=== PATIENT | female | born 1940 | race Caucasian/White ===

== ENCOUNTER → 2016-08-05 | Outpatient (CLI) | payer OTHER ==
[~2016-08-05] MED LIST: ANT25 PO; ASPEC81 PO; ASPI81TA28 PO; BUSP5TAB59 PO; BUSPAR 5 MG PO; CHOL1000 PO; CHOL100010 PO; CRAN1TAB9 PO; FAMO1TAB71 PO; GLC500 PO; GLIP5TAB3 PO; HYDR12.55; INSDGI SC; INSDGIPEN SC; LIRA18IN SC; LORA-741 PO; METF-384 PO; METO25TA56 PO; OMEGCAP2 PO; PROB1TAB16 PO; SIMV10TA2 PO
[2016-08-05 13:47] LABS: ESTIMATED AVERAGE GLUCOSE 157 mg/dl; HA1C FLAG Normal (Normal)
[2016-08-05 15:43] LABS: ALT/SGPT 41 U/L (12-78); AST/SGOT 23 U/L (15-37); BLOOD UREA NITROGEN 20 mg/dl (7-18); BUN/CREATININE RATIO 18.6 (10-20); CALCIUM 9.8 mg/dl (8.5-10.1); CARBON DIOXIDE 24 mmol/L (21-32); CHLORIDE 103 mmol/L (98-107); CHOLESTEROL 155 mg/dl (0-200); CHOLESTEROL/HDL RATIO 2.3; GLUCOSE 189 mg/dl (70-99); HDL CHOLESTEROL 66 mg/dl; POTASSIUM 4.2 mmol/L (3.5-5.1); SODIUM 139 mmol/L (136-145)
[2016-08-05 15:49] LABS: ALKALINE PHOSPHATASE 63 U/L (45-117); LDL CHOLESTEROL CALCULATED 43 mg/dl; TRIGLYCERIDES 232 mg/dl (0-150); VERY LOW DENSITY LIPOPROT CALC 46 mg/dl
== END | disposition home or self-care (01) ==
LOC: C.LABBFT 08:05
PROVIDERS: ATTEND Nurse Practitioner
DX: E11.29 Type 2 diabetes mellitus with other diabetic kidney complication (principal)

== ENCOUNTER → 2016-12-07 | Outpatient (CLI) | payer OTHER ==
[2016-12-07 12:32] LABS: ALT/SGPT 48 U/L (12-78); AST/SGOT 30 U/L (15-37); BLOOD UREA NITROGEN 28 mg/dl (7-18); BUN/CREATININE RATIO 23.2 (10-20); CARBON DIOXIDE 25 mmol/L (21-32); CHLORIDE 102 mmol/L (98-107); CHOLESTEROL 139 mg/dl (0-200); GLUCOSE 176 mg/dl (70-99); POTASSIUM 4.3 mmol/L (3.5-5.1); SODIUM 138 mmol/L (136-145); TRIGLYCERIDES 180 mg/dl (0-150); VERY LOW DENSITY LIPOPROT CALC 36 mg/dl
[2016-12-07 12:35] LABS: ALB/GLOB RATIO 1.1 (0.9-2); ALKALINE PHOSPHATASE 66 U/L (45-117); CHOLESTEROL/HDL RATIO 2.5; HDL CHOLESTEROL 55 mg/dl; LDL CHOLESTEROL CALCULATED 48 mg/dl
[2016-12-07 12:41] LABS: ESTIMATED AVERAGE GLUCOSE 166 mg/dl; HA1C FLAG Normal (Normal)
[2016-12-07 12:49] LABS: CALCIUM 10.1 mg/dl (8.5-10.1)
== END ==
LOC: C.LABBFT 07:43
PROVIDERS: ATTEND Nurse Practitioner
DX: E11.29 Type 2 diabetes mellitus with other diabetic kidney complication (principal)

== ENCOUNTER → 2017-01-27 | Outpatient (CLI) | payer OTHER ==
[2017-01-27 13:25] LABS: MANUAL MICROSCOPIC REQUIRED? YES; URINE APPEARANCE CLOUDY (CLEAR); URINE BILIRUBIN NEG (NEG); URINE COLOR RED; URINE NITRITE NEG (NEG); URINE PH 5.5 (4.5-7.5); URINE SPECIFIC GRAVITY 1.015 (1.000-1.030); UROBILINOGEN NEG (NEG)
[2017-01-27 13:42] LABS: REVIEW REQ? NO
[2017-01-27 13:44] LABS: URINE RBC >30 /hpf (0-4)
[2017-01-27 13:47] LABS: URINE BACTERIA NEG (NEG); URINE WBC >30 /hpf (0-5)
== END | disposition home or self-care (01) ==
LOC: C.LABBFT 10:49
PROVIDERS: ATTEND Physician Assistant Medical
DX: R39.9 Unspecified symptoms and signs involving the genitourinary system (principal)

== ENCOUNTER 2017-01-30 08:31 | Emergency (ER) | payer OTHER ==
[~2017-01-30] VITALS: Ht 157.5 cm; Wt 88.5 kg
[~2017-01-30 08:31] MED LIST changes: -ASPI81TA28 PO; -BUSP5TAB59 PO; -CHOL1000 PO; -INSDGIPEN SC; -LIRA18IN SC; -METF-384 PO; -METO25TA56 PO; -PROB1TAB16 PO
[2017-01-30 08:36] VITALS: TEMP 36.4; Ht 157.5 cm; Wt 88.5 kg
[2017-01-30] MEDS ORDERED: SODIUM CHLORIDE 0.9% 1000ML 1,000 ML IV STA (09:02)
[2017-01-30 09:24] LABS: BASO % 0.5 %; BASO ABS # 0.03 K/uL (0-0.2); COMPLETE YES; EOS % 2.2 %; HEMATOCRIT 40.2 % (37-47); IG% 0.2 %; LYMPH ABS # 1.35 K/uL (1.2-3.4); MEAN CELL VOLUME 91.4 fL (80-100); MEAN CORPUSCULAR HEMOGLOBIN 31.4 pg (25-34); MEAN CORPUSCULAR HGB CONC 34.3 g/dl (32-36); MEAN PLATELET VOLUME 10.7 fL (7.4-10.4); MONO % 10.1 %; PLATELET COUNT 184 K/uL (130-400); WHITE BLOOD COUNT 6.43 K/uL (4.8-10.8)
[2017-01-30 09:33] LABS: MANUAL MICROSCOPIC REQUIRED? YES; URINE APPEARANCE TURBID (CLEAR); URINE BILIRUBIN NEG (NEG); URINE COLOR BROWN; URINE NITRITE NEG (NEG); URINE PH 5.5 (4.5-7.5); URINE SPECIFIC GRAVITY 1.025 (1.000-1.030); UROBILINOGEN NEG (NEG)
[2017-01-30 09:34] LABS: REVIEW REQ? NO
[2017-01-30 09:41] LABS: BUN/CREATININE RATIO 20.2 (10-20); CALCIUM 9.2 mg/dl (8.5-10.1); CREATININE 1.3 mg/dl (0.60-1.20); POTASSIUM 4.1 mmol/L (3.5-5.1)
[2017-01-30 09:43] LABS: URINE RBC >30 /hpf (0-4); URINE WBC >30 /hpf (0-5)
--- NOTE | 2017-01-30 09:44 | DIAGNOSTIC IMAGING REPORT ---
CT SCAN OF THE ABDOMEN AND PELVIS WITHOUT IV CONTRAST CLINICAL HISTORY: Flank pain and hematuria. COMPARISON STUDY: No priors. TECHNIQUE: CT scan of the abdomen and pelvis is performed from the lung bases to the proximal femora. Images are reviewed in the axial, sagittal, and coronal planes. IV contrast was not administered for this examination. Automated dose control exposure was utilized. CT DOSE: 1485.78 mGy.cm FINDINGS: Lung bases: The heart is normal in size and without pericardial effusion. There are coronary artery calcifications. The lung bases are clear. Liver: The unenhanced liver is enlarged, measuring 22 cm in length. The liver demonstrates diffusely diminished attenuation consistent with hepatic steatosis. There is no intrahepatic biliary ductal dilatation. Gallbladder: Unremarkable. Spleen: Normal in size and attenuation. Pancreas: The unenhanced pancreas is moderately atrophic and grossly unremarkable. Adrenal glands: A 10 mm left adrenal nodule meets CT criteria for a fat-containing adenoma. The right adrenal gland is normal in appearance. Kidneys: The unenhanced kidneys are atrophic and without hydronephrosis. There are no renal calculi identified. There is no evidence of contour deforming renal mass lesion. There is a retroaortic left renal vein. Abdominal vasculature: The abdominal aorta is normal in course and caliber noting moderate atherosclerotic calcification. Bowel: The small bowel and colon are normal in course and caliber. There is advanced sigmoid diverticulosis without CT evidence of acute diverticulitis. The appendix is well-visualized and normal. Peritoneum: There is no intraperitoneal free air or abdominal ascites. There is a fat-containing umbilical hernia. Lymphadenopathy: None. Pelvic viscera: The bladder, uterus, and adnexa are normal as visualized. Skeletal structures: The skeletal structures are osteopenic. Mild to moderate lumbosacral spondylosis is observed. No lytic or blastic lesions are seen. IMPRESSION: 1. There are no acute infectious or inflammatory findings in the abdomen or pelvis. 2. Hepatomegaly and hepatic steatosis. 3. Advanced sigmoid diverticulosis without CT evidence of acute diverticulitis. 4. Additional findings as above. Electronically signed by: Te Watson M.D. 01/30/2017 9:43 AM Dictated Date/Time: 01/30/2017 9:32 AM
[2017-01-30 09:45] LABS: URINE BACTERIA 2+ (NEG)
[2017-01-30 09:46] LABS: ZZUR CULT IF INDIC CLEAN CATCH YES
[2017-01-30] MEDS ORDERED: METF-384 PO (09:56)
[2017-01-30] MEDS ORDERED: INSDGIPEN SC (09:56)
[2017-01-30] MEDS ORDERED: LIRA18IN SC (09:56)
[2017-01-30] MEDS ORDERED: METO25TA56 PO (09:56)
[2017-01-30] MEDS ORDERED: BUSP5TAB59 PO (09:56)
[2017-01-30] MEDS ORDERED: CHOL1000 PO (09:56)
[2017-01-30] MEDS ORDERED: ASPI81TA28 PO (09:56)
[2017-01-30] MEDS ORDERED: PROB1TAB16 PO (09:56)
--- NOTE | 2017-01-30 12:26 | EMERGENCY ROOM VISIT NOTE ---
History Report prepared by Cliff: Melinda Benitez Under the Supervision of: Dr. Estevan Berry D.O. First contact with patient: 08:44 Chief Complaint: URINARY SYMPTOMS Stated Complaint: BLOOD IN URINE,BURNING SENSATION,FREQUENCY Nursing Triage Summary: pt reports recent tx for UTI with 5 days of abx , urinary sx cont. History of Present Illness The patient is a 76 year old female who presents to the Emergency Room with complaints of persistent urinary symptoms that started 5 days ago. The patient states that she is experiencing increased urinary urgency, burning with urination, and hematuria. The hematuria started 3 days ago and is intermittent. The patient saw her PCP for the urinary symptoms, beside the hematuria, 5 days ago. She was started on a 5 day course of ciprofloxacin which she finished yesterday. She states that her symptoms returned this morning. The patient denies any pain including abdominal pain and back pain. A urine culture on January 27 was negative. Source of History: patient Onset: 5 days ago Position: other (bladder, urinary tract) Quality: other (urinary symptoms - increased urgency, burning, hematuria) Timing: other (persistent) Modifying Factors (Relieving): other (None) Associated Symptoms: No abdominal pain, No back pain Review of Systems See HPI for pertinent positives & negatives. A total of 10 systems reviewed and were otherwise negative. Past Medical & Surgical Medical Problems: (1) Diabetes (2) HTN (hypertension) (3) Vertigo Family History Patient reports no known family medical history. Social History Smoking Status: Never Smoker Marital Status: Current/Historical Medications Scheduled Aspirin (Aspirin Ec), 81 MG PO DAILY Buspirone Hcl (Buspirone Hcl), 1 TAB PO TID Cholecalciferol (Vitamin D3), 1 TAB PO DAILY Cranberry (Vaccinium Macrocarp (Cranberry), 300 MG PO DAILY Famotidine (Pepcid), 20 MG PO DAILY Glipizide (Glucotrol), 2.5 MG PO BIDM Insulin Glargine (Lantus Solostar), 42-44 UNITS SC UD Liraglutide (Victoza), 1.2 UNITS SC DAILY Metformin Hcl (Glucophage), 1,000 MG PO BID Metoprolol Tartrate (Lopressor) (Lopressor), 25 MG PO DAILY Palco-3 Fatty Acids (Fish Oil), 1 CAP PO DAILY Probiotic Product (Probiotic), 1 TAB PO DAILY Simvastatin (Zocor), 10 MG PO QPM Allergies Coded Allergies: No Known Allergies (Unverified , 01/30/17) Physical Exam Vital Signs Date Time Temp Pulse Resp B/P (MAP) Pulse Ox O2 Delivery O2 Flow Rate FiO2 01/30/17 13:11 82 16 166/90 94 01/30/17 12:05 96 17 157/83 95 Room Air 01/30/17 10:10 96 18 181/112 97 Room Air 01/30/17 08:36 36.4 91 20 180/84 98 Room Air Physical Exam CONSTITUTIONAL/VITAL SIGNS: Reviewed / noted above. GENERAL: Non-toxic in appearance. INTEGUMENTARY: Warm, dry, and Speed. HEAD: Normocephalic. EYES: without scleral icterus or trauma. ENT/OROPHARYNX: clear and moist. LYMPHADENOPATHY/NECK: Is supple without lymphadenopathy or meningismus. RESPIRATORY: Lungs clear and equal. CARDIOVASCULAR: Regular rate and rhythm. GI/ABDOMEN: Soft and nontender. No organomegaly or pulsatile mass. No rebound or guarding. Normal bowel sounds. EXTREMITIES: Warm and well perfused. BACK: No CVA tenderness. NEUROLOGICAL: Intact without focal deficits. PSYCHIATRIC: normal affect. MUSCULOSKELETAL: Normally developed with good muscle tone. Medical Decision & Procedures ER Provider Diagnostic Interpretation: CT results as stated below per my review and radiologist interpretation: CT SCAN OF THE ABDOMEN AND PELVIS WITHOUT IV CONTRAST FINDINGS: Lung bases: The heart is normal in size and without pericardial effusion. There are coronary artery calcifications. The lung bases are clear. Liver: The unenhanced liver is enlarged, measuring 22 cm in length. The liver demonstrates diffusely diminished attenuation consistent with hepatic steatosis. There is no intrahepatic biliary ductal dilatation. Gallbladder: Unremarkable. Spleen: Normal in size and attenuation. Pancreas: The unenhanced pancreas is moderately atrophic and grossly unremarkable. Adrenal glands: A 10 mm left adrenal nodule meets CT criteria for a fat-containing adenoma. The right adrenal gland is normal in appearance. Kidneys: The unenhanced kidneys are atrophic and without hydronephrosis. There are no renal calculi identified. There is no evidence of contour deforming renal mass lesion. There is a retroaortic left renal vein. Abdominal vasculature: The abdominal aorta is normal in course and caliber noting moderate atherosclerotic calcification. Bowel: The small bowel and colon are normal in course and caliber. There is advanced sigmoid diverticulosis without CT evidence of acute diverticulitis. The appendix is well-visualized and normal. Peritoneum: There is no intraperitoneal free air or abdominal ascites. There is a fat-containing umbilical hernia. Lymphadenopathy: None. Pelvic viscera: The bladder, uterus, and adnexa are normal as visualized. Skeletal structures: The skeletal structures are osteopenic. Mild to moderate lumbosacral spondylosis is observed. No lytic or blastic lesions are seen. IMPRESSION: 1. There are no acute infectious or inflammatory findings in the abdomen or pelvis. 2. Hepatomegaly and hepatic steatosis. 3. Advanced sigmoid diverticulosis without CT evidence of acute diverticulitis. 4. Additional findings as above. Electronically signed by: Te Watson M.D. 01/30/2017 9:43 AM Dictated Date/Time: 01/30/2017 9:32 AM Laboratory Results 01/30/17 09:10 Red Blood Count 4.40, Mean Corpuscular Volume 91.4, Mean Corpuscular Hemoglobin 31.4, Mean Corpuscular Hemoglobin Concent 34.3, Mean Platelet Volume 10.7, Neutrophils (%) (Auto) 66.0, Lymphocytes (%) (Auto) 21.0, Monocytes (%) (Auto) 10.1, Eosinophils (%) (Auto) 2.2, Basophils (%) (Auto) 0.5, Neutrophils # (Auto ) 4.25, Lymphocytes # (Auto) 1.35, Monocytes # (Auto) 0.65, Eosinophils # (Auto ) 0.14, Basophils # (Auto) 0.03 01/30/17 09:10 Test 01/30/17 09:10 White Blood Count 6.43 K/uL (4.8-10.8) Red Blood Count 4.40 M/uL (4.2-5.4) Hemoglobin 13.8 g/dL (12.0-16.0) Hematocrit 40.2 % (37-47) Mean Corpuscular Volume 91.4 fL (80-100) Mean Corpuscular Hemoglobin 31.4 pg (25-34) Mean Corpuscular Hemoglobin Concent 34.3 g/dl (32-36) Platelet Count 184 K/uL (130-400) Mean Platelet Volume 10.7 fL (7.4-10.4) Neutrophils (%) (Auto) 66.0 % Lymphocytes (%) (Auto) 21.0 % Monocytes (%) (Auto) 10.1 % Eosinophils (%) (Auto) 2.2 % Basophils (%) (Auto) 0.5 % Neutrophils # (Auto) 4.25 K/uL (1.4-6.5) Lymphocytes # (Auto) 1.35 K/uL (1.2-3.4) Monocytes # (Auto) 0.65 K/uL (0.11-0.59) Eosinophils # (Auto) 0.14 K/uL (0-0.5) Basophils # (Auto) 0.03 K/uL (0-0.2) RDW Standard Deviation 45.1 fL (36.4-46.3) RDW Coefficient of Variation 13.5 % (11.5-14.5) Immature Granulocyte % (Auto) 0.2 % Immature Granulocyte # (Auto) 0.01 K/uL (0.00-0.02) Urine Color BROWN Urine Appearance TURBID (CLEAR) Urine pH 5.5 (4.5-7.5) Urine Specific [place] 1.025 (1.000-1.030) Urine Protein 3+ (NEG) Urine Glucose (UA) NEG (NEG) Urine Ketones NEG (NEG) Urine Occult Blood 3+ (NEG) Urine Nitrite NEG (NEG) Urine Bilirubin NEG (NEG) Urine Urobilinogen NEG (NEG) Urine Leukocyte Esterase TRACE (NEG) Urine RBC >30 /hpf (0-4) Urine WBC >30 /hpf (0-5) Urine Epithelial Cells 20-30 /lpf (0-5) Urine Bacteria 2+ (NEG) Anion Gap 10.0 mmol/L (3-11) Est Creatinine Clear Calc Drug Dose 38.1 ml/min Estimated GFR () 46.2 Estimated GFR (Non- 39.8 BUN/Creatinine Ratio 20.2 (10-20) Calcium Level 9.2 mg/dl (8.5-10.1) Laboratory results as stated above per my review. Medications Administered Medications (Trade) Dose Ordered Sig/Bony Route Start Time Stop Time Status Last Admin Dose Admin Sodium Chloride 1,000 ml @ 999 mls/hr Q1H1M STAT IV 01/30/17 09:02 01/30/17 10:02 DC 01/30/17 09:13 999 MLS/HR ED Course 0859: Previous medical records were reviewed. The patient was evaluated in room B10. A complete history and physical examination was performed. 0902: Ordered Sodium Chloride 1000 ml @ 999 mls/hr IV 1228: On reevaluation, the patient is doing well. I discussed the results and findings with the patient. She verbalized agreement of the treatment plan. She was discharged home. Medical Decision Differential considered: pancreatitis, hepatitis, or acute cholecystitis, AAA, UTI, pyelonephritis, kidney stones, appendicitis, diverticulitis, shingles, bowel obstruction mesenteric ischemia, intussusception, hernia, ovarian torsion , ruptured ovarian cyst. Medication Reconciliation: I attest that I have personally reviewed the patient' s current medication list. Blood pressure Screening: Patient was found to have an elevated blood pressure and was referred to their primary doctor for recheck and further treatment. This is a 76-year-old female who presents to the ED with a chief complaint of hematuria. The patient states that she developed urinary symptoms on Tuesday and was started on Cipro. She states that she finished this yesterday. The patient developed hematuria this morning. She states she had a urine culture on the sixth. I did look this up and her culture was negative. She denies any other symptoms other than some burning with urination. Initial blood pressure revealed a hypertension. CBC is normal. BUN is 26 and creatinine is 1.3. Urine is concerning for infection. CT scan of the abdomen and pelvis did not show acute process. Because the patient had a recent culture 3 days ago that was negative. I feel her urine today is unlikely to be infected. She just finished Cipro yesterday. Culture is being performed. She will be contacted if the culture shows something. Otherwise she was given referral to follow-up with urology. She may benefit from cystoscopy. Impression Primary Impression: Hematuria Scribe Attestation The scribe's documentation has been prepared under my direction and personally reviewed by me in its entirety. I confirm that the note above accurately reflects all work, treatment, procedures, and medical decision making performed by me. Departure Information Dispostion Home / Self-Care Referrals Jeana Choudhury, C.R.N.P. (PCP) Gerson Briggs MD, Urology Patient Instructions ED Hematuria, My [facility] Additional Instructions A urine culture is being done. You will be called if your culture shows an infection. Follow-up with Dr. Gerson Briggs for recheck of your symptoms. Follow-up with your doctor for further care and evaluation in 1-2 days. Return to the emergency department for worsening or new symptoms or any concerns. You have been examined and treated today on an emergency basis only. This is not a substitute for, or an effort to provide, complete comprehensive medical care. It is impossible to recognize and treat all injuries or illnesses in a single emergency department visit. It is therefore important that you follow up closely with your doctor. Call as soon as possible for an appointment. Problem Qualifiers Primary Impression: Hematuria Hematuria type: unspecified type Qualified Codes: R31.9 - Hematuria, unspecified
[2017-01-30 13:11] VITALS: BP 166/90; PULSE 82; O2SAT 94
== END 2017-01-30 13:11 | disposition home or self-care (01) ==
LOC: C.EDB 08:33
DX: R31.9 Hematuria, unspecified (principal); E11.9 Type 2 diabetes mellitus without complications; I10 Essential (primary) hypertension; Z79.82 Long term (current) use of aspirin; Z79.4 Long term (current) use of insulin; Z79.899 Other long term (current) drug therapy

== ENCOUNTER → 2017-02-01 | Outpatient (CLI) | payer OTHER ==
[~2017-02-01] MED LIST changes: -ANT25 PO; -ASPEC81 PO; +ASPI81TA28 PO; +BUSP5TAB59 PO; -BUSPAR 5 MG PO; +CHOL1000 PO; -CHOL100010 PO; -GLC500 PO; -HYDR12.55; -INSDGI SC; +INSDGIPEN SC; +LIRA18IN SC; -LORA-741 PO; +METF-384 PO; +METO25TA56 PO; +PROB1TAB16 PO
== END | disposition home or self-care (01) ==
LOC: C.PATHSPEC 10:44
PROVIDERS: ATTEND Urology
DX: N39.0 Urinary tract infection, site not specified (principal)

== ENCOUNTER → 2017-02-14 | Outpatient (CLI) | payer OTHER ==
[2017-02-14 12:19] LABS: BLOOD UREA NITROGEN 19 mg/dl (7-18); BUN/CREATININE RATIO 16.8 (10-20)
== END | disposition home or self-care (01) ==
LOC: C.LABBFT 10:56
PROVIDERS: ATTEND Urology
DX: R31.0 Gross hematuria (principal)

== ENCOUNTER → 2017-02-16 | Outpatient (CLI) | payer OTHER ==
[~2017-02-16] MED LIST changes: +OPTIRAY 300 IV PRN
--- NOTE | 2017-02-16 14:41 | DIAGNOSTIC IMAGING REPORT ---
IV PYELOGRAM CLINICAL HISTORY: Hematuria. Urinary tract infections. COMPARISON STUDY: Abdominal CT dated 01/30/2017. TECHNIQUE: An abdominal [place] radiograph is performed. IVP pyelogram was then performed following the IV administration of iodinated contrast, tomographic images are acquired in the corticomedullary and excretory phases of enhancement. Overhead views of the renal collecting system and bladder were obtained in multiple obliquities both pre and post void. FINDINGS: Abdominal [place] radiograph shows a nonobstructed abdominal bowel gas pattern. No abnormal abdominal calcifications are identified. The skeletal structures are osteopenic. Lumbosacral spondylosis is observed. Following contrast administration there is symmetric renal cortical enhancement and contrast excretion. No hydronephrosis is seen. There are no filling defects identified within the renal pelvis bilaterally or along the course of the ureters. The bladder is normal as visualized. There is a small post void residual. IMPRESSION: 1. There is no radiographic evidence of nephrolithiasis. 2. Unremarkable IV pyelogram. 3. The bladder is normal as visualized. A small post void residual is identified. Electronically signed by: Te Watson M.D. 02/16/2017 2:40 PM Dictated Date/Time: 02/16/2017 2:37 PM
== END | disposition home or self-care (01) ==
LOC: C.RAD 12:27
PROVIDERS: ATTEND Urology
DX: N39.0 Urinary tract infection, site not specified (principal)

== ENCOUNTER → 2017-02-18 | Outpatient (CLI) | payer OTHER ==
[~2017-02-18] MED LIST changes: -OPTIRAY 300 IV PRN
[2017-02-18 10:07] LABS: BLOOD UREA NITROGEN 15 mg/dl (7-18)
== END | disposition home or self-care (01) ==
LOC: C.LAB 08:51
PROVIDERS: ATTEND Urology
DX: R31.0 Gross hematuria (principal)

== ENCOUNTER → 2017-04-07 | Outpatient (CLI) | payer OTHER ==
[2017-04-07 12:57] LABS: ESTIMATED AVERAGE GLUCOSE 169 mg/dl; HA1C FLAG Normal (Normal)
[2017-04-07 13:12] LABS: ALT/SGPT 42 U/L (12-78); BLOOD UREA NITROGEN 18 mg/dl (7-18); CALCIUM 9.5 mg/dl (8.5-10.1); CARBON DIOXIDE 26 mmol/L (21-32); CHLORIDE 104 mmol/L (98-107); GLUCOSE 186 mg/dl (70-99); POTASSIUM 4.2 mmol/L (3.5-5.1); SODIUM 138 mmol/L (136-145)
[2017-04-07 13:13] LABS: RATIO 23.3 mcg/mg (0-30.0)
[2017-04-07 13:15] LABS: ALKALINE PHOSPHATASE 54 U/L (45-117); AST/SGOT 29 U/L (15-37)
== END | disposition home or self-care (01) ==
LOC: C.LABBFT 07:57
PROVIDERS: ATTEND Nurse Practitioner
DX: E11.29 Type 2 diabetes mellitus with other diabetic kidney complication (principal); N28.9 Disorder of kidney and ureter, unspecified

== ENCOUNTER → 2017-10-13 | Outpatient (CLI) | payer OTHER ==
[~2017-10-13] MED LIST changes: +FAMO-103 PO; -FAMO1TAB71 PO
[2017-10-13 12:16] LABS: HEMATOCRIT 41.3 % (37-47); HEMOGLOBIN 13.7 g/dL (12.0-16.0); MEAN CELL VOLUME 91.2 fL (80-100); MEAN CORPUSCULAR HEMOGLOBIN 30.2 pg (25-34); MEAN CORPUSCULAR HGB CONC 33.2 g/dl (32-36); PLATELET COUNT 207 K/uL (130-400); RED CELL DISTRIBUTION WIDTH CV 14.1 % (11.5-14.5); RED CELL DISTRIBUTION WIDTH SD 47.2 fL (36.4-46.3); WHITE BLOOD COUNT 5.39 K/uL (4.8-10.8)
[2017-10-13 12:44] LABS: ALBUMIN 3.6 gm/dl (3.4-5.0); ALT/SGPT 39 U/L (12-78); AST/SGOT 21 U/L (15-37); BLOOD UREA NITROGEN 24 mg/dl (7-18); CALCIUM 9.9 mg/dl (8.5-10.1); CARBON DIOXIDE 24 mmol/L (21-32); CHOLESTEROL 145 mg/dl (0-200); CREATININE 1.14 mg/dl (0.60-1.20); GLUCOSE 174 mg/dl (70-99); POTASSIUM 4.5 mmol/L (3.5-5.1); SODIUM 136 mmol/L (136-145)
[2017-10-13 12:46] LABS: ALKALINE PHOSPHATASE 64 U/L (45-117); LDL CHOLESTEROL CALCULATED 40 mg/dl; TOTAL PROTEIN 7.7 gm/dl (6.4-8.2)
[2017-10-13 13:08] LABS: HEMOGLOBIN A1C 7.7 % (4.5-5.6)
== END | disposition home or self-care (01) ==
LOC: C.LABBFT 07:38
PROVIDERS: ATTEND Nurse Practitioner
DX: E11.29 Type 2 diabetes mellitus with other diabetic kidney complication (principal)

== ENCOUNTER 2024-01-28 21:14 | Inpatient (IN) ==
[2024-01-28] MEDS: ONDANSETRON INJ 2 MG/ML 2 ML VIAL ONE (21:36)
[2024-01-28] MEDS: PROCHLORPERAZINE 1 ML IV ONE (21:43)
[2024-01-28] MEDS: SODIUM CHLORIDE 0.9% 1,000 ML IV ONE ×2 (21:43→23:20)
--- NOTE | 2024-01-28 21:52 | Emergency Department Note ---
Impression & Plan Dizziness, Acute kidney injury superimposed on chronic kidney disease, Acute UTI (urinary tract infection), Ambulatory dysfunction ED Provider Note HISTORY OF PRESENT ILLNESS: Patient is an 83-year-old female presenting with "unsteadiness." Patient reports that around 8:00 this evening she became very unsteady. Reports that she feels unsteady both seated and standing. States that she has a history of vertigo and this "feels the same but also different." Denies any chest pain or shortness of breath with the episode. She does report breaking out into a sweat when this occurred. Denies any DVT or PE history. She had a fingerstick glucose at home of 150. Denies any abdominal pain or back pain during the episode. Denies any numbness or tingling or weakness in her extremities. She does report some nausea and a few episode of vomiting prior to arrival. Reports feeling nauseous on arrival to the ER. Denies any recent medication changes. Denies any recent falls or head injury or chiropractic manipulation of her neck ROS: as above PHYSICAL EXAM: Constitutional: Patient appears in no acute distress. HENT: Head: Normocephalic and atraumatic. Eyes: EOMI, PERRL Mouth/Throat: Mucous membranes moist. Neck: Trachea midline. Neck supple. Cardiovascular: RRR, No murmurs, rubs or gallops. Intact distal pulses. Pulmonary/Chest: No respiratory distress. Breath sounds clear and equal bilaterally. No wheezes or rales. Abdominal: Abdomen soft, no tenderness, rebound or guarding. Musculoskeletal: No edema, tenderness or deformity noted. Skin: Warm and dry. No rash, erythema, pallor or cyanosis Psychiatric: Appropriate mood and affect for situation. Neurological: Alert and keenly responsive. CN II-XII grossly intact, moving all extremities equally and fully. MDM: - Vitals signs showed tachycardia and tachypnea - History obtained via patient. History as above. - Chronic conditions affecting care: HTN; HLD; CKD; DM-2 - Differential diagnoses include, but are not limited to: CVA; intracranial hemorrhage; dysrhythmia; electrolyte abnormality; ACS - Order placed for continuous cardiac monitoring. At this time, monitor showed rate of 91 bpm with normal sinus rhythm, per my interpretation. - External medical records reviewed. Primary care visit note dated 08/31/2023 was reviewed. Patient follows in their clinic for her type 2 diabetes. She was also seen for new foot pain - EKG interpreted by myself showed normal sinus rhythm. Rate 93 bpm. QT 398. No acute ischemic changes. Noted to have an incomplete right bundle branch block. - Laboratory workup interpreted by myself showed normal WBC; normal PT/INR; stable electrolytes; elevated anion gap (14); AME on CKD (Cr 1.58 - baseline around 1.3); normal troponin; normal lipase - UA showed evidence of infection. Given 2g IV rocephin - Viral respiratory panel negative - CT head wo contrast negative for acute intracranial pathology - CXR negative for pneumonia, per my interpretation - Patient given 1L NS and 5 mg IV compazine. She started having further nausea and was given 1L NS and 4 mg IV zofran. - On reassessment, patient reports she was feeling "slightly better" but was still having some "unsteadiness" when she went to the restroom. She did apparently desaturate to 87% on room air and was placed on 2 L nasal cannula by nursing staff. However, on my reassessment at 0100 a.m. on 01/29/2024, the patient saturations are 96% on room air - Discussed results with the patient. She does not feel comfortable going home at this time given her "continued unsteadiness." - Discussion was had with counseling case manager about patient's case and need for admission - Hospitalist, Dr. Rivera, consulted for admission - Patient admitted to [facility] for further evaluation and management. ASSESSMENT AND PLAN: Diagnosis: dizziness; acute UTI; ambulatory dysfunction; AME on CKD Plan: admit Past Med/Surg History Problem List (Updated 01/29/24 @ 01:04 by Karina Snyder MD) Ambulatory dysfunction (Acute) Acute UTI (urinary tract infection) (Acute) Acute kidney injury superimposed on chronic kidney disease (Acute) Dizziness (Acute) Hypertriglyceridemia Gout Obesity (Acute) Controlled type 2 diabetes with renal manifestation (Acute) Atrial premature complex (Acute) Anxiety disorder due to medical condition (Acute) Chronic low back pain Stage III chronic kidney disease Arthritis (Acute) Hearing loss (Acute) Hypercholesterolemia (Acute) HTN (hypertension) (Chronic) Medical History Anxiety hx of situational anxiety - taking buspirone from 10 years ago Arthritis Diabetes mellitus, type 2 IDDM Hearing loss HTN (hypertension) Hypercholesterolemia Stage III chronic kidney disease Vertigo triggered by laying supine. Surgical History History of colonoscopy History of left cataract surgery History of tubal ligation Family History Father Cardiac disorder Myocardial infarction Mother Diabetes Cardiac disorder Hypertension Grandmother (Paternal) Breast cancer Other No family history of adverse response to anesthesia Denies family history of Ovarian cancer Prostate cancer Colorectal cancer Social History Smoking Status: Never smoker Tobacco Type: Cigarettes Age Started Using Tobacco: 16; Age Quit Using Tobacco: 62; packs per day: 1; Second Hand Exposure: No; Do You Dip or Chew Tobacco: No; Hx Alcohol Use: No Hx Substance Use: No Preferred Language: Croatian Communication Ability: Effective Visual Impairment: No Limitations Hearing Ability: Use of Hearing Aid Vendor Management Specialist Required: No Beliefs That Will Affect Care: None marital status: Current Living Situation: Spouse current occupational status: retired current occupation: used to teach middle school, all subjects Feels Safe at Home: Yes Childhood Exposure to Second-Hand Smoke: Yes Diet: regular Dental Care, Regularly: Yes Physical Activity Frequency: 1-2 Times per Week Seatbelt Use: always Sunscreen Use: No Assistive Devices: Denture - Upper, Denture - Lower and Glasses Allergies Allergies Allergy/AdvReac Type Severity Reaction Status Date / Time No Known Allergies Allergy Verified 09/02/23 14:35 Home Meds Home Medications Medication Instructions Recorded Confirmed cholecalciferol (vitamin D3) 25 25 mcg PO QAM 01/02/20 01/29/24 mcg (1,000 unit) capsule cranberry extract 250 mg capsule 250 mg PO QAM 10/20/22 01/29/24 famotidine 20 mg tablet 20 mg PO QPM 10/20/22 01/29/24 acarbose 25 mg tablet 25 mg PO UD 01/29/24 01/29/24 amlodipine 5 mg tablet 5 mg PO DAILY 01/29/24 01/29/24 dulaglutide 1.5 mg/0.5 mL 1.5 mg subcut WK 01/29/24 01/29/24 subcutaneous pen injector (Trulicity) Previous Rx's Medication Instructions Recorded metformin 1,000 mg tablet 1,000 mg PO BID #180 tabs 12/31/22 tetanus-diphtheria toxoids-Td 2 Lf 0.5 ml IM ONCE #0.5 mL 02/28/23 unit-2 Lf unit/0.5 mL IM suspension (TDVAX) blood sugar diagnostic (OneTouch #100 ea 03/01/23 Ultra Test strips) tizanidine 4 mg tablet 2 mg (1/2 x 4 mg) PO BID PRN 03/11/23 muscle spasticity #30 tabs metoprolol succinate 50 mg 50 mg PO BID #180 tabs 04/25/23 tablet,extended release 24 hr lisinopril 40 mg tablet 40 mg PO QAM #90 tabs 06/30/23 empagliflozin 25 mg tablet 25 mg PO QAM 90 days #90 tabs 08/04/23 (Jardiance) allopurinol 100 mg tablet 50 mg (1/2 x 100 mg) PO DAILY 90 10/04/23 days #45 tabs insulin glargine 100 unit/mL (3 54 unit (0.54 mL) subcut QAM #15 mL 11/23/23 mL) subcutaneous pen (Lantus Solostar U-100 Insulin) pen needle, diabetic 31 gauge x #100 ea 11/23/23 3/" buspirone 5 mg tablet 5 mg PO TID #270 tabs 01/10/24 simvastatin 10 mg tablet 10 mg PO QPM #90 tabs 01/10/24 Results & Data (ED) Vital Signs Vital Signs - 24 hr 01/28/24 21:25 01/28/24 21:33 01/28/24 21:39 Temperature 36.5 C Temperature Source Oral Pulse Rate 91 H 89 Pulse Rate [Apical] 88 Respiratory Rate 20 24 Respiratory Effort / Characteristics Non-Labored Spontaneous Respiratory Depth Normal Respiratory Pattern Regular Blood Pressure 149/79 H Blood Pressure [Right Arm] 119/76 Blood Pressure Mean 102 Blood Pressure Mean [Right Arm] 90 Pulse Oximetry 97 95 Oxygen Delivery Method Room Air Room Air Oxygen Flow Rate Sepsis Recent Fever Within 48 Hours No Sepsis New/Unexplained Change in Mental Status No Sepsis Action Taken by Nursing No Action Required Oxygen Flow Rate - Titration Pulse Oximetry Post Tiitration 01/28/24 21:42 01/28/24 22:31 01/28/24 23:27 Temperature Temperature Source Pulse Rate 92 H Pulse Rate [Apical] 96 H Respiratory Rate 27 H 29 H Respiratory Effort / Characteristics Respiratory Depth Respiratory Pattern Blood Pressure Blood Pressure [Right Arm] 103/70 Blood Pressure Mean Blood Pressure Mean [Right Arm] 81 Pulse Oximetry 95 94 87 L Oxygen Delivery Method Room Air Room Air Oxygen Flow Rate 0 Sepsis Recent Fever Within 48 Hours Sepsis New/Unexplained Change in Mental Status Sepsis Action Taken by Nursing Oxygen Flow Rate - Titration 2 Pulse Oximetry Post Tiitration 93 01/29/24 00:00 Temperature Temperature Source Pulse Rate Pulse Rate [Apical] 91 H Respiratory Rate 24 Respiratory Effort / Characteristics Respiratory Depth Respiratory Pattern Blood Pressure Blood Pressure [Right Arm] 132/84 Blood Pressure Mean Blood Pressure Mean [Right Arm] 100 Pulse Oximetry 96 Oxygen Delivery Method Nasal Cannula Oxygen Flow Rate 2 Sepsis Recent Fever Within 48 Hours Sepsis New/Unexplained Change in Mental Status Sepsis Action Taken by Nursing Oxygen Flow Rate - Titration Pulse Oximetry Post Tiitration Laboratory Data 01/28/24 21:36 01/28/24 21:36 Lab Results 01/28/24 01/28/24 01/28/24 Range/Units 21:36 21:38 21:40 WBC 8.11 (4.8-10.8) K/ul RBC 4.61 (4.20-5.40) M/uL Hgb 12.0 (12.0-16.0) g/dl Hct 39.1 (37.0-47.0) % MCV 84.8 (80.0-100.0) fL MCH 26.0 (25.0-34.0) pg MCHC 30.7 L (32.0-36.0) g/dL RDW Std Deviation 45.4 (36.4-46.3) fL RDW Coeff of Rachid 15.0 H (11.5-14.5) % Plt Count 305 (130-400) K/uL MPV 9.9 (9.4-12.4) fL Immature Gran % (Auto) 0.2 % Neut % (Auto) 48.0 % Lymph % (Auto) 37.1 % [place] % (Auto) 10.7 % Eos % (Auto) 3.3 % Baso % (Auto) 0.7 % Neut # (Auto) 3.88 (1.40-6.50) K/uL Lymph # (Auto) 3.01 (1.20-3.40) K/uL [place] # (Auto) 0.87 H (0.11-0.59) K/uL Eos # (Auto) 0.27 (0.00-0.50) K/uL Baso # (Auto) 0.06 (0.00-0.20) K/uL Immature Gran # (Auto) 0.02 (0.01-0.20) K/uL PT 10.9 (9.0-12.0) Seconds INR 1.0 (0.9-1.1) Sodium 136 (136-145) mmol/L Potassium 4.2 (3.5-5.1) mmol/L Chloride 101 (98-107) mmol/L Carbon Dioxide 21 (21-32) mmol/L Anion Gap 14 H (3-11) BUN 27 H (6-23) mg/dl Creatinine 1.58 H (0.6-1.2) mg/dl Est Cr Clr Drug Dosing 29.2 ml/min Est GFR ( Amer) 34.7 ml/min Est GFR (Non-Af Amer) 29.9 ml/min BUN/Creatinine Ratio 17.1 (10-20) Glucose 132 H (70-99(Fasting)) mg/dl Calcium 9.6 (8.6-10.3) mg/dl Magnesium 1.9 (1.7-2.4) mg/dl Total Bilirubin 0.4 (0.2-1.0) mg/dl AST 13 (13-39) U/L ALT 9 (7-52) U/L Alkaline Phosphatase 68 (34-104) U/L Troponin I High Sens 4.4 (0-14) pg/ml Total Protein 8.4 H (6.0-8.3) gm/dl Albumin 4.6 (3.4-5.0) gm/dl Globulin 3.8 (2.5-4.0) gm/dl Albumin/Globulin Ratio 1.2 (0.9-2) Lipase 79 (11-82) U/L Urine Color Urine Appearance (Clear) Urine pH (4.5-7.5) Ur Specific [place] (1.000-1.030) Urine Protein (Negative) Urine Glucose (UA) (Negative) Urine Ketones (Negative) Urine Blood (Negative) Urine Nitrite (Negative) Urine Bilirubin (Negative) Urine Urobilinogen (Negative) Ur Leukocyte Esterase (Negative) Urine WBC (Auto) (0-5) /hpf Urine RBC (Auto) (0-2) /hpf U Hyaline Cast (Auto) (0-2) /lpf U Epithel Cells (Auto) (0-2) /hpf Urine Bacteria (Auto) (None Seen) Adenovirus (PCR) Not Detected (NotDetected) B. pertussis DNA (PCR) Not Detected (NotDetected) B.parapertussis DNA PCR Not Detected (NotDetected) C. pneumoniae DNA (PCR) Not Detected (NotDetected) Coronavirus OC43 (PCR) Not Detected (NotDetected) Coronavirus HKU1 (PCR) Not Detected (NotDetected) Coronavirus 229E (PCR) Not Detected (NotDetected) SARS-CoV-2 (PCR) Not Detected (NotDetected) Coronavirus NL63 (PCR) Not Detected (NotDetected) Human Metapneumovir PCR Not Detected (NotDetected) Influenza Type A (PCR) Not Detected (NotDetected) Influenza Type B (PCR) Not Detected (NotDetected) M. pneumoniae (PCR) Not Detected (NotDetected) Parainfluenza 1 (PCR) Not Detected (NotDetected) Parainfluenza 2 (PCR) Not Detected (NotDetected) Parainfluenza 3 (PCR) Not Detected (NotDetected) Parainfluenza 4 (PCR) Not Detected (NotDetected) RSV (PCR) Not Detected (NotDetected) Entero/Rhino (PCR) Not Detected (NotDetected) Blood Type O Positive Antibody Screen NEGATIVE 01/28/24 Range/Units 22:30 WBC (4.8-10.8) K/ul RBC (4.20-5.40) M/uL Hgb (12.0-16.0) g/dl Hct (37.0-47.0) % MCV (80.0-100.0) fL MCH (25.0-34.0) pg MCHC (32.0-36.0) g/dL RDW Std Deviation (36.4-46.3) fL RDW Coeff of Rachid (11.5-14.5) % Plt Count (130-400) K/uL MPV (9.4-12.4) fL Immature Gran % (Auto) % Neut % (Auto) % Lymph % (Auto) % [place] % (Auto) % Eos % (Auto) % Baso % (Auto) % Neut # (Auto) (1.40-6.50) K/uL Lymph # (Auto) (1.20-3.40) K/uL [place] # (Auto) (0.11-0.59) K/uL Eos # (Auto) (0.00-0.50) K/uL Baso # (Auto) (0.00-0.20) K/uL Immature Gran # (Auto) (0.01-0.20) K/uL PT (9.0-12.0) Seconds INR (0.9-1.1) Sodium (136-145) mmol/L Potassium (3.5-5.1) mmol/L Chloride (98-107) mmol/L Carbon Dioxide (21-32) mmol/L Anion Gap (3-11) BUN (6-23) mg/dl Creatinine (0.6-1.2) mg/dl Est Cr Clr Drug Dosing ml/min Est GFR ( Amer) ml/min Est GFR (Non-Af Amer) ml/min BUN/Creatinine Ratio (10-20) Glucose (70-99(Fasting)) mg/dl Calcium (8.6-10.3) mg/dl Magnesium (1.7-2.4) mg/dl Total Bilirubin (0.2-1.0) mg/dl AST (13-39) U/L ALT (7-52) U/L Alkaline Phosphatase (34-104) U/L Troponin I High Sens (0-14) pg/ml Total Protein (6.0-8.3) gm/dl Albumin (3.4-5.0) gm/dl Globulin (2.5-4.0) gm/dl Albumin/Globulin Ratio (0.9-2) Lipase (11-82) U/L Urine Color Yellow Urine Appearance Cloudy A (Clear) Urine pH 5.5 (4.5-7.5) Ur Specific [place] 1.020 (1.000-1.030) Urine Protein Trace H (Negative) Urine Glucose (UA) 3+ H (Negative) Urine Ketones Trace H (Negative) Urine Blood Negative (Negative) Urine Nitrite Negative (Negative) Urine Bilirubin Negative (Negative) Urine Urobilinogen Negative (Negative) Ur Leukocyte Esterase 2+ H (Negative) Urine WBC (Auto) 21-50 H (0-5) /hpf Urine RBC (Auto) 0-2 (0-2) /hpf U Hyaline Cast (Auto) 0-2 (0-2) /lpf U Epithel Cells (Auto) 6-10 H (0-2) /hpf Urine Bacteria (Auto) 1+ H (None Seen) Adenovirus (PCR) (NotDetected) B. pertussis DNA (PCR) (NotDetected) B.parapertussis DNA PCR (NotDetected) C. pneumoniae DNA (PCR) (NotDetected) Coronavirus OC43 (PCR) (NotDetected) Coronavirus HKU1 (PCR) (NotDetected) Coronavirus 229E (PCR) (NotDetected) SARS-CoV-2 (PCR) (NotDetected) Coronavirus NL63 (PCR) (NotDetected) Human Metapneumovir PCR (NotDetected) Influenza Type A (PCR) (NotDetected) Influenza Type B (PCR) (NotDetected) M. pneumoniae (PCR) (NotDetected) Parainfluenza 1 (PCR) (NotDetected) Parainfluenza 2 (PCR) (NotDetected) Parainfluenza 3 (PCR) (NotDetected) Parainfluenza 4 (PCR) (NotDetected) RSV (PCR) (NotDetected) Entero/Rhino (PCR) (NotDetected) Blood Type Antibody Screen Administered Medications Discontinued Medications Sodium Chloride (Nss) 1,000 mls @ 999 mls/hr IV .Q1H1M ONE Stop: 01/28/24 22:35 Last Infusion: 01/28/24 22:49 Dose: Infused Documented By: Admin: 01/28/24 21:43 Dose: 999 mls/hr Documented By: GONZALO Prochlorperazine (Compazine) 1 mls @ 1 mls/min IV ONE ONE Stop: 01/28/24 21:36 Last Admin: 01/28/24 21:43 Dose: 1 mls/min Documented By: GONZALO Sodium Chloride (Nss) 1,000 mls @ 999 mls/hr IV .Q1H1M ONE Stop: 01/29/24 00:05 Last Admin: 01/28/24 23:20 Dose: 999 mls/hr Documented By: GONZALO Ceftriaxone Sodium (Rocephin) 2,000 mg in 50 mls @ 100 mls/hr IV NOW STA Stop: 01/28/24 23:35 Last Infusion: 01/28/24 23:54 Dose: Infused Documented By: Admin: 01/28/24 23:20 Dose: 100 mls/hr Documented By: GONZALO Ondansetron HCl (Ondansetron Inj 2 Mg/Ml 2 Ml Vial) Confirm Administered Dose 4 mg .ROUTE .STK-MED ONE Stop: 01/28/24 21:29 Last Admin: 01/28/24 21:36 Dose: Not Given Documented By: LINWOOD Ondansetron HCl (Ondansetron Inj 2 Mg/Ml 2 Ml Vial) 4 mg IV NOW STA Stop: 01/28/24 23:07 Last Admin: 01/28/24 23:20 Dose: 4 mg Documented By: GONZALO Imaging Data Radiologist's Impression: Head CT 01/28/24 21:48 Exam(s): CT HEAD Without Contrast EXAM: CT Head Without Intravenous Contrast CLINICAL HISTORY: Reason for exam: dizziness; vomiting. TECHNIQUE: Axial computed tomography images of the head/brain without intravenous contrast. CTDI is 39.1 mGy and DLP is 547.75 mGy-cm. Automated exposure control was utilized for the study. A dose lowering technique was utilized adhering to the principles of ALARA. COMPARISON: No relevant prior studies available. FINDINGS: Brain: Unremarkable. No hemorrhage. Mild nonspecific white matter changes.. No edema. Ventricles: Unremarkable. No ventriculomegaly. Bones/joints: Unremarkable. No acute fracture. Soft tissues: Unremarkable. Sinuses: Unremarkable as visualized. No acute sinusitis. Mastoid air cells: Unremarkable as visualized. No mastoid effusion. IMPRESSION: No evidence of acute intracranial pathology. Electronically signed by: Margi Marcial MD 01/29/24 00:33 AM Discharge Plan Visit Data Chief Complaint: Syncope (Near Syncope) Stated Complaint: FEELS FAINT, VOMITING BLOOD ED Provider: Karina Snyder Discharge Problem: Dizziness, Acute kidney injury superimposed on chronic kidney disease, Acute UTI (urinary tract infection), Ambulatory dysfunction Forms Stand Alone Forms: My [facility] [employer] Prescriptions Prescriptions: No Action metformin 1,000 mg tablet 1,000 mg PO BID Qty: 180 3RF (DME) OneTouch Ultra Test Strip See Rx Instructions .Route Qty: 100 5RF Rx Instructions: Test daily metoprolol succinate 50 mg tablet extended release 24 hr 50 mg PO BID Qty: 180 3RF lisinopril 40 mg tablet 40 mg PO QAM Qty: 90 3RF Jardiance 25 mg tablet 25 mg PO QAM 90 Days Qty: 90 4RF allopurinol 100 mg tablet 50 mg PO DAILY 90 Days Qty: 45 2RF Rx Instructions: take with a meal insulin glargine [Lantus Solostar U-100 Insulin] 100 unit/mL (3 mL) insulin pen 54 unit SQ QAM Qty: 15 3RF Rx Instructions: 54 units subcut daily; (DME) pen needle, diabetic 31 gauge x 3/16" needle See Dose Instructions .ROUTE .MEDSUPPLY Qty: 100 5RF Rx Instructions: As directed- TWICE DAILY buspirone 5 mg tablet 5 mg PO TID Qty: 270 1RF simvastatin 10 mg tablet 10 mg PO QPM Qty: 90 3RF cholecalciferol (vitamin D3) 25 mcg (1,000 unit) capsule 25 mcg PO QAM TDVAX 2-2 Lf unit/0.5 mL suspension 0.5 ml IM ONCE Qty: 0.5 0RF Rx Instructions: please administer; okay to sub for tdap tizanidine 4 mg tablet 2 mg PO BID PRN (Reason: muscle spasticity) Qty: 30 1RF Rx Instructions: 1 or 2 pills twice a day for spasm and muscle tightness cranberry extract 250 mg capsule 250 mg PO QAM Rx Instructions: administer with a meal famotidine 20 mg tablet 20 mg PO QPM amlodipine 5 mg tablet 5 mg PO DAILY acarbose 25 mg tablet 25 mg PO UD Rx Instructions: take after each meal 3 times a day (when trulicity is unavailable) Trulicity 1.5 mg/0.5 mL pen injector 1.5 mg SUBCUT WK Referrals Referrals: Krystal Jung MD [Primary Care Provider] -
[2024-01-28 21:54] LABS: Basophils # (auto) 0.06 K/uL (0.00-0.20); Basophils % (auto) 0.7 %; Eosinophils # (auto) 0.27 K/uL (0.00-0.50); Eosinophils % (auto) 3.3 %; Hematocrit (blood only) 39.1 % (37.0-47.0); Immature Granulocytes # (auto) 0.02 K/uL (0.01-0.20); Immature Granulocytes % (auto) 0.2 %; Lymphocytes # (auto) 3.01 K/uL (1.20-3.40); Lymphocytes % (auto) 37.1 %; Mean Corpuscular Hgb Conc 30.7 g/dL (32.0-36.0); Mean Corpuscular Volume 84.8 fL (80.0-100.0); Mean Platelet Volume 9.9 fL (9.4-12.4); Monocytes # (auto) 0.87 K/uL (0.11-0.59); Monocytes % (auto) 10.7 %; Neutrophils # (auto) 3.88 K/uL (1.40-6.50); Platelet Count 305 K/uL (130-400); RDW Standard Deviation 45.4 fL (36.4-46.3); Red Blood Count 4.61 M/uL (4.20-5.40); White Blood Count 8.11 K/ul (4.8-10.8)
[2024-01-28 22:12] LABS: Albumin Globulin Ratio 1.2 (0.9-2); Albumin Level 4.6 gm/dl (3.4-5.0); BUN Creatinine Ratio 17.1 (10-20); Bilirubin,Total 0.4 mg/dl (0.2-1.0); Calcium 9.6 mg/dl (8.6-10.3); Creatinine Clr Calc Pharmacy 29.2 ml/min; Est GFR (African American) 34.7 ml/min; Est GFR (Non-African American) 29.9 ml/min; Globulin 3.8 gm/dl (2.5-4.0); Magnesium 1.9 mg/dl (1.7-2.4); Potassium 4.2 mmol/L (3.5-5.1); Total Protein 8.4 gm/dl (6.0-8.3)
[2024-01-28 22:17] LABS: Troponin I High Sensitivity 4.4 pg/ml (0-14)
[2024-01-28 22:25] LABS: Prothrombin Time 10.9 Seconds (9.0-12.0)
[2024-01-28 22:52] LABS: Adenovirus PCR Not Detected (NotDetected); Bordetella parapertussis PCR Not Detected (NotDetected); Bordetella pertussis PCR Not Detected (NotDetected); Chlamydia pneumoniae PCR Not Detected (NotDetected); Coronavirus 229E PCR Not Detected (NotDetected); Coronavirus CoV-2 (COVID19)PCR Not Detected (NotDetected); Coronavirus HKU1 PCR Not Detected (NotDetected); Coronavirus NL63 PCR Not Detected (NotDetected); Coronavirus OC43PCR Not Detected (NotDetected); Human Metapneumovirus PCR Not Detected (NotDetected); Influenza A PCR Not Detected (NotDetected); Influenza B PCR Not Detected (NotDetected); Mycoplasma pneumoniae PCR Not Detected (NotDetected); Parainfluenza Virus 1 PCR Not Detected (NotDetected); Parainfluenza Virus 2 PCR Not Detected (NotDetected); Parainfluenza Virus 3 PCR Not Detected (NotDetected); Parainfluenza Virus 4 PCR Not Detected (NotDetected); Respiratory Syncytial VirusPCR Not Detected (NotDetected); Rhinovirus/Enterovirus PCR Not Detected (NotDetected)
[2024-01-28 23:04] LABS: Appearance Urine Cloudy (Clear); Bacteria Urine Automated 1+ (None Seen); Bilirubin Urine Negative (Negative); Blood Urine Negative (Negative); Cast Urine Automated 0-2 /lpf (0-2); Color Urine Yellow; Glucose Urine UA 3+ (Negative); Ketones Urine Trace (Negative); Leukocyte Esterase Urine 2+ (Negative); Nitrite Urine Negative (Negative); Protein Urine Trace (Negative); RBC Urine Automated 0-2 /hpf (0-2); Urobilinogen Urine Negative (Negative); WBC Urine Automated 21-50 /hpf (0-5); pH Urine 5.5 (4.5-7.5)
[2024-01-28] MEDS: ONDANSETRON INJ 2 MG/ML 2 ML VIAL IV STA (23:20)
[2024-01-28] MEDS: cefTRIAXone SODIUM 2,000 MG/50 ML BAG IV STA (23:20)
--- NOTE | 2024-01-29 00:34 | CT Scan Report ---
Exam(s): CT HEAD Without Contrast EXAM: CT Head Without Intravenous Contrast CLINICAL HISTORY: Reason for exam: dizziness; vomiting. TECHNIQUE: Axial computed tomography images of the head/brain without intravenous contrast. CTDI is 39.1 mGy and DLP is 547.75 mGy-cm. Automated exposure control was utilized for the study. A dose lowering technique was utilized adhering to the principles of ALARA. COMPARISON: No relevant prior studies available. FINDINGS: Brain: Unremarkable. No hemorrhage. Mild nonspecific white matter changes.. No edema. Ventricles: Unremarkable. No ventriculomegaly. Bones/joints: Unremarkable. No acute fracture. Soft tissues: Unremarkable. Sinuses: Unremarkable as visualized. No acute sinusitis. Mastoid air cells: Unremarkable as visualized. No mastoid effusion. IMPRESSION: No evidence of acute intracranial pathology. Electronically signed by: Margi Marcial MD 01/29/24 00:33 AM
--- NOTE | 2024-01-29 01:59 | History & Physical Report ---
Date of Service January 29, 2024 Assessment & Plan (1) Acute UTI (urinary tract infection): (2) Acute kidney injury superimposed on chronic kidney disease: (3) Ambulatory dysfunction: (4) Controlled type 2 diabetes with renal manifestation: (5) Hypertriglyceridemia: (6) Dizziness: (7) Chronic low back pain: (8) HTN (hypertension): (9) Gout: Plan Jade is an 83F w/ PMH of T2DM, PACs, anxiety, chronic LBP, CKD3, HLD, and HTN who presents with concern for a near syncopal event at home. Dizziness/Unsteadiness - Negative CT Head, Negative CXR - Ddx includes dehydration, UTI, vertigo - CBC & electrolytes unremarkable - Hemodynamically stable - Suspect 2/2 dehydration Urinary Tract Infection - Abnormal Urinalysis w/ increased urinary frequency and diaphoresis/subjective fevers - Urine culture pending - Continue Ceftriaxone AME on CKD3 | Dehydration - Baseline 1.3, now 1.59 - Continue IVFs @ 1.5x maintenance - Hold nephrotoxic medications - Trend BMP Gait Instability - Acute - PT/OT ordered Chronic Conditions: - T2DM - Home medications held, SSI inpatient w/ ACHS checks - Anxiety - Continue home medication - Chronic LBP - Tylenol PRN - HLD - Statin held for AME - HTN - Continue Amlodipine and Metoprolol, ACEI/ARB held for AME - Gout - continue home medication Code: DNR/DNI Diet: DM2 IVFs: 1.5 x mIVF Dispo: Med/Tele History of Present Illness Chief Complaint: Near Syncope Primary Care Provider: Krystal Jung MD Jade is an 83F w/ PMH of T2DM, PACs, anxiety, chronic LBP, CKD3, HLD, and HTN who presents with concern for a near syncopal event at home. ED Course: 2L NSS, Compazine, Zofran, Ceftriaxone HPI: Starting today, patient has been feeling dizzy and unsteady w/ episodes of sweating profusely. Had an episode around lunch, took a nap and it resolved w/o additional intervention. Around 830 PM symptoms returned and were unrelenting so she presented to ED. Hx of vertigo, this felt similar, but past episodes were always triggered by laying flat and looking straight up. No preceding symptoms (headaches, nausea, chest pain, dyspnea) Urinating regularly, no dysuria or suprapubic pressure. Does endorse increased night time urinary frequency. All prior UTIs have had hematuria and dysuria. Notes that she has been having more hot flashes when she goes back to bed at night. No medication changes, on room air at home, independent with all ADLs. Now endorsing unsteadiness when walking to bathroom. Notes she has continued to eat meals TID w/ occasional snacks and hydrating well (6-8 8 ounce glasses water daily) Allergies Allergy/AdvReac Type Severity Reaction Status Date / Time No Known Allergies Allergy Verified 09/02/23 14:35 Home Medications Medication Instructions Recorded Confirmed Type cholecalciferol (vitamin D3) 25 25 mcg PO QAM 01/02/20 01/29/24 History mcg (1,000 unit) capsule cranberry extract 250 mg capsule 250 mg PO QAM 10/20/22 01/29/24 History famotidine 20 mg tablet 20 mg PO QPM 10/20/22 01/29/24 History metformin 1,000 mg tablet 1,000 mg PO BID #180 tabs 12/31/22 01/29/24 Rx tetanus-diphtheria toxoids-Td 2 Lf 0.5 ml IM ONCE #0.5 mL 02/28/23 01/29/24 Rx unit-2 Lf unit/0.5 mL IM suspension (TDVAX) blood sugar diagnostic (OneTouch #100 ea 03/01/23 01/29/24 Rx Ultra Test strips) tizanidine 4 mg tablet 2 mg (1/2 x 4 mg) PO BID PRN 03/11/23 01/29/24 Rx muscle spasticity #30 tabs metoprolol succinate 50 mg 50 mg PO BID #180 tabs 04/25/23 01/29/24 Rx tablet,extended release 24 hr lisinopril 40 mg tablet 40 mg PO QAM #90 tabs 06/30/23 01/29/24 Rx empagliflozin 25 mg tablet 25 mg PO QAM 90 days #90 tabs 08/04/23 01/29/24 Rx (Jardiance) allopurinol 100 mg tablet 50 mg (1/2 x 100 mg) PO DAILY 90 10/04/23 01/29/24 Rx days #45 tabs insulin glargine 100 unit/mL (3 54 unit (0.54 mL) subcut QAM #15 mL 11/23/23 01/29/24 Rx mL) subcutaneous pen (Lantus Solostar U-100 Insulin) pen needle, diabetic 31 gauge x #100 ea 11/23/23 Rx 3/16" buspirone 5 mg tablet 5 mg PO TID #270 tabs 01/10/24 01/29/24 Rx simvastatin 10 mg tablet 10 mg PO QPM #90 tabs 01/10/24 01/29/24 Rx acarbose 25 mg tablet 25 mg PO UD 01/29/24 01/29/24 History amlodipine 5 mg tablet 5 mg PO DAILY 01/29/24 01/29/24 History dulaglutide 1.5 mg/0.5 mL 1.5 mg subcut WK 01/29/24 01/29/24 History subcutaneous pen injector (Trulicity) Past Med/Surg History Problem List (Updated 01/29/24 @ 04:45 by Donna Chavez) Ambulatory dysfunction (Acute) Acute UTI (urinary tract infection) (Acute) Acute kidney injury superimposed on chronic kidney disease (Acute) Dizziness (Acute) Hypertriglyceridemia Gout Obesity (Acute) Controlled type 2 diabetes with renal manifestation (Acute) Atrial premature complex (Acute) Anxiety disorder due to medical condition (Acute) Chronic low back pain Stage III chronic kidney disease Arthritis (Acute) Hearing loss (Acute) Hypercholesterolemia (Acute) HTN (hypertension) (Chronic) Medical History Anxiety hx of situational anxiety - taking buspirone from 10 years ago Arthritis Diabetes mellitus, type 2 IDDM Hearing loss HTN (hypertension) Hypercholesterolemia Stage III chronic kidney disease Vertigo triggered by laying supine. Surgical History History of colonoscopy History of left cataract surgery History of tubal ligation Family History Father Cardiac disorder Myocardial infarction Mother Diabetes Cardiac disorder Hypertension Grandmother (Paternal) Breast cancer Other No family history of adverse response to anesthesia Denies family history of Ovarian cancer Prostate cancer Colorectal cancer Social History Smoking Status: Never smoker Tobacco Type: Cigarettes Age Started Using Tobacco: 16; Age Quit Using Tobacco: 62; packs per day: 1; Second Hand Exposure: No; Do You Dip or Chew Tobacco: No; Hx Alcohol Use: No Hx Substance Use: No Preferred Language: Malagasy Communication Ability: Effective Visual Impairment: No Limitations Hearing Ability: Use of Hearing Aid Casting And Locker Room Servicer Required: No Beliefs That Will Affect Care: None marital status: Current Living Situation: Spouse current occupational status: retired current occupation: used to teach middle school, all subjects Feels Safe at Home: Yes Safety Concerns: Feels Safe At This Time Childhood Exposure to Second-Hand Smoke: Yes Diet: regular Dental Care, Regularly: Yes Physical Activity Frequency: 1-2 Times per Week Seatbelt Use: always Sunscreen Use: No Assistive Devices: Glasses, Hearing Aid - Left and Hearing Aid - Right Physical Exam Physical Exam: Gen: NAD, alert, interactive HEENT: Supple, no LAD, no thyromegaly, no JVD, dry mucous membranes, horizontal nystagmus Resp:Non-labored, no wheezing/rhonchi/rales, CTAB, no nasal canula use CV:RRR, normal S1/S2, no M/R/G Abd: Soft, non-distended, no TTP, normoactive bowels, no masses, no CVA tenderness Extr: 2+ dp bilaterally, no edema, moving arms and legs symmetrically Neuro: No focal neurologic deficits Skin: No rashes lesions or erythema Results & Data Results & Data Vital Signs (Past 12 Hours) Vital Signs Temp Pulse Pulse Resp BP BP Pulse Ox 01/29/24 01:00 89 20 147/92 H 92 01/29/24 00:00 91 H 24 132/84 96 01/28/24 23:27 87 L 01/28/24 22:31 96 H 29 H 103/70 94 01/28/24 21:42 92 H 27 H 95 01/28/24 21:39 88 24 119/76 95 01/28/24 21:33 89 01/28/24 21:25 36.5 C 91 H 20 149/79 H 97 O2 Del Method O2 Flow Rate 01/29/24 01:00 Nasal Cannula 2 01/29/24 00:00 Nasal Cannula 2 01/28/24 23:27 0 01/28/24 22:31 Room Air 01/28/24 21:42 Room Air 01/28/24 21:39 Room Air 01/28/24 21:33 01/28/24 21:25 Room Air Supervising Physician Co-Signing Physician Notes Attending addendum: I have physically seen this patient, have supervised the medical residents activities, and agree with the H&P unless as otherwise noted. Assessment and Plan: Acute urinary tract infection- Follow urine culture and sensitivity Continue empiric ceftriaxone 2 g IV daily begun in the ED Likely cause of metabolic encephalopathy and associated dizziness and gait instability Dizziness/unsteadiness- CT head negative, chest x-ray negative Urinalysis positive for urinary tract infection Patient is mildly dehydrated as well Out of bed to chair with assistance PT/OT assessment prior to discharge Acute kidney injury superimposed on CKD stage III- Creatinine 1.58, with baseline 1.31 Status post 2 L normal saline in the ED Continue IV fluids as noted Recheck laboratories in a.m. Remaining orders and notations as noted Resident Activity Tracking Resident Involvement: Resident Care Provided Care Provided: Adult Hospital Medicine
[2024-01-29] MEDS ORDERED: GLUCOSE 40% GEL 15 GM TUBE PO PRN (04:49)
[2024-01-29] MEDS ORDERED: DEXTROSE 50% 50 ML SYRINGE IV PRN (04:49)
[2024-01-29] MEDS ORDERED: ACETAMINOPHEN 325 MG TAB PO PRN (04:49)
[2024-01-29] MEDS ORDERED: ONDANSETRON INJ 2 MG/ML 2 ML VIAL IV PRN (04:49)
[2024-01-29] MEDS ORDERED: GLUCAGON FOR INJ 1 MG VIAL SQ PRN (04:49)
[2024-01-29] MEDS ORDERED: CARBOHYDRATES FOR HYPOGLYCEMIA PO PRN (04:49)
[2024-01-29] MEDS ORDERED: GLUCOSE 10 TAB/TUBE PO PRN (04:49)
[2024-01-29] MEDS ORDERED: MELATONIN 3 MG TAB PO PRN (04:49)
[2024-01-29] MEDS: LACTATED RINGER'S 1,000 ML IV SCH (05:15)
--- NOTE | 2024-01-29 07:22 | Hospitalist Progress Note ---
Date of Service January 29, 2024 Assessment & Plan (1) Ambulatory dysfunction: (2) Dizziness: (3) Acute UTI (urinary tract infection): (4) Acute kidney injury superimposed on chronic kidney disease: (5) Controlled type 2 diabetes with renal manifestation: (6) HTN (hypertension): (7) Hypercholesterolemia: (8) Gout: Plan 83F w/ PMH of T2DM, PACs, anxiety, chronic LBP, CKD3, HLD, and HTN who presents with concern for a near syncopal event at home. #Dizziness #Gait instability - improved - neg CT head / CXR - check orthostatic vitals, though pt did get IVF - PT / OT eval pending #UTI - UA: + LE, neg nitrite, 1+ bacteria, 21-50 WBCs - UCx pending - currently on CTX #AME on CKD III - baseline Cr: 1.3, on admission 1.58 - cont IVF - hold nephrotoxic agents - trend Cr #DM II - HA1c 7.7 (12/08/23) - hold home meds - correctional scale - monitor BG #Anxiety - cont buspirone #HTN - cont amlodipine, metoprolol - lisinopril held due to AME #HLD - statin held for AME #Chronic low back pain - prn tylenol #Gout - cont allopurinol #GERD - cont famotidine #Code: DNR/DNI #Dispo: pending improvement of renal function, UCx results Admission and Anticipated Discharge Date Admission Date: January 29, 2024 Subjective No acute events overnight Currently states sh is feeling better Review of Systems Review of Systems: Comprehensive ROS completed Physical Exam Physical Exam: Gen: no acute events overnight HEENT: normocephalic / atraumatic, anicteric, moist mucous membranes CVS: s1s2 nl, RRR, no murmurs / rubs / gallops Lungs: CTAP Abd: +bowel sounds, soft, nontender, no rebound / rigidity / guarding : no chambers Ext: no edema Neuro: awake, alert Results & Data Results & Data Vital Signs (Past 12 Hours) Vital Signs Temp Pulse Pulse Resp BP BP Pulse Ox 01/29/24 06:45 79 01/29/24 05:02 26 H 94 01/29/24 04:49 36.4 C 86 20 142/89 H 90 01/29/24 03:16 84 18 136/90 93 01/29/24 01:35 88 01/29/24 01:00 89 20 147/92 H 92 01/29/24 00:00 91 H 24 132/84 96 01/28/24 23:27 87 L 01/28/24 22:31 96 H 29 H 103/70 94 01/28/24 21:42 92 H 27 H 95 01/28/24 21:39 88 24 119/76 95 01/28/24 21:33 89 01/28/24 21:25 36.5 C 91 H 20 149/79 H 97 O2 Del Method O2 Flow Rate 01/29/24 06:45 01/29/24 05:02 Nasal Cannula 2 01/29/24 04:49 Room Air 01/29/24 03:16 Nasal Cannula 2 01/29/24 01:35 01/29/24 01:00 Nasal Cannula 2 01/29/24 00:00 Nasal Cannula 2 01/28/24 23:27 0 01/28/24 22:31 Room Air 01/28/24 21:42 Room Air 01/28/24 21:39 Room Air 01/28/24 21:33 01/28/24 21:25 Room Air Laboratory Results Abnormal lab results 01/28/24 01/28/24 Range/Units 21:36 22:30 MCHC 30.7 L (32.0-36.0) g/dL RDW Coeff of Rachid 15.0 H (11.5-14.5) % Bertie # (Auto) 0.87 H (0.11-0.59) K/uL Anion Gap 14 H (3-11) BUN 27 H (6-23) mg/dl Creatinine 1.58 H (0.6-1.2) mg/dl Glucose 132 H (70-99(Fasting)) mg/dl Total Protein 8.4 H (6.0-8.3) gm/dl Urine Appearance Cloudy A (Clear) Urine Protein Trace H (Negative) Urine Glucose (UA) 3+ H (Negative) Urine Ketones Trace H (Negative) Ur Leukocyte Esterase 2+ H (Negative) Urine WBC (Auto) 21-50 H (0-5) /hpf U Epithel Cells (Auto) 6-10 H (0-2) /hpf Urine Bacteria (Auto) 1+ H (None Seen) Diagnostic Findings Head CT 01/28/24 21:48 Exam(s): CT HEAD Without Contrast EXAM: CT Head Without Intravenous Contrast CLINICAL HISTORY: Reason for exam: dizziness; vomiting. TECHNIQUE: Axial computed tomography images of the head/brain without intravenous contrast. CTDI is 39.1 mGy and DLP is 547.75 mGy-cm. Automated exposure control was utilized for the study. A dose lowering technique was utilized adhering to the principles of ALARA. COMPARISON: No relevant prior studies available. FINDINGS: Brain: Unremarkable. No hemorrhage. Mild nonspecific white matter changes.. No edema. Ventricles: Unremarkable. No ventriculomegaly. Bones/joints: Unremarkable. No acute fracture. Soft tissues: Unremarkable. Sinuses: Unremarkable as visualized. No acute sinusitis. Mastoid air cells: Unremarkable as visualized. No mastoid effusion. IMPRESSION: No evidence of acute intracranial pathology. Electronically signed by: Margi Marcial MD 01/29/24 00:33 AM PG Care Time/CCT Total # of Minutes Spent Total Time Spent with Patient: Total time spent is greater than 50% in coordination of care (as documented) at patient's floor/unit and/or counseling patient: Coding Level of Care Code 80612 SUB INP/OBS CARE 3/50MIN Diagnoses Ambulatory dysfunction R26.2 Dizziness R42 Acute UTI (urinary tract infection) N39.0 Acute kidney injury superimposed on chronic kidney disease N17.9; N18.9 Controlled type 2 diabetes with renal manifestation E11.29 HTN (hypertension) I10 Hypercholesterolemia E78.00 Gout M10.9
--- NOTE | 2024-01-29 08:29 | XRay Report ---
XR chest 1V portable CLINICAL HISTORY: dizziness TECHNIQUE: Single frontal radiograph of the chest was obtained. Comparison: Comparison is made to chest radiograph 08/06/2013 FINDINGS: No lines and tubes are seen. Calcified aortic knob is seen. The lungs are clear. No evidence of pleur al effusion or pneumothorax. IMPRESSION: No acute chest disease. ACT 112: Negative or not required by law. Electronically signed by: Leobardo Coleman M.D. 01/29/2024 8:28 AM
[2024-01-29] MEDS: amLODIPine BESYLATE 5 MG TAB PO SCH (08:39)
[2024-01-29] MEDS: METOPROLOL SUCC 50MG EXT REL TAB PO SCH (08:40)
[2024-01-29] MEDS: busPIRone 5 MG TAB PO SCH (08:40)
[2024-01-29] MEDS: allopurinoL 100 MG TAB PO SCH (08:40)
[2024-01-29] MEDS: LANTUS PER UNIT CHARGE SQ SCH (08:43)
[2024-01-29] MEDS: INSULIN ASPART PER UNIT CHARGE SC SCH (08:44)
--- NOTE | 2024-01-29 18:20 | Billing Data ---
Date of Service January 29, 2024 Coding Level of Care Code 95046 INT INP/OBS CARE
[2024-01-29] MEDS: cefTRIAXone SODIUM 2,000 MG/50 ML BAG IV SCH (21:12)
[2024-01-29] MEDS: FAMOTIDINE 20 MG TAB PO SCH (21:13)
--- NOTE | 2024-01-30 06:05 | Electrocardiogram Report ---
Test Reason : Blood Pressure : / mmHG Vent. Rate : 093 BPM Atrial Rate : 093 BPM P-R Int : 158 ms QRS Dur : 118 ms QT Int : 398 ms P-R-T Axes : 071 058 -06 degrees QTc Int : 494 ms Sinus rhythm with Premature atrial complexes Low voltage QRS Incomplete right bundle branch block T wave abnormality, consider inferior ischemia T wave abnormality, consider anterior ischemia Abnormal ECG When compared with ECG of 06-AUG-2013 10:14, Incomplete right bundle branch block is now Present Confirmed by Billy Renee ([id number]) on 01/30/2024 6:04:51 AM Referred By: REFERRED SELF Confirmed By:Billy Renee
[2024-01-30 08:17] LABS: Hematocrit (blood only) 36.5 % (37.0-47.0); Hemoglobin 11.3 g/dl (12.0-16.0); Mean Corpuscular Hemoglobin 26.2 pg (25.0-34.0); Mean Corpuscular Volume 84.7 fL (80.0-100.0); Mean Platelet Volume 9.9 fL (9.4-12.4); Platelet Count 260 K/uL (130-400); RDW Coefficient of Variation 15.1 % (11.5-14.5); RDW Standard Deviation 46.2 fL (36.4-46.3); Red Blood Count 4.31 M/uL (4.20-5.40); White Blood Count 5.13 K/ul (4.8-10.8)
[2024-01-30 08:35] LABS: BUN Creatinine Ratio 16.1 (10-20); Calcium 9.1 mg/dl (8.6-10.3); Creatinine Clr Calc Pharmacy 31.7 ml/min; Est GFR (African American) 41.2 ml/min; Est GFR (Non-African American) 35.6 ml/min; Magnesium 2.1 mg/dl (1.7-2.4); Phosphorus 4.2 mg/dl (2.5-4.9); Potassium 4.5 mmol/L (3.5-5.1)
--- NOTE | 2024-01-30 14:00 | Hospitalist Progress Note ---
"Date of Service January 30, 2024 Assessment & Plan (1) Acute UTI (urinary tract infection): (2) Acute kidney injury superimposed on chronic kidney disease: (3) Ambulatory dysfunction: (4) Controlled type 2 diabetes with renal manifestation: (5) Hypertriglyceridemia: (6) Dizziness: (7) Chronic low back pain: (8) HTN (hypertension): (9) Gout: Kyaw Hansen is an 83F w/ PMH of T2DM, PACs, anxiety, chronic LBP, CKD3, HLD, and HTN who presents with concern for a near syncopal event at home. Dizziness/Unsteadiness - Negative CT Head, Negative CXR - Ddx includes dehydration, UTI, vertigo - CBC & electrolytes unremarkable - Hemodynamically stable - Suspect 2/2 dehydration -Now resolved Urinary Tract Infection - Abnormal Urinalysis w/ increased urinary frequency and diaphoresis/subjective fevers - Urine culture pending - Continue Ceftriaxone AME on CKD3 | Dehydration -Some improvement following IV rehydration - Hold nephrotoxic medications - Trend BMP Gait Instability - Acute - PT/OT ordered,Therapy recommends return to home Chronic Conditions: - T2DM - Home medications held, SSI inpatient w/ ACHS checks - Anxiety - Continue home medication - Chronic LBP - Tylenol PRN - HLD - Statin held for AME - HTN - Continue Amlodipine and Metoprolol, ACEI/ARB held for AME - Gout - continue home medication Code: DNR/DNI Diet: DM2 IVFs: 1.5 x mIVF Dispo: Hopefully discharge in next 24 hours Admission and Anticipated Discharge Date Admission Date: January 29, 2024 Subjective Patient seen and examined, said her dizziness is resolved. this morning participated in physical therapy Review of Systems Review of Systems: All systems reviewed are negative, apart from the ones contained in the history. Physical Exam Physical Exam: The patient is awake, alert and oriented 3, well developed and well nourished, normocephalic and atraumatic, lying in bed and in no acute distress. HEENT--PERRL, EOMI, mucous membranes and oropharynx mildly dry Neck--supple. No JVD. No bruits. Thyroid normal, trachea midline, no adenopathy. Heart--normal S1 and S2. No murmurs, rubs or gallops. Lungs--clear bilaterally, no respiratory distress, no accessory muscle use. Abdomen--normal bowel sounds and soft. Extremities--no cyanosis or clubbing. No edema. Dermatologic--normal skin turgor, normal color, no abnormal lymph nodes, no rash. Neurologic--cranial nerves II through XII grossly intact. Rheumatologic--normal range of motion. Psychiatric--normal affect. Results & Data Results & Data Vital Signs (Past 12 Hours) Vital Signs Temp Pulse Resp BP BP Pulse Ox O2 Del Method 01/30/24 11:54 97.5 F L 71 18 117/73 92 Room Air 01/30/24 07:48 97.7 F 84 18 137/82 93 Room Air 01/30/24 04:29 98.1 F 81 18 122/77 97 Nasal Cannula O2 Flow Rate 01/30/24 11:54 01/30/24 07:48 01/30/24 04:29 2 PG Care Time/CCT Total # of Minutes Spent Total Time Spent with Patient: Total time spent is greater than 50% in coordination of care (as documented) at patient's floor/unit and/or counseling patient: Coding Level of Care Code 08152 SUB INP/OBS CARE 2/35MIN Diagnoses Acute UTI (urinary tract infection) N39.0 Acute kidney injury superimposed on chronic kidney disease N17.9; N18.9 Ambulatory dysfunction R26.2 Controlled type 2 diabetes with renal manifestation E11.29 Hypertriglyceridemia E78.1 Dizziness R42 Chronic low back pain M54.50; G89.29 HTN (hypertension) I10 Gout M10.9 Time Spent (min) 35"
[2024-01-31 06:49] LABS: Hemoglobin 10.7 g/dl (12.0-16.0); Mean Corpuscular Hemoglobin 25.9 pg (25.0-34.0); Mean Corpuscular Hgb Conc 30.6 g/dL (32.0-36.0); Mean Corpuscular Volume 84.7 fL (80.0-100.0); Mean Platelet Volume 10.1 fL (9.4-12.4); Platelet Count 254 K/uL (130-400); RDW Coefficient of Variation 15.2 % (11.5-14.5); RDW Standard Deviation 46.2 fL (36.4-46.3); Red Blood Count 4.13 M/uL (4.20-5.40); White Blood Count 5.72 K/ul (4.8-10.8)
[2024-01-31 07:20] LABS: BUN Creatinine Ratio 19.6 (10-20); Calcium 8.9 mg/dl (8.6-10.3); Creatinine Clr Calc Pharmacy 30.8 ml/min; Est GFR (African American) 39.2 ml/min; Est GFR (Non-African American) 33.8 ml/min; Magnesium 2.1 mg/dl (1.7-2.4); Potassium 4.3 mmol/L (3.5-5.1)
--- NOTE | 2024-01-31 12:41 | Discharge Summary ---
Date of Service January 31, 2024 Admission HPI Per Admitting Provider Jade is an 83F w/ PMH of T2DM, PACs, anxiety, chronic LBP, CKD3, HLD, and HTN who presents with concern for a near syncopal event at home. ED Course: 2L NSS, Compazine, Zofran, Ceftriaxone HPI: Starting today, patient has been feeling dizzy and unsteady w/ episodes of sweating profusely. Had an episode around lunch, took a nap and it resolved w/o additional intervention. Around 830 PM symptoms returned and were unrelenting so she presented to ED. Hx of vertigo, this felt similar, but past episodes were always triggered by laying flat and looking straight up. No preceding symptoms (headaches, nausea, chest pain, dyspnea) Urinating regularly, no dysuria or suprapubic pressure. Does endorse increased night time urinary frequency. All prior UTIs have had hematuria and dysuria. Notes that she has been having more hot flashes when she goes back to bed at night. No medication changes, on room air at home, independent with all ADLs. Now endorsing unsteadiness when walking to bathroom. Notes she has continued to eat meals TID w/ occasional snacks and hydrating well (6-8 8 ounce glasses water daily) Principal Diagnosis UTI Discharge Exam The patient is awake, alert and oriented 3, well developed and well nourished, normocephalic and atraumatic, lying in bed and in no acute distress. HEENT--PERRL, EOMI, mucous membranes and oropharynx mildly dry Neck--supple. No JVD. No bruits. Thyroid normal, trachea midline, no adenopathy. Heart--normal S1 and S2. No murmurs, rubs or gallops. Lungs--clear bilaterally, no respiratory distress, no accessory muscle use. Abdomen--normal bowel sounds and soft. Extremities--no cyanosis or clubbing. No edema. Dermatologic--normal skin turgor, normal color, no abnormal lymph nodes, no rash. Neurologic--cranial nerves II through XII grossly intact. Rheumatologic--normal range of motion. Psychiatric--normal affect. Discharge Data Allergies Allergy/AdvReac Type Severity Reaction Status Date / Time No Known Allergies Allergy Verified 09/02/23 14:35 Consultations 01/29/24 00:59 ED Decision to Admit Stat Ordered Studies 01/28/24 21:48 CT head/brain wo con Stat Hospital Course (1) Acute UTI (urinary tract infection): (2) Acute kidney injury superimposed on chronic kidney disease: (3) Ambulatory dysfunction: (4) Controlled type 2 diabetes with renal manifestation: (5) Hypertriglyceridemia: (6) Dizziness: (7) Chronic low back pain: (8) HTN (hypertension): (9) Gout: Kyaw Hansen is an 83F w/ PMH of T2DM, PACs, anxiety, chronic LBP, CKD3, HLD, and HTN who presents with concern for a near syncopal event at home. Dizziness/Unsteadiness - Negative CT Head, Negative CXR - Ddx includes dehydration, UTI, vertigo - CBC & electrolytes unremarkable - Hemodynamically stable - Suspect 2/2 dehydration -Now resolved Urinary Tract Infection - Abnormal Urinalysis w/ increased urinary frequency and diaphoresis/subjective fevers - Urine culture negative - Continue Ceftriaxone -D/C home on PO Cephalexin 250mg BID for 5 days AME on CKD3 | Dehydration -Some improvement following IV rehydration - Hold nephrotoxic medications - Trend BMP Gait Instability - Acute - PT/OT ordered,Therapy recommends return to home Chronic Conditions: - T2DM - Home medications held, SSI inpatient w/ ACHS checks - Anxiety - Continue home medication - Chronic LBP - Tylenol PRN - HLD - Statin held for AME - HTN - Continue Amlodipine and Metoprolol, ACEI/ARB held for AME - Gout - continue home medication Code: DNR/DNI Diet: DM2 IVFs: 1.5 x mIVF Dispo: Hopefully discharge in next 24 hours Total Time Total Time Spent Total Time Spent (In Minutes): 35 Discharge Plan Discharge Items Patient Disposition: Home - Self-Care Reason For Visit: NEAR SYNCOPE, UTI Discharge Diagnosis: UTI Activity: Resume your previous activity Non-emergency contact: Primary Care Provider Call non-emergency contact if: you have any medication questions Follow-up/Referrals: Krystal Jung MD [Primary Care Provider] - Diet: Regular Addtl Attending Provider Instructions: Please make appointment to follow-up with her regular PCP Pending Studies at Discharge: No Stand-Alone Forms: My [employer], Smoking Cessation Medications and DC Order Prescriptions: New cephalexin 250 mg capsule 250 mg PO BID 5 Days Qty: 10 0RF Continued metformin 1,000 mg tablet 1,000 mg PO BID Qty: 180 3RF (DME) OneTouch Ultra Test Strip See Rx Instructions .Route Qty: 100 5RF Rx Instructions: Test daily metoprolol succinate 50 mg tablet extended release 24 hr 50 mg PO BID Qty: 180 3RF lisinopril 40 mg tablet 40 mg PO QAM Qty: 90 3RF Jardiance 25 mg tablet 25 mg PO QAM 90 Days Qty: 90 4RF allopurinol 100 mg tablet 50 mg PO DAILY 90 Days Qty: 45 2RF Rx Instructions: take with a meal insulin glargine [Lantus Solostar U-100 Insulin] 100 unit/mL (3 mL) insulin pen 54 unit SQ QAM Qty: 15 3RF Rx Instructions: 54 units subcut daily; (DME) pen needle, diabetic 31 gauge x 3/16" needle See Dose Instructions .ROUTE .MEDSUPPLY Qty: 100 5RF Rx Instructions: As directed- TWICE DAILY buspirone 5 mg tablet 5 mg PO TID Qty: 270 1RF simvastatin 10 mg tablet 10 mg PO QPM Qty: 90 3RF cholecalciferol (vitamin D3) 25 mcg (1,000 unit) capsule 25 mcg PO QAM TDVAX 2-2 Lf unit/0.5 mL suspension 0.5 ml IM ONCE Qty: 0.5 0RF Rx Instructions: please administer; okay to sub for tdap tizanidine 4 mg tablet 2 mg PO BID PRN (Reason: muscle spasticity) Qty: 30 1RF Rx Instructions: 1 or 2 pills twice a day for spasm and muscle tightness cranberry extract 250 mg capsule 250 mg PO QAM Rx Instructions: administer with a meal famotidine 20 mg tablet 20 mg PO QPM amlodipine 5 mg tablet 5 mg PO DAILY acarbose 25 mg tablet 25 mg PO UD Rx Instructions: take after each meal 3 times a day (when trulicity is unavailable) Trulicity 1.5 mg/0.5 mL pen injector 1.5 mg SUBCUT WK Discharge Orders: Discharge Order (Routine); Ordered 01/31/24 Ordered By: Parth Moya Admission Data Admit Date/Time: 01/29/24 02:35 Attending Provider: Parth Moya Admit Provider: Aziza Boone Primary Care Provider: Krystal Jung Other Providers: Daryl Rivera Coding Level of Care Code 30661 INP/OBS DISCH >30 MIN Diagnoses Acute UTI (urinary tract infection) N39.0 Acute kidney injury superimposed on chronic kidney disease N17.9; N18.9 Ambulatory dysfunction R26.2 Controlled type 2 diabetes with renal manifestation E11.29 Hypertriglyceridemia E78.1 Dizziness R42 Chronic low back pain M54.50; G89.29 HTN (hypertension) I10 Gout M10.9 Time Spent (min) 35
== END 2024-01-31 13:24 | disposition home or self-care (01) | DRG 690 ==
LOC: ED 21:14 → SUATTDRO 01-29 02:35 → 2E 01-29 02:35 → 2W 01-29 19:58

== ENCOUNTER 2024-07-11 05:59 | Inpatient (IN) ==
--- NOTE | 2024-07-03 15:14 | Anesthesiology Consultation ---
Date of Service July 03, 2024 Assessment & Plan (1) Encounter for pre-operative examination: - check BSG am DOS. - PCP office visit 06/13/24 [place]: "...Preadmission labs, EKG and CXR were reviewed and acceptable. Patient is as medically optimized as possible for this moderate risk surgery. Proceed at discretion of surgeon and anesthesia..." - dulaglutide instructions: Patient informed by PAT RN to stop 7 days prior to surgery. - Per filling room operator on 07/03/24: No known infectious disease contacts, current infectious disease symptoms in past 10 days or COVID positive test result in the past 30 days. Chart Review Chart Review: Acceptable Risk for Surgery and Patient NOT seen in Pre Admission Testing History Surgery Operation Date: 07/11/24 07:00 Proposed Procedures p Robotic Assisted Partial Colectomy, Possible Open - Yan Wilson DO, FACS Height/Weight Height: 5 ft 2 in Weight: 83.915 kg Allergies Allergy/AdvReac Type Severity Reaction Status Date / Time No Known Allergies Allergy Verified 07/03/24 14:27 Medications Home Medications Medication Instructions Recorded Confirmed Last Taken cholecalciferol (vitamin D3) 25 25 mcg PO QPM 01/02/20 07/03/24 05/06/24 mcg (1,000 unit) capsule cranberry extract 250 mg capsule 250 mg PO QAM 10/20/22 07/03/24 05/06/24 famotidine 20 mg tablet 20 mg PO QPM 10/20/22 07/03/24 05/06/24 lisinopril 40 mg tablet 40 mg PO QAM #90 tabs 06/30/23 07/03/24 05/07/24 07:00 empagliflozin 25 mg tablet 25 mg PO QAM 90 days #90 tabs 08/04/23 07/03/24 05/06/24 (Jardiance) buspirone 5 mg tablet 5 mg PO TID #270 tabs 01/10/24 07/03/24 05/07/24 07:00 simvastatin 10 mg tablet 10 mg PO QPM #90 tabs 01/10/24 07/03/24 05/06/24 amlodipine 5 mg tablet 5 mg PO QAM 01/29/24 07/03/24 05/07/24 07:00 pen needle, diabetic 31 gauge x 03/16/24 06/13/24 Unknown 3" metformin 1,000 mg tablet 1,000 mg PO BID #180 tabs 03/22/24 07/03/24 05/06/24 metoprolol succinate 50 mg 50 mg PO BID #180 tabs 03/22/24 07/03/24 05/07/24 07:00 tablet,extended release 24 hr blood sugar diagnostic (OneTouch #100 ea 04/09/24 06/13/24 Unknown Ultra Test strips) allopurinol 100 mg tablet 100 mg PO QPM 04/25/24 07/03/24 05/06/24 ferrous sulfate 325 mg (65 mg 325 mg PO DAILY 05/21/24 07/03/24 Unknown iron) tablet (FeroSul) insulin glargine 100 unit/mL (3 54 unit (0.54 mL) subcut QAM #15 mL 06/26/24 07/03/24 Unknown mL) subcutaneous pen (Lantus Solostar U-100 Insulin) dulaglutide 1.5 mg/0.5 mL 1.5 mg subcut WK 07/03/24 07/03/24 06/27/24 subcutaneous pen injector (Trulicity) lorazepam 1 mg tablet 0.5 mg PO UD PRN vertigo 07/03/24 07/03/24 Unknown meclizine 25 mg tablet 25 mg PO UD PRN motion sickness 07/03/24 07/03/24 Unknown metronidazole 500 mg tablet 500 mg PO UD 07/03/24 07/03/24 Unknown neomycin 500 mg tablet 500 mg PO UD pre-op 07/03/24 07/03/24 Unknown Past Medical History Medical History (Updated 07/03/24 @ 15:09 by Imelda Betancourt PA-C) Ambulatory dysfunction no WC or walker - slow to ambulate. Anemia Anxiety hx of situational anxiety - taking buspirone from 10 years ago Arthritis Atrial premature complex no cards Colon cancer dx apr 2024 Diabetes mellitus, type 2 IDDM GERD (gastroesophageal reflux disease) History of gout HTN (hypertension) Hyperlipidemia Stage III chronic kidney disease no specialist Thyroid nodule monitoring. Vertigo triggered by laying supine. Past Family History Family History Father Cardiac disorder Myocardial infarction Mother Diabetes Cardiac disorder Hypertension Grandmother (Paternal) Breast cancer Other No family history of adverse response to anesthesia Denies family history of Ovarian cancer Prostate cancer Colorectal cancer Past Surgical History Surgical History History of cataract surgery bilat History of colonoscopy History of tubal ligation Social History Smoking Status: Former smoker tobacco type: cigarettes Smoking cigarettes per day: smoked 40 years Do You Dip or Chew Tobacco: No Smoking End Date: 2001 Hx Alcohol Use: Yes alcohol intake frequency: holidays/special occasions only Hx Substance Use: No substance use type: does not use Lab Results Anesthesia Preop Results Results Anesthesia Widget: WBC 7.39 K/ul (4.8-10.8) 06/13/24 Hgb 12.0 g/dl (12.0-16.0) 06/13/24 Hct 38.3 % (37.0-47.0) 06/13/24 Plt 276 K/uL (130-400) 06/13/24 Na 139 mmol/L (136-145) 06/13/24 K 4.4 mmol/L (3.5-5.1) 06/13/24 Cl 106 mmol/L (98-107) 06/13/24 CO2 22 mmol/L (21-32) 06/13/24 BUN 20 mg/dl (6-23) 06/13/24 Creat 1.12 mg/dl (0.6-1.2) 06/13/24 Glucose Level 122 mg/dl (70-99(Fasting)) H 06/13/24 PT 11.2 Seconds (9.0-12.0) 05/07/24 INR 1.0 (0.9-1.1) 05/07/24 HA1c 6.3 % (4.5-5.6) H 05/07/24 Testing Electrocardiogram Date: 06/25/24 Sinus rhythm with PACs, rate 82 bpm RBBB Chest X-Ray Date: 06/25/24 No acute cardiopulmonary disease. Echocardiogram Date: 04/10/24 EF 60-65% No LV regional wall motion abnormalities mild cLVH Mild tricuspid regurgitation Grade II diastolic dysfunction Other Testing Chest CT 05/10/24 1. Mild atelectasis with air trapping. 2. No pleural effusion or airspace consolidation typical for pneumonia. 3. Mild aneurysmal dilation of the ascending thoracic aorta, 4 cm. 4. Extensive coronary artery calcifications. Abdomen pelvis CT 05/10/24 There is wall thickening, fat stranding, and adjacent lymph nodes about the transverse colon. Findings are concerning for local metastatic disease in this patient with prominent polyps found on colonoscopy in the transverse colon. Findings can be further evaluated with PET/CT. 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 A 2.2 cm right lower pole nodule is indeterminate but low suspicion. A follow-up thyroid ultrasound in one year to ensure stability is recommended. Head and neck CTA 01/24/24 1. No acute intracranial hemorrhage, evidence of acute territorial infarction, or other acute intracranial disease process. 2. No occlusion, hemodynamically significant stenosis, or dissection in the major cervical arteries. 3. No occlusion, hemodynamically significant stenosis, dissection, or arteriovenous malformation in the major intracranial arteries. 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 4. Thyroid nodules are seen. If not previously evaluated, nonemergent ultrasound can be performed.
--- NOTE | 2024-07-10 08:00 | History & Physical Report ---
Date of Service July 10, 2024 Assessment & Plan (1) Primary adenocarcinoma of transverse colon: Plan: 84-year-old female with distal transverse colon adenocarcinoma with suspected lymph node involvement, no distant metastasis. She does have microsatellite instability on her initial pathology with further test pending. However, at her age I find it unlikely that she would have Zamorano syndrome, and I do not think it would alter our plan of care as I do not think she is a candidate for total abdominal colectomy. We will discuss her at tumor board. 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 Initially referred for evaluation of newly diagnosed colon cancer. No family history. She had been having regular colonoscopies until age 70. She was admitted to the hospital for some lightheadedness and was noted to be mildly anemic. Her PCP ordered an fecal occult blood test which was positive. She then underwent colonoscopy which showed a malignant appearing mass in the distal transverse colon which was biopsied and tattooed. She had multiple other polyps throughout her colon. Pathology showed invasive adenocarcinoma and microsatellite instability. No prior abdominal surgeries, denies any melena or hematochezia. She has had some abdominal cramping over the past few weeks, but other fernandez no GI symptoms. She is on multiple medications for her diabetes including insulin, however her last A1c was 6.3. She does not follow with a outboard motor tester and has no history of coronary artery disease. She is a former smoker. She lives at home with her . No changes since last visit. Allergies Allergy/AdvReac Type Severity Reaction Status Date / Time No Known Allergies Allergy Verified 07/03/24 14:27 Home Medications Medication Instructions Recorded Confirmed Type cholecalciferol (vitamin D3) 25 25 mcg PO QPM 01/02/20 07/03/24 History mcg (1,000 unit) capsule cranberry extract 250 mg capsule 250 mg PO QAM 10/20/22 07/03/24 History famotidine 20 mg tablet 20 mg PO QPM 10/20/22 07/03/24 History lisinopril 40 mg tablet 40 mg PO QAM #90 tabs 06/30/23 07/03/24 Rx empagliflozin 25 mg tablet 25 mg PO QAM 90 days #90 tabs 08/04/23 07/03/24 Rx (Jardiance) buspirone 5 mg tablet 5 mg PO TID #270 tabs 01/10/24 07/03/24 Rx simvastatin 10 mg tablet 10 mg PO QPM #90 tabs 01/10/24 07/03/24 Rx amlodipine 5 mg tablet 5 mg PO QAM 01/29/24 07/03/24 History pen needle, diabetic 31 gauge x 03/16/24 06/13/24 History 3/16" metformin 1,000 mg tablet 1,000 mg PO BID #180 tabs 03/22/24 07/03/24 Rx metoprolol succinate 50 mg 50 mg PO BID #180 tabs 03/22/24 07/03/24 Rx tablet,extended release 24 hr blood sugar diagnostic (OneTouch #100 ea 04/09/24 06/13/24 Rx Ultra Test strips) allopurinol 100 mg tablet 100 mg PO QPM 04/25/24 07/03/24 History ferrous sulfate 325 mg (65 mg 325 mg PO DAILY 05/21/24 07/03/24 History iron) tablet (FeroSul) insulin glargine 100 unit/mL (3 54 unit (0.54 mL) subcut QAM #15 mL 06/26/24 07/03/24 Rx mL) subcutaneous pen (Lantus Solostar U-100 Insulin) dulaglutide 1.5 mg/0.5 mL 1.5 mg subcut WK 07/03/24 07/03/24 History subcutaneous pen injector (Trulicity) lorazepam 1 mg tablet 0.5 mg PO UD PRN vertigo 07/03/24 07/03/24 History meclizine 25 mg tablet 25 mg PO UD PRN motion sickness 07/03/24 07/03/24 History metronidazole 500 mg tablet 500 mg PO UD 07/03/24 07/03/24 History neomycin 500 mg tablet 500 mg PO UD pre-op 07/03/24 07/03/24 History Past Med/Surg History Problem List (Updated 07/03/24 @ 15:09 by Imelda Betancourt PA-C) Encounter for pre-operative examination Primary adenocarcinoma of transverse colon Anemia Mild tricuspid regurgitation Thyroid nodule Ambulatory dysfunction (Acute) Hypertriglyceridemia Gout Chronic low back pain Stage III chronic kidney disease Anxiety disorder due to medical condition (Acute) Arthritis (Acute) Atrial premature complex (Acute) Controlled type 2 diabetes with renal manifestation (Acute) Hearing loss (Acute) Obesity (Acute) HTN (hypertension) (Chronic) Medical History Ambulatory dysfunction no WC or walker - slow to ambulate. Anemia Anxiety hx of situational anxiety - taking buspirone from 10 years ago Arthritis Atrial premature complex no cards Colon cancer dx apr 2024 Diabetes mellitus, type 2 IDDM GERD (gastroesophageal reflux disease) History of gout HTN (hypertension) Hyperlipidemia Stage III chronic kidney disease no specialist Thyroid nodule monitoring. Vertigo triggered by laying supine. Surgical History History of cataract surgery bilat History of colonoscopy History of tubal ligation Family History Father Cardiac disorder Myocardial infarction Mother Diabetes Cardiac disorder Hypertension Grandmother (Paternal) Breast cancer Other No family history of adverse response to anesthesia Denies family history of Ovarian cancer Prostate cancer Colorectal cancer Social History Smoking Status: Former smoker Tobacco Type: Cigarettes Age Started Using Tobacco: 16; Age Quit Using Tobacco: 62; packs per day: 1; Cigarettes Per Day: smoked 40 years; Second Hand Exposure: No; Do You Dip or Chew Tobacco: No; Hx Alcohol Use: Yes Hx Substance Use: No Preferred Language: Burkinan Communication Ability: Effective Visual Impairment: No Limitations Hearing Ability: Use of Hearing Aid Shift Lab Technician Required: No Beliefs That Will Affect Care: None marital status: Current Living Situation: Spouse current occupational status: retired current occupation: used to teach middle school, all subjects How many Children do You have: 1 Feels Safe at Home: Yes Childhood Exposure to Second-Hand Smoke: Yes Diet: regular caffeine: No during the past year weight has: decreased > 10 lbs Dental Care, Regularly: Yes Physical Activity Frequency: 1-2 Times per Week Seatbelt Use: always Sunscreen Use: No Assistive Devices: Glasses and Hearing Aid - Bilateral Review of Systems Review of Systems: All systems reviewed & are unremarkable except as noted in HPI & below Physical Exam Constitutional: WD/WN, vitals as above + obese Respiratory: normal respiratory effort, lungs clear to auscultation Cardiovascular: RRR, no murmur, no edema Gastrointestinal (Abdomen): normal bowel sounds, soft, nontender, no hepatosplenomegaly Percussion/Palpation: + hernia (Small umbilical hernia) Results & Data Results & Data Diagnostic Findings Lab Interpretation: CEA 6.6 A1c 6.3 Clinical History Anemia. Procedure performed: Colonoscopy. FINAL DIAGNOSIS A. Colon, ascending polyps, polypectomy: - Tubular adenomas, multiple fragments B. Colon, transverse polyps, polypectomy: - Sessile serrated adenomas, multiple fragments - Tubular adenomas, multiple fragments C. Colon, sigmoid polyp, polypectomy: - Tubular adenoma D. Colon, mass, biopsy: - Invasive adenocarcinoma - MSI- high Comment: MLH1 promotor methylation and BRAF V600E mutation analysis are being performed on the mass and will be reported separately. at 1024. Gross Description A. ASCENDING POLYPS The specimen is received in a container labeled ascending colon polyps with the patient name. The specimen consists of multiple pink, nickerson and red irregular to polypoid fragments of soft to rubbery tissue. The fragments range from 0.1 x 0.1 x 0.1 to 1.2 x 0.3 x 0.2 cm. The specimen is submitted entirely in a single cassette as A for levels. B. TRANSVERSE POLYPS The specimen is received in a container labeled transverse colon polyps with the patient name. The specimen consists of 6 pink and red irregular fragments of soft tissue. The fragments range from 0.2 to 0.5 cm in greatest dimension. The specimen is submitted entirely in a single cassette as B for levels. C. SIGMOID POLYP The specimen is received in a container labeled rectal colon polyps (confirmed to be rectal via the operative report) with the patient name. The specimen consists of 2 pink and nickerson polyps. The polyps measure 0.4 and 0.5 cm in greatest dimension. The specimen is submitted entirely in a single cassette as C for levels. Surgical Pathology Report Page 1 of 2 [facility] Surgical Pathology Report Name: KASSANDRA WARNER : 1940 Case #: [id number] Continued D. COLON MASS BIOPSY The specimen is received in a container labeled colon mass BX with the patient name. The specimen consists of multiple pink and red irregular fragments of soft tissue. The fragments range from 0.1 to 0.3 cm in greatest dimension. The specimen is submitted entirely in a single cassette as D for levels. AH Microscopic Description D. P53: patchy positive staining (wild-type) D. Immunohistochemistry (IHC) Testing for Mismatch Repair (MMR) Proteins: MLH1: Loss of nuclear expression MSH2: Intact nuclear expression MSH6: Intact nuclear expression PMS2: Loss of nuclear expression IHC Interpretation: Loss of nuclear expression of MLH1 and PMS2: testing for methylation of the MLH1 promoter and/or mutation of BRAF is indicated (the presence of a BRAF V600E mutation and/or MLH1 methylation suggests that the tumor is sporadic and germline evaluation is probably not indicated; absence of both MLH1 methylation and of BRAF V600E mutation suggests the possibility of Zamorano syndrome, and sequencing and/or large deletion/duplication testing of germline MLH1 may be indicated). Microsatellite Instability (MSI): MSI High (MSI-H) Current Procedural Terminology A. 37189m9 B. 50869h1 C. 43772m2 D. 76014z4, 20289v1, 99169m4 Surgical Pathology Report CT Interpretation: CT scans of the chest, abdomen, and pelvis were personally viewed and interpreted and agree with the assessment of thickening of the distal transverse colon with some mesenteric lymphadenopathy concerning for malignancy with lymphatic involvement. No obvious distant metastatic disease on imaging. CT abd pelvis oral and IV con CLINICAL HISTORY: K63.89 - Other specified diseases of intestine TECHNIQUE: Helical axial images of the abdomen and pelvis were obtained and displayed. Automated dose lowering techniques and/or adjustment according to patient size were utilized for this exam. This exam was performed with intravenous contrast. COMPARISON: Comparison is made to CT abdomen pelvis 01/30/2017 FINDINGS: Lower chest: No acute abnormality. Liver: Unremarkable. No focal lesions are seen. Gallbladder and biliary tree: No calcified gallstones. Normal caliber wall. No intra- or extrahepatic biliary ductal dilation. Pancreas: Unremarkable, no focal lesions. Spleen: Unremarkable. Adrenals: Unremarkable. Kidneys and ureters: 17 x 15 mm hypodense nodule in the right kidney upper pole measuring greater than simple fluid density. Bladder: Unremarkable. Reproductive organs: Incidental note is made of calcified fibroid. Bowel: Diverticulosis is seen without diverticulitis. The appendix is normal. There is thickening of the transverse colon with adjacent fat stranding and approximately 7 mm adjacent lymph node. Lymph nodes Retroperitoneal: Unremarkable. Pelvic: Unremarkable. Mesenteric: Subcentimeter lymph nodes are noted. Peritoneum: Normal. Vessels: Atherosclerotic calcifications are seen. Abdominal wall: A fat-containing umbilical hernia is seen. Bones: Degenerative changes in the visualized spine. IMPRESSION: There is wall thickening, fat stranding, and adjacent lymph nodes about the transverse colon. Findings are concerning for local metastatic disease in this patient with prominent polyps found on colonoscopy in the transverse colon. Findings can be further evaluated with PET/CT. HEST CT WITH CONTRAST CT DOSE: 2967.67 mGy.cm HISTORY: Acute shortness of breath K63.89 - Other specified diseases of intestine TECHNIQUE: Multiaxial CT images of the chest were performed following the IV administration of 90 cc of Optiray. A dose lowering technique was utilized adhering to the principles of ALARA. COMPARISON: CT abdomen and pelvis of same day FINDINGS: 1.5 cm peripherally calcified right-sided thyroid nodule. No pathologically enlarged lymph nodes. Mild cardiomegaly with extensive coronary artery calcifications. Atherosclerosis of the aorta with mild fusiform dilation of the ascending aorta measuring 4 cm. Unremarkable pulmonary artery. No pneumothorax, pleural effusion or pulmonary edema. Mild air trapping with atelectasis of the lungs. Central airways are patent. CT abdomen and pelvis we dictated separately. Posterior disc osteophyte complex relation to the lower thoracic spine. No acute fracture identified. IMPRESSION: 1. Mild atelectasis with air trapping. 2. No pleural effusion or airspace consolidation typical for pneumonia. 3. Mild aneurysmal dilation of the ascending thoracic aorta, 4 cm. 4. Extensive coronary artery calcifications. PG Care Time/CCT Total # of Minutes Spent Total Time Spent with Patient: Total time spent is greater than 50% in coordination of care (as documented) at patient's floor/unit and/or counseling patient: Coding Level of Care Code None Diagnoses Primary adenocarcinoma of transverse colon C18.4 HTN (hypertension) I10 Controlled type 2 diabetes with renal manifestation E11.29 Stage III chronic kidney disease N18.3 Anemia D64.9
[2024-07-11] MEDS ORDERED: ceFAZolin 2000MG 2,000 MG/15 ML SYR IV SCH (06:00)
[2024-07-11] MEDS: LR 15ML/HR IV SCH (06:30)
[2024-07-11] MEDS ORDERED: PROPOFOL IV EMULSION 10 MG/ML 20 ML VIAL IV ONE (06:31)
[2024-07-11] MEDS ORDERED: ROCURONIUM BROMIDE 10 MG/ML 5 ML VIAL IV ONE (06:31)
[2024-07-11] MEDS ORDERED: fentaNYL citrate PF 100 MCG/2 ML VIAL ONE ×4 (06:32→11:44)
--- NOTE | 2024-07-11 07:31 | History & Physical Bridge Note ---
Date of Service July 11, 2024 History & Physical Bridge Note I have examined the patient, reviewed the History & Physical and in the interval since the performance of the History & Physical I have noted the following changes of clinical significance: no changes noted
[2024-07-11] MEDS: cefOXitin 2,000 MG in DEXTROSE 5 % MINI-B 50 ML IV ONE (07:45)
[2024-07-11] MEDS ORDERED: ePHEDrine sulfate 50 MG/ML AMP ONE ×2 (07:59→10:53)
[2024-07-11] MEDS ORDERED: PHENYLEPHRINE 100MCG/ML 5ML SYR ONE (08:06)
[2024-07-11] MEDS ORDERED: DEXAMETHASONE SOD INJ 4 MG/ML VIAL ONE (08:06)
[2024-07-11] MEDS ORDERED: ONDANSETRON INJ 2 MG/ML 2 ML VIAL ONE (08:06)
[2024-07-11] MEDS ORDERED: SUGAMMADEX SODIUM 200 MG/2 ML VIAL IV ONE (09:52)
[2024-07-11] MEDS: BUPIVACAINE 0.5 % 5 MG/1 ML MPF 30ML VIAL ONE (11:30)
--- NOTE | 2024-07-11 11:59 | Post Operative Brief Note ---
PG Immediate Post Op with CF Date of Surgery July 11, 2024 Pre & Post Diagnosis Operation Date: 07/11/24 07:30 Pre-Op Diagnosis: Primary Adenocarcinoma or Transverse Colon Post-Op Diagnosis: Primary Adenocarcinoma or Transverse Colon I identified the patient and participated in the time-out.: Yes Procedure Operation Date: 07/11/24 07:30 Actual Procedures p Robotic Assisted transverse colectomy, mobilization of splenic and hepatic flexures, intracorporeal anastomosis (Not Applicable) - Yan Wilson DO, FACS Surgeon Yan Wilson DO, LU Public Defender Lyubov Rodriguez Estimated Blood Loss 20 Findings Consistent with Post-Op Diagnosis Proximal distal tattoo holliday present in mid transverse colon. Significant redundant colon. Tumor palpable. Mobilization of splenic flexure and hepatic flexure. Transverse colectomy performed, ligation of middle colic. Intracorporeal anastomosis performed with [id number] functional end-to-end anastomosis. ICG showed good flow to flow. No evidence of leak. Specimens Specimen Description: a) Transverse colectomy. Drains Chambers Catheter (chambers 16fr inserted by aMria Victoria Rodriguez without difficulty on sterile field)
[2024-07-11] MEDS ORDERED: HYDROmorphone INJ 1 MG/ML SYRINGE IV PRN (12:04)
[2024-07-11] MEDS ORDERED: fentaNYL citrate PF 100 MCG/2 ML VIAL IV PRN (12:04)
[2024-07-11] MEDS ORDERED: ATROPINE SULFATE 0.1 MG/ML 10ML SYR IV PRN (12:11)
[2024-07-11] MEDS ORDERED: ePHEDrine sulfate 50 MG/ML AMP IV PRN (12:11)
[2024-07-11] MEDS: ONDANSETRON INJ 2 MG/ML 2 ML VIAL IV PRN (12:16)
[2024-07-11] MEDS: NovoLIN-R INSULIN PER UNIT CHARGE ONE ×3 (12:19→16:12)
--- NOTE | 2024-07-11 12:29 | Operative Report ---
PG Post Operative Report Pre & Post Diagnosis Operation Date: 07/11/24 07:30 Pre-Op Diagnosis: Primary Adenocarcinoma or Transverse Colon Post-Op Diagnosis: Primary Adenocarcinoma or Transverse Colon I identified the patient and participated in the time-out.: Yes Procedure Operation Date: 07/11/24 07:30 Actual Procedures p Robotic Assisted transverse Colectomy, robotic mobilization of splenic flexure and hepatic flexure, intracorporeal anastomosis- Yan Wilson DO, LU Surgeon Yan Wilson DO, LU Farm Equipment Mechanic Lyubov Hernandez Estimated Blood Loss 20 Findings Consistent with Post-Op Diagnosis Proximal distal and tattoo holliday present in mid transverse colon. Significant redundant colon. Tumor palpable. Mobilization of splenic flexure and hepatic flexure. Transverse colectomy performed, ligation of middle colic. Intracorporeal anastomosis performed with [id number] functional end-to-end anastomosis. ICG showed good flow to flow. No evidence of leak. Specimens Transverse colon Anesthesia Type General Complications none Disposition Accompanied Patient To Recovery: No Disposition: Recovery Room Indications 84-year-old female with adenocarcinoma of the transverse colon, plan for robotic partial colectomy, possible open. The risks of the procedure were discussed, all questions were answered, and the patient agreed to proceed with surgery as planned. Description of Procedure The patient underwent a bowel prep the day prior to surgery. Patient was appropriately identified, consented, and taken to the operating room where she was placed in the low lithotomy position. General endotracheal anesthesia was induced. SCDs, Zhang catheter, an NG tube, and a safety belt were placed. The patient's abdomen was prepped and draped in the standard sterile fashion. A surgical timeout was performed and all parties were in agreement as the correct patient and procedure to be performed and we continued as planned. An incision was made just to the left of the umbilicus. The abdomen was entered using the Veress needle. Saline drop test confirmed entry into the abdomen. The abdomen was insufflated with carbon dioxide which the patient tolerated without incident. The Veress needle was removed and the abdomen was entered using a 8 mm robotic port with a 5 mm laparoscope. The abdomen was inspected and no damage from initial trocar placement or Veress needle placement was noted. There was some tattoo sprayed throughout the peritoneum and omentum. No evidence of metastatic disease was present. 8 mm robotic ports were then placed x 2 in the right lower quadrant. A 12 mm port was placed in the left upper quadrant. A 5 mm client account assistant port was placed in the left lower quadrant. The patient was placed in the reverse Trendelenburg position. The omentum was grasped with a laparoscopic grasper and elevated superiorly. This exposed the tumor in the mid transverse colon. The tumor was palpable. There were tattoo holliday proximally and distally to the tumor. The robot was docked and the instruments inserted. After examining the colon it was quite redundant and the tumor was in the m idportion of the transverse colon. I elected to perform a transverse colectomy. The splenic flexure and hepatic flexures were mobilized. The omentum was mobilized off of the transverse colon using cautery scissors and the vessel sealer. Small portions of the right and left colon were mobilized by taking down the white line of Toldt. A portion of the omentum overlying the tumor was left intact as it was adherent to the tumor and divided above the transverse colon using the vessel. The colon was then elevated towards the anterior abdominal wall and superiorly. The peritoneum was scored and the middle colic pedicle was identified. This was divided using the vessel sealer. The mesentery was then divided after selecting proximally and distal transection points several centimeters from the tattoo holliday on either side. Hemostasis was excellent. Care was taken to keep the duodenum and retroperitoneal structures away from the dissection. The dissection was carried to the resection points. ICG was injected and firefly was used to confirm good blood supply at the resection points. The transverse colon was divided proximally and distal to the 2 tattoo holliday using the 60 mm robotic stapler. The specimen was then placed in the left upper quadrant. The 2 ends of the transverse colon appeared to reach easily into the middle of the abdomen without significant tension. I then el ected to perform an intracorporeal [id number] functional end-to-end anastomosis. Colotomies were made in both limbs of the colon using the vessel sealer. Sequential fires of the 60 mm endoscopic stapler were used to create the anastomosis. The common enterotomy was then closed with a running 2 -0 V- Loc absorbable suture. The suture was then run back on itself in a Lembert fashion to imbricate the suture line. 3-0 Vicryl simple suture was used to reapproximate the bowel at the crotch staple line. There was a small amount of tension in this area and the right colon was further mobilized until there was no tension on the anastomosis. ICG was again injected and showed excellent blood flow to the anastomosis. There was no evidence of bleeding. There did not appear to be any evidence of a leak. The specimen was grasped with a laparoscopic grasper. The instruments were removed and robot was undocked. The 12 mm port was removed, the incision and fascia were opened for a few centimeters more and an Lzáaro wound protector was placed. The specimen was delivered into the incision and removed. This was sent to pathology. The Lázaro wound protector was removed and the fascia was closed with a running #0 PDS suture. The wound was irrigated and hemostasis achieved. The fascia and incisions were injected with Exparel. We then reentered laparoscopically. There was no evidence of significant bleeding. The anastomosis appeared to be healthy with good blood supply and no obvious bleeding. It had minimal tension. The abdomen was gently irrigated. Laparoscopy was ceased and the abdomen was allowed to collapse. The ports were removed. The skin of all port sites was closed with a 4-0 Monocryl subcuticular sutures. Dermabond was placed over the incisions. The NG tube and Zhang catheter were removed. The patient was extubated in the operating room and taken to the PACU where she recovered without apparent incident. All sponge, instruments, and needle counts were correct at the conclusion of the procedure. The patient tolerated the procedure without incident. The nurse practitioner was present and scrubbed for the entire the case. She was critical in positioning the patient, prepping and draping, retraction and exposure, driving the laparoscope, retraction of the bowel and irrigation through the client account assistant port, closure the fascia and incisions, placement of the dressings. I attest to the content of the Intraoperative Record and any orders documented therein. Any exceptions are noted below.
[2024-07-11] MEDS: INSULIN HUMAN REGULAR PER UNIT 2 UNITS in SYRINGE 0 ML IV STA (12:42)
[2024-07-11] MEDS: PROMETHAZINE HCL 6.25 MG in SODIUM CHLORIDE 0.9% 50 ML IV PRN (12:59)
[2024-07-11] MEDS: BUPIVACAINE LIPOSOME 1.3% 266 MG/20 ML VIAL ONE (13:01)
[2024-07-11] MEDS ORDERED: GLUCOSE 10 TAB/TUBE PO PRN (13:23)
[2024-07-11] MEDS ORDERED: MoRPHine SULFATE 4 MG/ML 1 ML CARP\\VIAL IV PRN (13:23)
[2024-07-11] MEDS ORDERED: DEXTROSE 50% 50 ML SYRINGE IV PRN (13:23)
[2024-07-11] MEDS ORDERED: CARBOHYDRATES FOR HYPOGLYCEMIA PO PRN (13:23)
[2024-07-11] MEDS ORDERED: GLUCAGON FOR INJ 1 MG VIAL SQ PRN (13:23)
[2024-07-11] MEDS ORDERED: GLUCOSE 40% GEL 15 GM TUBE PO PRN (13:23)
[2024-07-11] MEDS ORDERED: PHARMACY GLYCEMIC MGMT CONSULT PRN (13:23)
[2024-07-11] MEDS ORDERED: oxyCODONE HCL IR 5 MG TAB (IMMEDIATE RELEASE) PO PRN ×2 (13:23)
[2024-07-11] MEDS ORDERED: ACETAMINOPHEN 1,000 MG/100 ML VIAL IV PRN (13:23)
[2024-07-11] MEDS ORDERED: MoRPHine SULFATE 2 MG/ML CARP IV PRN (13:23)
[2024-07-11] MEDS ORDERED: ONDANSETRON INJ 2 MG/ML 2 ML VIAL IV PRN (13:23)
--- NOTE | 2024-07-11 13:38 | Anesthesiology Progress Note ---
Date of Service July 11, 2024 Anesthesia Post Procedure Vital Signs Vital Signs: Temp Pulse Resp BP Pulse Ox O2 Del Method O2 Flow Rate 07/11/24 13:35 80 19 95/49 L 92 Nasal Cannula 3 07/11/24 13:25 81 19 100/60 92 Nasal Cannula 3 07/11/24 13:15 78 20 110/57 L 92 Nasal Cannula 3 07/11/24 13:05 80 14 119/77 92 Nasal Cannula 3 07/11/24 12:55 83 20 115/56 L 94 Nasal Cannula 3 07/11/24 12:45 36.3 C L 79 15 113/65 94 Nasal Cannula 3 07/11/24 12:35 80 21 105/55 L 94 Nasal Cannula 3 07/11/24 12:25 80 17 127/58 L 94 Nasal Cannula 3 07/11/24 12:15 88 19 125/70 95 Nasal Cannula 3 07/11/24 12:06 36.5 C 96 H 17 139/61 92 Oxymask 5 07/11/24 06:32 36.6 C 80 20 126/70 99 Room Air Transfer of Care Handoff Completed per policy Notes Mental Status: alert / awake / arousable and participated in evaluation Patient Amnestic to Procedure: Yes Nausea / Vomiting: adequately controlled Pain: adequately controlled Airway Patency, RR, SpO2: stable & adequate BP & HR: stable & adequate Hydration State: stable & adequate Anesthetic Complications: no major complications apparent and Pt Satisfied with anesthetic care
[2024-07-11] MEDS: INSULIN ASPART PER UNIT CHARGE SC SCH ×2 (14:08→16:55)
--- NOTE | 2024-07-11 15:28 | Pharmacy Report ---
Pharmacy Glycemic Short Note 2 - Date of Service July 11, 2024 - Glycemic Short BSG Results (Last 24 hours): 07/11/24 07/11/24 07/11/24 06:32 08:54 10:06 POC Glucose 183 H 174 H 287 H 07/11/24 07/11/24 07/11/24 11:19 12:08 13:16 POC Glucose 277 H 279 H 308 H* 07/11/24 07/11/24 07/11/24 13:18 13:55 13:56 POC Glucose 307 H* 301 H* 302 H* OUTPATIENT ANTIDIABETIC REGIMEN: * Jardiance 25 mg PO AM * Metformin 1000 mg PO BID * Trulicity 1.5 mg SC every Tuesday * Lantus 54 units SC daily HbA1c: * 6.3% (05/07/24) ASSESSMENT: * 84 yo F admitted on 07/11/24 postoperatively following a colectomy. Pharmacy has been consulted to assist with inpatient glycemic management. Patient is a Type 2 diabetic as an outpatient. Please refer to outpatient regimen and most recent HbA1c above. * Ordered a T2DM diet postop. Unsure if patient will tolerate due to complaints of nausea. * Took half dose of basal at home this AM (24 units reported by patient). Due to uncertainty of PO intake will order another 20 units of basal to be given with dinner. This will represent a 20% reduction in home dose. * BSGs have been uncontrolled: [phone] mg/dL. Already mentioned adding more basal with dinner and will start Novolog based on weight/stress of 3 for hyperglycemia. Adding an overnight check x 1 tonight. PLAN FOR INPATIENT GLYCEMIC CONTROL: * Hold outpatient oral diabetes medications * Basal insulin * Lantus 24 units SC prior to admission * Lantus 20 units SC x 1 with dinner * Bolus insulin * NovoLog per scale ACHS or Q6hrs while NPO * Goal Range: Low 110 mg/dL - High 140 mg/dL * Correction Factor: 20 mg/dL/unit * Nutritional / Prandial insulin per carb ratio of 1 unit per 7 grams CHO consumed
[2024-07-11] MEDS: cefOXitin 2,000 MG in DEXTROSE 5 % MINI-B 50 ML IV SCH (16:09)
[2024-07-11] MEDS: SODIUM CHLORIDE 0.9% 1,000 ML IV SCH (16:09)
[2024-07-11] MEDS: PROMETHAZINE HCL INJ 25 MG/ML 1 ML VIAL ONE (16:11)
[2024-07-11] MEDS: INSULIN ASPART PER UNIT CHARGE ONE (16:12)
[2024-07-11] MEDS ORDERED: LANTUS PER UNIT CHARGE SC ONE (16:30)
[2024-07-11] MEDS ORDERED: INSULIN HUMAN REGULAR SC SCH (16:30)
[2024-07-11] MEDS: ACETAMINOPHEN 325 MG TAB PO PRN (17:01)
[2024-07-11] MEDS: busPIRone 5 MG TAB PO SCH (17:02)
--- NOTE | 2024-07-11 17:10 | Hospitalist Consultation ---
Date of Consultation July 11, 2024 Assessment & Plan (1) Controlled type 2 diabetes with renal manifestation: Main reason for consult being that she did not stop her Jardiance preopfortunately she looks quite hemodynamically stable, and feels well. My main 2 concerns with that would be fluid loss from her current hyperglycemia leading to diuresisbut her sugars are improving with insulin management and her volume status looks good; and theoretically 1 could have a euglycemic DKA/ketoacidosisgiven that she is not tachypneic and feels well and her vitals are good I doubt this is the case, but grabbing a basic metabolic panel urgently to screen for any acidosis. The half-life is reasonably long, so obviously will need to continue to monitor her for both of these for the short term (half-life of about 12 hours)and should she show any significant hypotension or acidosisaggressive fluid management would likely be the most immediate remedy. Otherwise as far as her glycemic control, pharmacy has been consulted for glycemic managementand we will continue to follow her glucoses with insulin rx (2) Stage III chronic kidney disease: follow labs, baseline range appears to be reasonable (3) Anemia: while microcytic anemia led to the colonoscopy that led to finding the colon cancer, fortunately her preop hemoglobin was actually pretty good (4) HTN (hypertension): blood pressures are quite reasonable given the circumstances, home meds have been ordered, follow pressures (5) DVT prophylaxis: SCDs currently ordered by primary service History of Present Illness Reason for Consultation: Medical management (did not stop Jardiance preop) Attending Physician: Yan Wilson DO, LU History of Present Illness patient is a very pleasant 84-year-old female who is status post hemicolectomy. She denies any pain, no shortness of breath, generally feels well. Does feel a little bit groggy. Outpatient records reviewed. Allergies Allergy/AdvReac Type Severity Reaction Status Date / Time No Known Allergies Allergy Verified 07/11/24 06:11 Home Medications Medication Instructions Recorded Confirmed Type cholecalciferol (vitamin D3) 25 25 mcg PO QPM 01/02/20 07/11/24 History mcg (1,000 unit) capsule cranberry extract 250 mg capsule 250 mg PO QAM 10/20/22 07/11/24 History famotidine 20 mg tablet 20 mg PO QPM 10/20/22 07/11/24 History lisinopril 40 mg tablet 40 mg PO QAM #90 tabs 06/30/23 07/11/24 Rx empagliflozin 25 mg tablet 25 mg PO QAM 90 days #90 tabs 08/04/23 07/11/24 Rx (Jardiance) buspirone 5 mg tablet 5 mg PO TID #270 tabs 01/10/24 07/11/24 Rx simvastatin 10 mg tablet 10 mg PO QPM #90 tabs 01/10/24 07/11/24 Rx amlodipine 5 mg tablet 5 mg PO QAM 01/29/24 07/11/24 History pen needle, diabetic 31 gauge x 03/16/24 06/13/24 History 3/16" metformin 1,000 mg tablet 1,000 mg PO BID #180 tabs 03/22/24 07/11/24 Rx metoprolol succinate 50 mg 50 mg PO BID #180 tabs 03/22/24 07/11/24 Rx tablet,extended release 24 hr blood sugar diagnostic (OneTouch #100 ea 04/09/24 06/13/24 Rx Ultra Test strips) allopurinol 100 mg tablet 100 mg PO QPM 04/25/24 07/11/24 History ferrous sulfate 325 mg (65 mg 325 mg PO DAILY 05/21/24 07/11/24 History iron) tablet (FeroSul) insulin glargine 100 unit/mL (3 54 unit (0.54 mL) subcut QAM #15 mL 06/26/24 07/11/24 Rx mL) subcutaneous pen (Lantus Solostar U-100 Insulin) dulaglutide 1.5 mg/0.5 mL 1.5 mg subcut WK 07/03/24 07/11/24 History subcutaneous pen injector (Trulicity) lorazepam 1 mg tablet 0.5 mg PO UD PRN vertigo 07/03/24 07/11/24 History meclizine 25 mg tablet 25 mg PO UD PRN motion sickness 07/03/24 07/11/24 History metronidazole 500 mg tablet 500 mg PO UD 07/03/24 07/11/24 History neomycin 500 mg tablet 500 mg PO UD pre-op 07/03/24 07/11/24 History oxycodone 5 mg tablet 5 - 10 mg (1 - 2 x 5 mg) PO 07/11/24 Rx .[id number] PRN pain #15 tabs Patient History Medical History Thyroid nodule monitoring. Anemia History of gout Colon cancer dx apr 2024 GERD (gastroesophageal reflux disease) Ambulatory dysfunction no WC or walker - slow to ambulate. Stage III chronic kidney disease no specialist Hyperlipidemia HTN (hypertension) Arthritis Atrial premature complex no cards Anxiety hx of situational anxiety - taking buspirone from 10 years ago Diabetes mellitus, type 2 IDDM Vertigo triggered by laying supine. Surgical History H/O colectomy (07/11/24) Robotic Assisted transverse Colectomy, robotic mobilization of splenic flexure and hepatic flexure, intracorporeal anastomosis- Yan Wilson DO, FACS History of cataract surgery bilat History of colonoscopy History of tubal ligation Family History Father Cardiac disorder Myocardial infarction Mother Diabetes Cardiac disorder Hypertension Grandmother (Paternal) Breast cancer Other No family history of adverse response to anesthesia Denies family history of Ovarian cancer Prostate cancer Colorectal cancer Social History Smoking Status: Former smoker Tobacco Type: Cigarettes Age Started Using Tobacco: 16; Age Quit Using Tobacco: 62; packs per day: 1; Cigarettes Per Day: smoked 40 years; Smoking End Date: 2001; Second Hand Exposure: No; Do You Dip or Chew Tobacco: No; Hx Alcohol Use: Yes Hx Substance Use: No Preferred Language: Belizean Communication Ability: Effective Visual Impairment: No Limitations Hearing Ability: Use of Hearing Aid Information Technology Internship Required: No Beliefs That Will Affect Care: None marital status: Current Living Situation: Spouse current occupational status: retired current occupation: used to teach middle school, all subjects How many Children do You have: 1 Other Information That Helps Us Care for You: No Feels Safe at Home: Yes Childhood Exposure to Second-Hand Smoke: Yes Diet: regular caffeine: No during the past year weight has: decreased > 10 lbs Dental Care, Regularly: Yes Physical Activity Frequency: 1-2 Times per Week Seatbelt Use: always Sunscreen Use: No Assistive Devices: Glasses and Hearing Aid - Bilateral Review of Systems Review of Systems: All systems reviewed & are unremarkable except as noted in HPI & below Physical Exam Physical Exam: In general she is awake and alert pleasant slightly fatigued but no distress. HEENT normocephalic atraumatic mucous membranes moist. Breathing unlabored no accessory muscle use good effort. Skin without rashes pallor or icterus. Neuro without focal deficits. Results & Data Results & Data Vital Signs (Past 12 Hours) Vital Signs Temp Pulse Pulse Resp BP Pulse Ox O2 Del Method 07/11/24 16:47 85 16 111/67 93 Room Air 07/11/24 15:30 97.3 F L 88 92 H 111/70 92 Nasal Cannula 07/11/24 14:50 Nasal Cannula 07/11/24 14:30 97.5 F L 80 14 95/56 L 95 Nasal Cannula 07/11/24 14:15 80 20 96/58 L 94 Nasal Cannula 07/11/24 14:05 79 21 97/55 L 94 Nasal Cannula 07/11/24 13:55 97.5 F L 80 20 105/63 94 Nasal Cannula 07/11/24 13:45 79 21 108/53 L 94 Nasal Cannula 07/11/24 13:35 80 19 95/49 L 92 Nasal Cannula 07/11/24 13:25 81 19 100/60 92 Nasal Cannula 07/11/24 13:15 78 20 110/57 L 92 Nasal Cannula 07/11/24 13:05 80 14 119/77 92 Nasal Cannula 07/11/24 12:55 83 20 115/56 L 94 Nasal Cannula 07/11/24 12:45 97.3 F L 79 15 113/65 94 Nasal Cannula 07/11/24 12:35 80 21 105/55 L 94 Nasal Cannula 07/11/24 12:25 80 17 127/58 L 94 Nasal Cannula 07/11/24 12:15 88 19 125/70 95 Nasal Cannula 07/11/24 12:06 97.7 F 96 H 17 139/61 92 Oxymask 07/11/24 06:32 97.9 F 80 20 126/70 99 Room Air O2 Flow Rate 07/11/24 16:47 07/11/24 15:30 1 07/11/24 14:50 2 07/11/24 14:30 2 07/11/24 14:15 3 07/11/24 14:05 3 07/11/24 13:55 3 07/11/24 13:45 3 07/11/24 13:35 3 07/11/24 13:25 3 07/11/24 13:15 3 07/11/24 13:05 3 07/11/24 12:55 3 07/11/24 12:45 3 07/11/24 12:35 3 07/11/24 12:25 3 07/11/24 12:15 3 07/11/24 12:06 5 07/11/24 06:32 PG Care Time/CCT Total # of Minutes Spent Total Time Spent with Patient: Total time spent is greater than 50% in coordination of care (as documented) at patient's floor/unit and/or counseling patient: Coding Level of Care Code 91758 IN/OBS CONSULT LVL 4,60M Diagnoses Controlled type 2 diabetes with renal manifestation E11.29 Stage III chronic kidney disease N18.3 Anemia D64.9 HTN (hypertension) I10 DVT prophylaxis Z29.9
[2024-07-11] MEDS: LANTUS PER UNIT CHARGE SC ONE (17:50)
[2024-07-11 17:57] LABS: BUN Creatinine Ratio 12.2 (10-20); Calcium 9.1 mg/dl (8.6-10.3); Creatinine Clr Calc Pharmacy 29.9 ml/min; Potassium 4.9 mmol/L (3.5-5.1)
[2024-07-11] MEDS: METOPROLOL SUCC 50MG EXT REL TAB PO SCH (19:40)
[2024-07-11] MEDS: SIMVASTATIN 10 MG TAB PO SCH (19:41)
[2024-07-11] MEDS: allopurinoL 100 MG TAB PO SCH (19:41)
[2024-07-11] MEDS: CHOLECALCIFEROL 25 MCG (1000 UNITS) TAB PO SCH (19:41)
[2024-07-11] MEDS: FAMOTIDINE 20 MG TAB PO SCH (19:41)
[2024-07-12] MEDS: INSULIN ASPART PER UNIT CHARGE SC ONE (02:13)
[2024-07-12 07:17] LABS: Basophils # (auto) 0.01 K/uL (0.00-0.20); Basophils % (auto) 0.2 %; Hematocrit (blood only) 35.3 % (37.0-47.0); Immature Granulocytes # (auto) 0.03 K/uL (0.01-0.20); Immature Granulocytes % (auto) 0.5 %; Lymphocytes # (auto) 0.73 K/uL (1.20-3.40); Mean Corpuscular Hemoglobin 27.2 pg (25.0-34.0); Mean Corpuscular Hgb Conc 31.2 g/dL (32.0-36.0); Mean Corpuscular Volume 87.2 fL (80.0-100.0); Mean Platelet Volume 9.8 fL (9.4-12.4); Monocytes # (auto) 0.67 K/uL (0.11-0.59); Monocytes % (auto) 10.1 %; Neutrophils # (auto) 5.19 K/uL (1.40-6.50); Neutrophils % (auto) 78.2 %; Platelet Count 239 K/uL (130-400); RDW Coefficient of Variation 15.8 % (11.5-14.5); RDW Standard Deviation 50.4 fL (36.4-46.3); Red Blood Count 4.05 M/uL (4.20-5.40); White Blood Count 6.63 K/ul (4.8-10.8)
[2024-07-12 07:30] LABS: BUN Creatinine Ratio 11.3 (10-20); Creatinine Clr Calc Pharmacy 36.2 ml/min; Potassium 4.9 mmol/L (3.5-5.1)
[2024-07-12] MEDS: amLODIPine BESYLATE 5 MG TAB PO SCH (07:39)
[2024-07-12] MEDS: lisinopril 40 MG TAB PO SCH (07:39)
--- NOTE | 2024-07-12 07:50 | Surgery Progress Note ---
Date of Service July 12, 2024 Assessment & Plan (1) Primary adenocarcinoma of transverse colon: Plan: POD#1 robotic partial colectomy WBC 6, Hbg 11, Cr 1.1, vitals stable pt is doing well, tolerating clears, pain and nausea controlled she is voiding abdomen soft, incisions c/d/i will advance to full liquids today encouraged OOB ambulating and pulmonary toilet, will start dvt prophylaxis Admission and Anticipated Discharge Date Admission Date: July 11, 2024 Supervising Physician Co-Signing Physician Notes Patient seen and examined, labs and reviewed, agree with above. POD #1 robotic transverse colectomy. Doing well, minimal pain, tolerating full liquids. No flatus but feels like things might move through soon. On exam she is afebrile with stable vitals. Her abdomen is soft, nondistended, probably tender to palpation. Incisions with Dermabond in place, some ecchymosis in the extraction site incision of the left upper quadrant, but otherwise no infection or abnormality. WBC normal, H&H stable. Continue with full liquids, possible advance to low fiber tomorrow. Await return of bowel function. Ambulate, I-S, DVT prophylaxis. Subjective Patient is feeling well. Abdominal pain is well controlled. No nausea. Not yet passing gas but feelings rumblings. She is tolerating clears without issues. Physical Exam Physical Exam: awake/alert, no distress Respiratory: normal respiratory effort Gastrointestinal (Abdomen): Inspection/Auscultation: + abdominal surgical incision (c/d/i with skin glue, mild ecchymosis at extraction site, no infxn); abdomen not distended Percussion/Palpation: abdomen soft; abdomen nontender Results & Data Vital Signs (Past 12 Hours) Vital Signs Temp Pulse Resp BP Pulse Ox O2 Del Method 07/12/24 07:10 97.7 F 85 16 121/77 94 Room Air 07/12/24 02:09 97.7 F 74 18 125/76 96 Room Air 07/11/24 22:45 97.5 F L 76 18 107/64 96 Room Air PG Care Time/CCT Total # of Minutes Spent Total Time Spent with Patient: Total time spent is greater than 50% in coordination of care (as documented) at patient's floor/unit and/or counseling patient: Coding Level of Care Code 10548 Post Operative Follow-Up Diagnoses Primary adenocarcinoma of transverse colon C18.4
[2024-07-12] MEDS: LANTUS PER UNIT CHARGE SC SCH (08:14)
--- NOTE | 2024-07-12 10:48 | Pharmacy Report ---
Pharmacy Glycemic Short Note 2 - Date of Service July 12, 2024 - Glycemic Short BSG Results (Last 24 hours): 07/11/24 07/11/24 07/11/24 11:19 12:08 13:16 Glucose POC Glucose 277 H 279 H 308 H* 07/11/24 07/11/24 07/11/24 13:18 13:55 13:56 Glucose POC Glucose 307 H* 301 H* 302 H* 07/11/24 07/11/24 07/11/24 16:53 17:14 20:40 Glucose 211 H POC Glucose 215 H 160 H 07/12/24 07/12/24 07/12/24 02:07 06:30 07:13 Glucose 131 H POC Glucose 140 H 119 H OUTPATIENT ANTIDIABETIC REGIMEN: * Jardiance 25 mg PO AM * Metformin 1000 mg PO BID * Trulicity 1.5 mg SC every Tuesday * Lantus 54 units SC daily HbA1c: * 6.3% (05/07/24) ASSESSMENT: 07/12 * Patient received total of 59 units of insulin yesterday, of which 44 units were basal insulin * Patient did receive IV steroids in OR yesterday, no steroids ordered this AM * Fasting BSG 119 mg/dL - will trial Lantus 35 units once daily as unclear what PO intake will be. Anticipate needs to be less with no steroids. 07/11 * 84 yo F admitted on 07/11/24 postoperatively following a colectomy. Pharmacy has been consulted to assist with inpatient glycemic management. Patient is a Type 2 diabetic as an outpatient. Please refer to outpatient regimen and most recent HbA1c above. * Ordered a T2DM diet postop. Unsure if patient will tolerate due to complaints of nausea. * Took half dose of basal at home this AM (24 units reported by patient). Due to uncertainty of PO intake will order another 20 units of basal to be given with dinner. This will represent a 20% reduction in home dose. * BSGs have been uncontrolled: [phone] mg/dL. Already mentioned adding more basal with dinner and will start Novolog based on weight/stress of 3 for hyperglycemia. Adding an overnight check x 1 tonight. PLAN FOR INPATIENT GLYCEMIC CONTROL: * Hold outpatient oral diabetes medications * Basal insulin * Lantus 35 units once daily * Bolus insulin * NovoLog per scale ACHS or Q6hrs while NPO * Goal Range: Low 110 mg/dL - High 140 mg/dL * Correction Factor: 20 mg/dL/unit * Nutritional / Prandial insulin per carb ratio of 1 unit per 7 grams CHO consumed
[2024-07-12] MEDS: HEPARIN SOD 5,000 UNIT/0.5 ML VIAL SQ SCH (13:37)
--- NOTE | 2024-07-12 17:39 | Hospitalist Consultation ---
Date of Consultation July 12, 2024 Assessment & Plan (1) Controlled type 2 diabetes with renal manifestation: (2) Stage III chronic kidney disease: (3) HTN (hypertension): (4) Anemia: (5) DVT prophylaxis: Plan Sandy is an 84 year old female with PMH of T2DM, CKD3, HTN, anemia, and arthritis who was admitted to the hospital after colon resection for primary adenocarcinoma. Post-Op Care managed by surgical team. T2DM - Has remained stable inpatient on BSG checks ACHS and SSI - Pharmacy consultation ongoing CKD3 - Chronic, stable outpatient - Did not discontinue Jardiance prior to surgery, thus required kidney function monitoring - Creatinine briefly elevated to 1.35, now returned to baseline at 1.15 - Patient received 1L IVF with benefit, now discontinued HTN - Chronic, stable - BP remains at goal inpatient - Continue home antihypertensives Anemia - Though reason for colonoscopy that diagnosed adenocarcinoma, Hgb remains stable - Pre-operative Hgb 12, post-operative Hgb 11 - Continue home iron supplementation Code: Full DVT ppx: SCD Diet: Regular () Dispo: Per surgery primary, Hospitalist sign off 07/12 Supervising Physician Co-Signing Physician Notes I personally examined the patient and verified all escalona points of history and exam, discussed case, and agree with decision making with Dr Bergman feeling good. No complaints. Pain under control. Clear liquids going well. Vitals noted, in general she is awake and alert pleasant no distress. HEENT normocephalic atraumatic mucous membranes moist. Breathing unlabored no accessory muscle use good effort. Skin without rashes. Or icterus. Status post colectomydoing well. Per primary service diabetespharmacy managing. Fortunately no ill effects from having taken Jardiance morning of surgery. Otherwise as above. Medically appears stable. Hospitalist team will sign off at this time. Avai lable if we can be of any further assistance. History of Present Illness Attending Physician: Yan Wilson, DO, FACS History of Present Illness Patient was resting comfortably in bed upon examination. NAEON. Patient reports adequate pain control. No concerns expressed today. Allergies Allergy/AdvReac Type Severity Reaction Status Date / Time No Known Allergies Allergy Verified 07/11/24 06:11 Home Medications Medication Instructions Recorded Confirmed Type cholecalciferol (vitamin D3) 25 25 mcg PO QPM 01/02/20 07/11/24 History mcg (1,000 unit) capsule cranberry extract 250 mg capsule 250 mg PO QAM 10/20/22 07/11/24 History famotidine 20 mg tablet 20 mg PO QPM 10/20/22 07/11/24 History lisinopril 40 mg tablet 40 mg PO QAM #90 tabs 06/30/23 07/11/24 Rx empagliflozin 25 mg tablet 25 mg PO QAM 90 days #90 tabs 08/04/23 07/11/24 Rx (Jardiance) buspirone 5 mg tablet 5 mg PO TID #270 tabs 01/10/24 07/11/24 Rx simvastatin 10 mg tablet 10 mg PO QPM #90 tabs 01/10/24 07/11/24 Rx amlodipine 5 mg tablet 5 mg PO QAM 01/29/24 07/11/24 History pen needle, diabetic 31 gauge x 03/16/24 06/13/24 History 3/16" metformin 1,000 mg tablet 1,000 mg PO BID #180 tabs 03/22/24 07/11/24 Rx metoprolol succinate 50 mg 50 mg PO BID #180 tabs 03/22/24 07/11/24 Rx tablet,extended release 24 hr blood sugar diagnostic (OneTouch #100 ea 04/09/24 06/13/24 Rx Ultra Test strips) allopurinol 100 mg tablet 100 mg PO QPM 04/25/24 07/11/24 History ferrous sulfate 325 mg (65 mg 325 mg PO DAILY 05/21/24 07/11/24 History iron) tablet (FeroSul) insulin glargine 100 unit/mL (3 54 unit (0.54 mL) subcut QAM #15 mL 06/26/24 07/11/24 Rx mL) subcutaneous pen (Lantus Solostar U-100 Insulin) dulaglutide 1.5 mg/0.5 mL 1.5 mg subcut WK 07/03/24 07/11/24 History subcutaneous pen injector (Trulicity) lorazepam 1 mg tablet 0.5 mg PO UD PRN vertigo 07/03/24 07/11/24 History meclizine 25 mg tablet 25 mg PO UD PRN motion sickness 07/03/24 07/11/24 History metronidazole 500 mg tablet 500 mg PO UD 07/03/24 07/11/24 History neomycin 500 mg tablet 500 mg PO UD pre-op 07/03/24 07/11/24 History oxycodone 5 mg tablet 5 - 10 mg (1 - 2 x 5 mg) PO 07/11/24 Rx .[id number] PRN pain #15 tabs Patient History Medical History Thyroid nodule monitoring. Anemia History of gout Colon cancer dx apr 2024 GERD (gastroesophageal reflux disease) Ambulatory dysfunction no WC or walker - slow to ambulate. Stage III chronic kidney disease no specialist Hyperlipidemia HTN (hypertension) Arthritis Atrial premature complex no cards Anxiety hx of situational anxiety - taking buspirone from 10 years ago Diabetes mellitus, type 2 IDDM Vertigo triggered by laying supine. Surgical History H/O colectomy (07/11/24) Robotic Assisted transverse Colectomy, robotic mobilization of splenic flexure and hepatic flexure, intracorporeal anastomosis- Yan Wilson DO, FACS History of cataract surgery bilat History of colonoscopy History of tubal ligation Family History Father Cardiac disorder Myocardial infarction Mother Diabetes Cardiac disorder Hypertension Grandmother (Paternal) Breast cancer Other No family history of adverse response to anesthesia Denies family history of Ovarian cancer Prostate cancer Colorectal cancer Social History Smoking Status: Former smoker Tobacco Type: Cigarettes Age Started Using Tobacco: 16; Age Quit Using Tobacco: 62; packs per day: 1; Cigarettes Per Day: smoked 40 years; Smoking End Date: 2001; Second Hand Exposure: No; Do You Dip or Chew Tobacco: No; Hx Alcohol Use: Yes Hx Substance Use: No Preferred Language: Occitan Communication Ability: Effective Visual Impairment: No Limitations Hearing Ability: Use of Hearing Aid Radio Mechanic Helper Required: No Beliefs That Will Affect Care: None marital status: Current Living Situation: Spouse current occupational status: retired current occupation: used to teach middle school, all subjects How many Children do You have: 1 Other Information That Helps Us Care for You: No Feels Safe at Home: Yes Childhood Exposure to Second-Hand Smoke: Yes Diet: regular caffeine: No during the past year weight has: decreased > 10 lbs Dental Care, Regularly: Yes Physical Activity Frequency: 1-2 Times per Week Seatbelt Use: always Sunscreen Use: No Assistive Devices: None Physical Exam Physical Exam: Gen: NAD, awake, pleasant HEENT: NCAT, MMM Resp: Non-labored Cardio: RRR, normal S1/S2, no MRG Skin: No rashes, pallor, or lesions, surgical bandages intact Neuro: No focal deficits, AO x 3 Results & Data Results & Data Vital Signs (Past 12 Hours) Vital Signs Temp Pulse Resp BP Pulse Ox O2 Del Method 07/12/24 14:27 36.4 C L 72 17 116/73 96 Room Air 07/12/24 07:10 36.5 C 85 16 121/77 94 Room Air Resident Activity Tracking Resident Involvement: Resident Care Provided Care Provided: Adult Hospital Medicine
--- NOTE | 2024-07-12 18:36 | Billing Data ---
Date of Service July 12, 2024 Coding Level of Care Code 65664 SUB INP/OBS CARE
[2024-07-13 06:54] LABS: Basophils # (auto) 0.03 K/uL (0.00-0.20); Basophils % (auto) 0.5 %; Eosinophils # (auto) 0.08 K/uL (0.00-0.50); Eosinophils % (auto) 1.4 %; Hematocrit (blood only) 34.4 % (37.0-47.0); Immature Granulocytes # (auto) 0.02 K/uL (0.01-0.20); Immature Granulocytes % (auto) 0.3 %; Lymphocytes # (auto) 1.24 K/uL (1.20-3.40); Lymphocytes % (auto) 21.6 %; Mean Corpuscular Hemoglobin 28.1 pg (25.0-34.0); Mean Platelet Volume 10.4 fL (9.4-12.4); Monocytes # (auto) 0.73 K/uL (0.11-0.59); Monocytes % (auto) 12.7 %; Neutrophils # (auto) 3.65 K/uL (1.40-6.50); Neutrophils % (auto) 63.5 %; Platelet Count 240 K/uL (130-400); RDW Standard Deviation 51.6 fL (36.4-46.3); Red Blood Count 3.91 M/uL (4.20-5.40); White Blood Count 5.75 K/ul (4.8-10.8)
[2024-07-13 06:58] LABS: Creatinine Clr Calc Pharmacy 37.8 ml/min; Potassium 4.4 mmol/L (3.5-5.1)
[2024-07-13] MEDS: LANTUS PER UNIT CHARGE SC SCH (08:42)
--- NOTE | 2024-07-13 08:56 | Surgery Progress Note ---
Date of Service July 13, 2024 Assessment & Plan (1) Primary adenocarcinoma of transverse colon: Plan: POD#3 robotic partial colectomy vitals stable, no wbc elevation, +flatus no bm yet abdomen soft, incisions c/d/i, denies abd pain continue full liquids today encouraged OOB ambulating and pulmonary toilet pt seen and examined with Dr. Anderson as above. doing well. stay on fulls until bm. Admission and Anticipated Discharge Date Admission Date: July 11, 2024 Subjective pt denies pain, nausea, vomiting +flatus , no bm yet Review of Systems Constitutional: no fever and no chills Respiratory: no dyspnea Cardiovascular: no chest pain Gastrointestinal: no abdominal pain, no nausea and no vomiting Musculoskeletal: no muscle weakness Psychiatric: no confusion Physical Exam Constitutional: cooperative and comfortable; no acute distress Respiratory: normal respiratory effort; no respiratory distress Cardiovascular: Rate/Rhythm: regular rate Gastrointestinal (Abdomen): Inspection/Auscultation: + abdominal surgical incision (CDI dermabond); abdomen not distended Percussion/Palpation: abdomen soft Musculoskeletal: no cyanosis or clubbing, extremities motor strength 5/5 Psychiatric: A+Ox3, euthymic affect Results & Data Vital Signs (Past 12 Hours) Vital Signs Temp Pulse Resp BP Pulse Ox O2 Del Method 07/13/24 07:08 97.7 F 66 16 136/75 95 Room Air Results CBC w Diff Results: RBC 3.91 M/uL (4.20-5.40) L 07/13/24 WBC 5.75 K/ul (4.8-10.8) 07/13/24 Hgb 11.0 g/dl (12.0-16.0) L 07/13/24 Hct 34.4 % (37.0-47.0) L 07/13/24 MCV 88.0 fL (80.0-100.0) 07/13/24 MCH 28.1 pg (25.0-34.0) 07/13/24 MCHC 32.0 g/dL (32.0-36.0) 07/13/24 RDW Standard Deviation 51.6 fL (36.4-46.3) H 07/13/24 RDW Coefficient of Variation 16.0 % (11.5-14.5) H 07/13/24 Plt Count 240 K/uL (130-400) 07/13/24 MPV 10.4 fL (9.4-12.4) 07/13/24 Neutrophils (%) (Auto) 63.5 % 07/13/24 Lymphocytes (%) (Auto) 21.6 % 07/13/24 Monocytes # (Auto) 0.73 K/uL (0.11-0.59) H 07/13/24 Eosinophils # (Auto) 0.08 K/uL (0.00-0.50) 07/13/24 Immature Granulocyte % (Auto) 0.3 % 07/13/24 Neutrophils # (Auto) 3.65 K/uL (1.40-6.50) 07/13/24 Lymphocytes # (Auto) 1.24 K/uL (1.20-3.40) 07/13/24 Monocytes # (Auto) 0.73 K/uL (0.11-0.59) H 07/13/24 Eosinophils # (Auto) 0.08 K/uL (0.00-0.50) 07/13/24 Basophils # (Auto) 0.03 K/uL (0.00-0.20) 07/13/24 Immature Granulocyte # (Auto) 0.02 K/uL (0.01-0.20) 4 PG Care Time/CCT Total # of Minutes Spent Total Time Spent with Patient: Total time spent is greater than 50% in coordination of care (as documented) at patient's floor/unit and/or counseling patient: Coding Level of Care Code 37839 Post Operative Follow-Up Diagnoses Primary adenocarcinoma of transverse colon C18.4
--- NOTE | 2024-07-13 10:19 | Communication Note ---
Date of Service: July 13, 2024 Patient seen and examined, labs reviewed, agree with Dr. Anderson and Ms. Kitchen's assessment. POD #2 robotic assisted transverse colectomy with anast omosis. Passing flatus. Pain minimal. Ambulating. Tolerated full liquids. On exam afebrile stable vitals. Incisions without infection. WBC normal, H&H stable. Will advance to low fiber diet. Dr. Anderson covering over the weekend. Likely discharge on Tuesday. Pathology pending. Wound care instructions and activity restrictions reviewed. Return precautions given.
--- NOTE | 2024-07-13 11:08 | Pharmacy Report ---
Pharmacy Glycemic Short Note 2 - Date of Service July 13, 2024 - Glycemic Short BSG Results (Last 24 hours): 07/12/24 07/12/24 07/12/24 11:23 16:20 20:35 Glucose POC Glucose 114 H 83 109 H 07/13/24 07/13/24 06:11 07:29 Glucose 100 H POC Glucose 100 H OUTPATIENT ANTIDIABETIC REGIMEN: * Jardiance 25 mg PO AM * Metformin 1000 mg PO BID * Trulicity 1.5 mg SC every Tuesday * Lantus 54 units SC daily HbA1c: * 6.3% (05/07/24) ASSESSMENT: 07/13 * Patient received total of 48 units of insulin yesterday, of which 35 units were basal insulin * Fasting BSG 100 mg/dL - trending down, will scale back on basal ~30% this AM * May need to provide further decrease tomorrow if BSGs lower end of goal range 07/12 * Patient received total of 59 units of insulin yesterday, of which 44 units were basal insulin * Patient did receive IV steroids in OR yesterday, no steroids ordered this AM * Fasting BSG 119 mg/dL - will trial Lantus 35 units once daily as unclear what PO intake will be. Anticipate needs to be less with no steroids. 07/11 * 84 yo F admitted on 07/11/24 postoperatively following a colectomy. Pharmacy has been consulted to assist with inpatient glycemic management. Patient is a Type 2 diabetic as an outpatient. Please refer to outpatient regimen and most recent HbA1c above. * Ordered a T2DM diet postop. Unsure if patient will tolerate due to complaints of nausea. * Took half dose of basal at home this AM (24 units reported by patient). Due to uncertainty of PO intake will order another 20 units of basal to be given with dinner. This will represent a 20% reduction in home dose. * BSGs have been uncontrolled: [phone] mg/dL. Already mentioned adding more basal with dinner and will start Novolog based on weight/stress of 3 for hyperglycemia. Adding an overnight check x 1 tonight. PLAN FOR INPATIENT GLYCEMIC CONTROL: * Hold outpatient oral diabetes medications * Basal insulin * Lantus 25 units once daily * Bolus insulin * NovoLog per scale ACHS or Q6hrs while NPO * Goal Range: Low 110 mg/dL - High 140 mg/dL * Correction Factor: 30 mg/dL/unit * Nutritional / Prandial insulin per carb ratio of 1 unit per 10 grams CHO consumed
--- NOTE | 2024-07-14 05:48 | Surgery Progress Note ---
Date of Service July 14, 2024 Assessment & Plan (1) Primary adenocarcinoma of transverse colon: Plan: Status post transverse colectomy on 07/11/2024 (postop day #3) Continue analgesics as needed Continue antiemetics as needed Continue diet as tolerated Continue ambulation as tolerated Check a.m. labs when available Subcutaneous heparin is in place for DVT prevention as above. doing great. dalila diet. awaiting bowel fx. possible d/c tomorrow Admission and Anticipated Discharge Date Admission Date: July 11, 2024 Subjective Patient is resting comfortably in bed. She notes her pain is well-controlled. She is tolerating solid food without worsening abdominal pain and has not had any nausea or vomiting. She notes that she is urinating without difficulty and has been ambulating in the hallway. Physical Exam Gastrointestinal (Abdomen): Abdomen is soft and nondistended. There is minimal pain with palpation other than some minor pain near her surgical incisions which is expected. Surgical incisions are clean, dry, and intact. Results & Data Vital Signs (Past 12 Hours) Vital Signs Temp Pulse Resp BP Pulse Ox O2 Del Method 07/13/24 20:09 36.5 C 63 12 133/88 95 Room Air PG Care Time/CCT Total # of Minutes Spent Total Time Spent with Patient: Total time spent is greater than 50% in coordination of care (as documented) at patient's floor/unit and/or counseling patient: Coding Level of Care Code 03559 Post Operative Follow-Up Diagnoses Primary adenocarcinoma of transverse colon C18.4
[2024-07-14 06:02] LABS: Basophils # (auto) 0.04 K/uL (0.00-0.20); Basophils % (auto) 0.6 %; Eosinophils # (auto) 0.15 K/uL (0.00-0.50); Eosinophils % (auto) 2.3 %; Hematocrit (blood only) 36.6 % (37.0-47.0); Hemoglobin 11.9 g/dl (12.0-16.0); Immature Granulocytes # (auto) 0.03 K/uL (0.01-0.20); Immature Granulocytes % (auto) 0.5 %; Lymphocytes # (auto) 1.33 K/uL (1.20-3.40); Lymphocytes % (auto) 20.3 %; Mean Corpuscular Hemoglobin 28.2 pg (25.0-34.0); Mean Corpuscular Hgb Conc 32.5 g/dL (32.0-36.0); Mean Corpuscular Volume 86.7 fL (80.0-100.0); Mean Platelet Volume 10.4 fL (9.4-12.4); Monocytes # (auto) 0.73 K/uL (0.11-0.59); Monocytes % (auto) 11.1 %; Neutrophils # (auto) 4.28 K/uL (1.40-6.50); Neutrophils % (auto) 65.2 %; Platelet Count 277 K/uL (130-400); RDW Coefficient of Variation 15.9 % (11.5-14.5); RDW Standard Deviation 50.8 fL (36.4-46.3); Red Blood Count 4.22 M/uL (4.20-5.40); White Blood Count 6.56 K/ul (4.8-10.8)
[2024-07-14 06:36] LABS: Anion Gap 7 (3-11); BUN Creatinine Ratio 10.6 (10-20); Blood Urea Nitrogen 15 mg/dl (6-23); Calcium 9.1 mg/dl (8.6-10.3); Carbon Dioxide 23 mmol/L (21-32); Chloride 107 mmol/L (98-107); Creatinine Clr Calc Pharmacy 29.5 ml/min; Glucose 120 mg/dl (70-99(Fasting)); Sodium 137 mmol/L (136-145)
--- NOTE | 2024-07-15 05:22 | Surgery Progress Note ---
Date of Service July 15, 2024 Assessment & Plan (1) Primary adenocarcinoma of transverse colon: Plan: Status post transverse colectomy on 07/11/2024 (postop day #4) analgesics as needed antiemetics as needed Continue diet as tolerated Continue ambulation/mobilization as tolerated Check a.m. labs when available Subcutaneous heparin is in place for DVT prevention as above. doing great. dalila diet. ++flatus. no pain or nausea will d/c today. f/u with Dr. Wilson in 1-2 weeks Admission and Anticipated Discharge Date Admission Date: July 11, 2024 Subjective Patient notes that she feels well. She has not had a bowel movement since surgery but is passing flatus. She is tolerating solid liquids without any iss ues. She denies any fevers, shakes, or chills. Pain is well-controlled. She is ambulating in the hallway without difficulty. Physical Exam Gastrointestinal (Abdomen): Abdomen is soft and nondistended. Incisions are clean, dry, intact. Patient has minimal to no pain with palpation. Results & Data Vital Signs (Past 12 Hours) Vital Signs Temp Pulse Resp BP Pulse Ox O2 Del Method 07/14/24 19:36 36.3 C L 74 12 131/78 95 Room Air PG Care Time/CCT Total # of Minutes Spent Total Time Spent with Patient: Total time spent is greater than 50% in coordination of care (as documented) at patient's floor/unit and/or counseling patient: Coding Level of Care Code 55350 Post Operative Follow-Up Diagnoses Primary adenocarcinoma of transverse colon C18.4
[2024-07-15 06:20] LABS: Basophils # (auto) 0.03 K/uL (0.00-0.20); Basophils % (auto) 0.4 %; Eosinophils # (auto) 0.19 K/uL (0.00-0.50); Eosinophils % (auto) 2.6 %; Hematocrit (blood only) 36.1 % (37.0-47.0); Hemoglobin 11.1 g/dl (12.0-16.0); Immature Granulocytes # (auto) 0.04 K/uL (0.01-0.20); Immature Granulocytes % (auto) 0.6 %; Lymphocytes # (auto) 1.55 K/uL (1.20-3.40); Lymphocytes % (auto) 21.4 %; Mean Corpuscular Hemoglobin 26.8 pg (25.0-34.0); Mean Corpuscular Hgb Conc 30.7 g/dL (32.0-36.0); Mean Corpuscular Volume 87.2 fL (80.0-100.0); Mean Platelet Volume 10.6 fL (9.4-12.4); Monocytes # (auto) 0.88 K/uL (0.11-0.59); Monocytes % (auto) 12.2 %; Neutrophils # (auto) 4.55 K/uL (1.40-6.50); Neutrophils % (auto) 62.8 %; Platelet Count 249 K/uL (130-400); RDW Coefficient of Variation 15.7 % (11.5-14.5); RDW Standard Deviation 49.8 fL (36.4-46.3); Red Blood Count 4.14 M/uL (4.20-5.40); White Blood Count 7.24 K/ul (4.8-10.8)
[2024-07-15 06:41] LABS: BUN Creatinine Ratio 13.2 (10-20); Creatinine Clr Calc Pharmacy 34.4 ml/min; Potassium 4.4 mmol/L (3.5-5.1)
[2024-07-15 07:50] VITALS: PULSE 73; RESP 18; TEMP 97.5; O2SAT 96
[2024-07-15 10:19] VITALS: BP 136/75
--- NOTE | 2024-07-17 10:25 | Discharge Summary ---
Date of Service July 15, 2024 Admission HPI Per Admitting Provider Here for surgery. Initially referred for evaluation of newly diagnosed colon cancer. No family history. She had been having regular colonoscopies until age 70. She was admitted to the hospital for some lightheadedness and was noted to be mildly anemic. Her PCP ordered an fecal occult blood test which was positive. She then underwent colonoscopy which showed a malignant appearing mass in the distal transverse colon which was biopsied and tattooed. She had multiple other polyps throughout her colon. Pathology showed invasive adenocarcinoma and microsatellite instability. No prior abdominal surgeries, d enies any melena or hematochezia. She has had some abdominal cramping over the past few weeks, but other fernandez no GI symptoms. She is on multiple medications for her diabetes including insulin, however her last A1c was 6.3. 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 She is a former smoker. She lives at home with her . No changes since last visit. Principal Diagnosis Robotic Assisted Partial Colectomy Discharge Exam Constitutional cooperative and comfortable; no acute distress Respiratory normal respiratory effort; no respiratory distress Cardiovascular Rate/Rhythm: regular rate Gastrointestinal (Abdomen) Inspection/Auscultation: + abdominal surgical incision (CDI dermabond); abdomen not distended Percussion/Palpation: abdomen soft Musculoskeletal no cyanosis or clubbing, extremities motor strength 5/5 Psychiatric A+Ox3, euthymic affect Discharge Data Allergies Allergy/AdvReac Type Severity Reaction Status Date / Time No Known Allergies Allergy Verified 07/11/24 06:11 Consultations 07/11/24 13:23 Consult Hospitalist Routine Procedures Performed Operation Date: 07/11/24 07:30 Actual Procedures p Robotic Assisted Partial Colectomy(Not Applicable) - Yan Wilson DO, FACS Hospital Course (1) Primary adenocarcinoma of transverse colon: This is a 84 y female who presented to the [facility] on 07/11/24 for an elective Ro botic Assisted Partial Colectomy with Dr Wilson. The patient tolerated the procedure well, see operative report for full details. Post operatively the patient was admitted to the hospital, diet was advanced, pain managed on prn meds, and incisions clean/dry/intact, and she was having bowel movements. On POD#4 07/15/24 the patient was deemed stable for discharge to home. The patient was given discharge instructions, follow up recommendations, return precautions and a prescription for narcotic pain medication. Total Time Total Time Spent Total Time Spent (In Minutes): 10 Discharge Plan Discharge Items Patient Disposition: Home - Self-Care Reason For Visit: Primary Adenocarcinoma or Transverse Colon Discharge Diagnosis: laparoscopic partial colectomy Activity: As commented below Lifting: No more than 10 pounds Bathing Comment: you can shower. No soaking in pools/bath for 2 weeks Exercise/Sports: Wait until after follow-up appointment Driving/Machine Use: no driving if taking narcotic pain medication Non-emergency contact: Surgeon Call non-emergency contact if: you have any medication questions, your symptoms worsen, your temperature is above 101.5, your wound has increased redness, your wound has increased drainage and your wound pain has increased Follow-up/Referrals: Yan Wilson DO, FACS [Physician] - (please call to schedule follow up in clinic within 2 weeks) Krystal Jung MD [Primary Care Provider] - Diet: Low Fiber Addtl Attending Provider Instructions: SPECIAL CARE INSTRUCTIONS: * You have skin glue over your incisions called dermabond. you may shower with this on. It will tend to dissolve and fall off within a couple weeks. Do not pick at the skin glue *Continue a LOW FIBER diet upon discharge until told otherwise by your surgeon. * You may shower . NO soaking in pools or baths for 2 weeks * No lifting greater than 10lbs. No strenuous exercise until cleared by surgeon. Light walking is accepted. * No driving while taking narcotic pain medication; wait at least 3 days * No drinking alcohol while taking narcotic pain medication * May use Ibuprofen/Tylenol over the counter for pain as tolerated. Do not exceed 3grams of Tylenol per 24 hours * Expect some swelling and bruising. * Diet- continue on a low fiber diet until otherwise directed by the surgeon Call your doctor if: * Temperature above 101 degrees, nausea/vomiting, fever/chills * Pain not relieved by pain medicine ordered * There is increased drainage or redness from any incision * You have any unanswered questions or concerns [phone]. FOLLOW UP VISIT: If not already scheduled, please call the office for a follow-up visit. Office Pending Studies at Discharge: Yes Studies:: surgical pathology Stand-Alone Forms: [facility], Pain - Opioid Pain Management Medications and DC Order Prescriptions: New oxycodone 5 mg tablet 5 - 10 mg PO .[id number] MDD no more than 6 tabs in 24hours PRN (Reason: pain) Qty: 15 0RF Continued lisinopril 40 mg tablet 40 mg PO QAM Qty: 90 3RF Jardiance 25 mg tablet 25 mg PO QAM 90 Days Qty: 90 4RF simvastatin 10 mg tablet 10 mg PO QPM Qty: 90 3RF metformin 1,000 mg tablet 1,000 mg PO BID Qty: 180 3RF metoprolol succinate 50 mg tablet extended release 24 hr 50 mg PO BID Qty: 180 3RF (DME) OneTouch Ultra Test Strip See Rx Instructions .Route Qty: 100 5RF Rx Instructions: Test daily insulin glargine [Lantus Solostar U-100 Insulin] 100 unit/mL (3 mL) insulin pen 54 unit SQ QAM Qty: 15 3RF Rx Instructions: 54 units subcut daily; cholecalciferol (vitamin D3) 25 mcg (1,000 unit) capsule 25 mcg PO QPM ferrous sulfate [FeroSul] 325 mg (65 mg iron) tablet 325 mg PO DAILY (DME) pen needle, diabetic 31 gauge x 3/16" needle See Rx Instructions .ROUTE .MEDSUPPLY Rx Instructions: As directed- Once Daily cranberry extract 250 mg capsule 250 mg PO QAM Rx Instructions: administer with a meal famotidine 20 mg tablet 20 mg PO QPM metronidazole 500 mg tablet 500 mg PO UD Patient Comments: for pre op and have instructions Rx Instructions: Take 1 tablet at 1pm, 2pm, 7pm day before surgery meclizine 25 mg tablet 25 mg PO UD PRN (Reason: motion sickness) lorazepam 1 mg tablet 0.5 mg PO UD PRN (Reason: vertigo) Rx Instructions: Take 1 tab [address] scan; may repeat dose immediately prior to CT if symptoms occur neomycin 500 mg tablet 500 mg PO UD Patient Comments: for pre op and have instructions. Rx Instructions: 500 mg orally Take 1 tab at 1pm, 2pm, 7pm the day before surgery; Trulicity 1.5 mg/0.5 mL pen injector 1.5 mg SUBCUT WK Patient Comments: wednesdays amlodipine 5 mg tablet 5 mg PO QAM allopurinol 100 mg tablet 100 mg PO QPM Rx Instructions: take with a meal No Action buspirone 5 mg tablet 5 mg PO TID Qty: 270 1RF Discharge Orders: Discharge Order (Routine); Ordered 07/15/24 Ordered By: Calvin Em/Other Patient Handouts: Low-Fiber Diet, DVT Post Op Prevention Admission Data Admit Date/Time: 07/11/24 12:07 Attending Provider: Yan Wilson Admit Provider: Yan Wilson Primary Care Provider: Krystal Jung Other Providers: Kaushal Huerta Other Interventions: Discharge Summary Assessment (RN) Last Done: 07/15/24 10:13 Supervising Physician Co-Signing Physician Notes I personally examined the patient and verified all escalona points of history and exam, discussed case, and agree with decision making with Dr Bergman feeling good. No complaints. Pain under control. Clear liquids going well. Vitals noted, in general she is awake and alert pleasant no distress. HEENT normocephalic atraumatic mucous membranes moist. Breathing unlabored no accessory muscle use good effort. Skin without rashes. Or icterus. Status post colectomydoing well. Per primary service diabetespharmacy managing. Fortunately no ill effects from having taken Jardiance morning of surgery. Otherwise as above. Medically appears stable. Hospitalist team will sign off at this time. Available if we can be of any further assistance. Coding Level of Care Code 22619 IN/OBS DISCH 30 MIN/LESS Diagnoses Primary adenocarcinoma of transverse colon C18.4
== END 2024-07-15 11:19 | disposition home or self-care (01) | DRG 330 ==
LOC: ASU 05:59 → 3E 12:07

== ENCOUNTER 2024-10-28 14:32 | Observation (INO) ==
--- NOTE | 2024-10-28 14:45 | Emergency Department Note ---
Impression & Plan Acute hypoxemic respiratory failure, Acute hyponatremia, Nausea & vomiting, Vertigo ED Provider Note NAME: KASSANDRA WARNER AGE: 84 SEX: F : 1940 ARRIVES VIA: Ambulance INFORMANT: Patient, nursing report ED PROVIDER(S): Jesse Melgoza MD CHIEF COMPLAINT: Vertigo MEDICAL DECISION MAKING: Patient presents due to concern for vertigo. IV was established and blood work was obtained. No obvious nystagmus no carotid bruits and the patient has good [id number]. Patient does feel better than when she arrived. Known prior history but in light of the patient's age of the screening CT of the head was performed. Patient did have blood work performed IV was established and the patient did have a urinalysis ordered. The patient was ordered IV methylprednisolone 40 mg and IV fluids 500 cc. The patient was having recurrence of her vertigo but no longer had any nausea. Extremity pharmacy in order facilitate a low-dose of Compazine 2.5 mg IV. The patient was also given additional meclizine p.o. 25 mg. I was told by nursing the patient was having bouts of hypoxia to 87%. Patient denies any chest pains or shortness of breath. Chest x-ray and BioFire were ordered. CT head negative. Patient with a white count of 4.3 hemoglobin of 11.3 with a normal platelet count kidney function with creatinine 1.33. This is around the patient's baseline. Hyponatremia noted at 128 which is acute. This likely is contributory to the patient symptoms. Urine and serum osmolality ordered along with urine electrolytes. Urinalysis does not show evidence of obvious infection. BioFire negative. Chest x-ray by my read does not show obvious pneumonia. I did speak with the on-call hospital service ELVIRA Peralta PA-C and Dr. Zuñiga. Critical Care: I have personally spent 37 minutes of critical care time in direct management of this patient. This includes bedside care, interpretation of diagnostic studies, and testing, discussion with consultants, patient, and family members, and other require inpatient management activities. This 37 minutes is in excess of all separately billable procedures. Discussion w/ other healthcare providers: ELVIRA Peralta PA-C and Dr. Zuñiga inpatient medicine service Prior /Outside records reviewed: I reviewed part of a primary care visit from September 20, 2024. Patient diagnosed with a UTI at that time patient treated with Keflex. Patient also with lightheadedness and disequilibrium which is similar to symptoms for previous UTI and hospitalization. Patient reportedly took meclizine at the time which alleviated this. Differential diagnosis: Benign positional vertigo, dehydration, hypovolemia, anemia, infection, hypoglycemia, electrolyte abnormalities, arrhythmia, tox among others were considered. Diagnostics, as interpreted by me: ECG: Normal sinus rhythm, rate of 73, wide QRS, right bundle branch block pattern, no obvious ST elevations. Cardiac monitoring: An order was placed for continuous cardiac monitoring. The monitor shows a rate of 75 with sinus rhythm. Patient was placed on pulse oximetry Medical decision rules: None Imaging studies: I informally interpreted the patient's chest x-ray does not show obvious pneumonia or pneumothorax with formal report to follow. HPI: Patient presents due to concern for vertigo. She reports that when she got up to the bathroom around 4 AM this morning the patient did have vertigo to where she was spinning and was having difficulty with ambulation. The patient states that she took a meclizine around that time and was able to go back to sleep. The patient then was able to get up and go better day around 6:00 until she felt worse again around noon time. The patient did have 1 episode of vomiting and was having difficulty with walking which caused her to eventually present here now. Patient states that prior to arrival the patient did take meclizine and Zofran around 130. The patient does feel better than before. No head or neck pain. Patient does take chemotherapy for known history of colon cancer. Patient states that this is by mouth chemotherapy. Patient denies any chest pains or shortness of breath. No falls or trauma. No prior history of hearing loss but no acute changes with the vertigo. Patient denies any tinnitus. No ear pain or muffling of the ears. The patient denies any recent changes in elevation or underwater activities. PAST MEDICAL HISTORY: See Below PAST SURGICAL HISTORY: See Below SOCIAL HISTORY: See Below HOME MEDICATIONS: See Below ALLERGIES: See Below VITALS: See Below PHYSICAL EXAMINATION: GENERAL: NAD, non-toxic. Wearing glasses. EYE EXAM: Normal conjunctiva. PERRL, no anisocoria and EOM's grossly intact w/o pain. No nystagmus. OROPHARYNX: Moist mucus membranes, grossly normal dentition. NECK: Trachea midline, no stridor. Supple, no nuchal rigidity, no adenopathy, non-tender. No signs of meningismus. FROM of the neck with good chin to chest and neck extension. No obvious carotid bruits auscultated. LUNGS: Clear to auscultation. Normal chest wall mechanics. HEART: NSR, no MRG. ABDOMEN: Abdomen soft, non-tender, no masses, no rebound or guarding. BACK: No CVA TTP. SKIN: No rashes and no bruising. UPPER EXTREMITIES: Upper extremities are grossly normal. LOWER EXTREMITIES: Grossly normal, no edema. NEURO EXAM: A&O x3, cranial nerves II-XII grossly intact, normal speech, moves all 4 extremities. Good [id number], no drift and no sensory deficits. Past Med/Surg History Problem List (Updated 10/28/24 @ 20:07 by Jesse Melgoza MD) Vertigo (Acute) Nausea & vomiting (Acute) Acute hyponatremia (Acute) Acute hypoxemic respiratory failure (Acute) Type 2 diabetes mellitus Acute labyrinthitis Primary adenocarcinoma of transverse colon Anemia Mild tricuspid regurgitation Thyroid nodule Ambulatory dysfunction (Acute) Hypertriglyceridemia Gout Chronic low back pain Stage III chronic kidney disease Anxiety disorder due to medical condition (Acute) Arthritis (Acute) Atrial premature complex (Acute) Controlled type 2 diabetes with renal manifestation (Acute) Hearing loss (Acute) Obesity (Acute) HTN (hypertension) (Chronic) Medical History Thyroid nodule monitoring. Anemia History of gout Colon cancer dx apr 2024 GERD (gastroesophageal reflux disease) Ambulatory dysfunction no WC or walker - slow to ambulate. Stage III chronic kidney disease no specialist Hyperlipidemia HTN (hypertension) Arthritis Atrial premature complex no cards Anxiety hx of situational anxiety - taking buspirone from 10 years ago Diabetes mellitus, type 2 IDDM Vertigo triggered by laying supine. Surgical History H/O colectomy (07/11/24) Robotic Assisted transverse Colectomy, robotic mobilization of splenic flexure and hepatic flexure, intracorporeal anastomosis- Yan Wilson DO, FACS History of cataract surgery bilat History of colonoscopy History of tubal ligation Family History Father Cardiac disorder Myocardial infarction Mother Diabetes Cardiac disorder Hypertension Grandmother (Paternal) Breast cancer Other No family history of adverse response to anesthesia Denies family history of Ovarian cancer Prostate cancer Colorectal cancer Social History Smoking Status: Former smoker Tobacco Type: Cigarettes Age Started Using Tobacco: 16; Age Quit Using Tobacco: 62; packs per day: 1; Cigarettes Per Day: smoked 40 years; Second Hand Exposure: No; Do You Dip or Chew Tobacco: No; Hx Alcohol Use: Yes Hx Substance Use: No Preferred Language: German Communication Ability: Effective Visual Impairment: No Limitations Hearing Ability: Use of Hearing Aid Fish Cake Maker Required: No Beliefs That Will Affect Care: None marital status: Current Living Situation: Spouse current occupational status: retired current occupation: used to teach middle school, all subjects How many Children do You have: 1 Feels Safe at Home: Yes Childhood Exposure to Second-Hand Smoke: Yes Diet: regular caffeine: No during the past year weight has: decreased > 10 lbs Dental Care, Regularly: Yes Physical Activity Frequency: 1-2 Times per Week Seatbelt Use: always Sunscreen Use: No Assistive Devices: None Allergies Allergies Allergy/AdvReac Type Severity Reaction Status Date / Time No Known Allergies Allergy Verified 09/20/24 15:06 Home Meds Home Medications Medication Instructions Recorded Confirmed cholecalciferol (vitamin D3) 25 25 mcg PO QPM 01/02/20 10/28/24 mcg (1,000 unit) capsule cranberry extract 250 mg capsule 250 mg PO QAM 10/20/22 10/28/24 famotidine 20 mg tablet 20 mg PO QPM 10/20/22 10/28/24 amlodipine 5 mg tablet 5 mg PO QAM 01/29/24 10/28/24 pen needle, diabetic 31 gauge x 03/16/24 10/28/24 3/16" ferrous sulfate 325 mg (65 mg 325 mg PO DAILY 05/21/24 10/28/24 iron) tablet (FeroSul) dulaglutide 1.5 mg/0.5 mL 1.5 mg subcut WK 07/03/24 10/28/24 subcutaneous pen injector (Trulicity) lorazepam 1 mg tablet 0.5 mg PO UD PRN vertigo 07/03/24 10/28/24 meclizine 25 mg tablet 25 mg PO UD PRN motion sickness 07/03/24 10/28/24 capecitabine 500 mg tablet 2,000 mg PO BID 08/27/24 10/28/24 diclofenac sodium 1 % topical gel 2 g topical BID 08/27/24 10/28/24 loperamide 2 mg tablet (Imodium 2 mg PO Q6H PRN Diarrhea 08/27/24 10/28/24 A-D) ondansetron HCl 8 mg tablet 8 mg PO Q8H PRN Nausea And Vomiting 08/27/24 10/28/24 prochlorperazine maleate 10 mg 10 mg PO Q8 PRN as directed 10/28/24 10/28/24 tablet Previous Rx's Medication Instructions Recorded metformin 1,000 mg tablet 1,000 mg PO BID #180 tabs 03/22/24 metoprolol succinate 50 mg 50 mg PO BID #180 tabs 03/22/24 tablet,extended release 24 hr blood sugar diagnostic (DealstruckTouch #100 ea 04/09/24 Ultra Test strips) buspirone 5 mg tablet 5 mg PO TID #270 tabs 07/16/24 lisinopril 40 mg tablet 40 mg PO QAM #90 tabs 07/19/24 empagliflozin 25 mg tablet 25 mg PO QAM 90 days #90 tabs 08/07/24 (Jardiance) insulin glargine 100 unit/mL (3 54 unit (0.54 mL) subcut QAM #15 mL 08/10/24 mL) subcutaneous pen (Lantus Solostar U-100 Insulin) atorvastatin 40 mg tablet 40 mg PO DAILY #90 tabs 09/15/24 Results & Data (ED) Vital Signs Vital Signs - 24 hr 10/28/24 14:42 10/28/24 14:45 10/28/24 15:00 Temperature 36.3 C L Temperature Source Oral Pulse Rate 72 Pulse Rate [Right Finger] 72 Respiratory Rate 20 Respiratory Effort / Characteristics Non-Labored Spontaneous Respiratory Depth Normal Respiratory Pattern Regular Blood Pressure [Right Arm] 143/107 H Blood Pressure Mean [Right Arm] 119 Pulse Oximetry 95 Oxygen Delivery Method Room Air Sepsis Recent Fever Within 48 Hours No Sepsis New/Unexplained Change in Mental Status No Sepsis Action Taken by Nursing No Action Required 10/28/24 17:50 Temperature Temperature Source Pulse Rate 69 Pulse Rate [Right Finger] Respiratory Rate Respiratory Effort / Characteristics Respiratory Depth Respiratory Pattern Blood Pressure [Right Arm] Blood Pressure Mean [Right Arm] Pulse Oximetry Oxygen Delivery Method Sepsis Recent Fever Within 48 Hours Sepsis New/Unexplained Change in Mental Status Sepsis Action Taken by Custodial Medications Current Medication List: was personally reviewed by me Laboratory Data Attestation: I reviewed the patient's lab results. 10/28/24 16:13 10/28/24 14:51 Lab Results 10/28/24 10/28/24 10/28/24 Range/Units 14:51 15:03 16:06 WBC (4.8-10.8) K/ul RBC (4.20-5.40) M/uL Hgb (12.0-16.0) g/dl Hct (37.0-47.0) % MCV (80.0-100.0) fL MCH (25.0-34.0) pg MCHC (32.0-36.0) g/dL RDW Std Deviation (36.4-46.3) fL RDW Coeff of Rachid (11.5-14.5) % Plt Count (130-400) K/uL MPV (9.4-12.4) fL Immature Gran % (Auto) % Neut % (Auto) % Lymph % (Auto) % [place] % (Auto) % Eos % (Auto) % Baso % (Auto) % Neut # (Auto) (1.40-6.50) K/uL Lymph # (Auto) (1.20-3.40) K/uL [place] # (Auto) (0.11-0.59) K/uL Eos # (Auto) (0.00-0.50) K/uL Baso # (Auto) (0.00-0.20) K/uL Immature Gran # (Auto) (0.01-0.20) K/uL Anisocytosis Tear Drop Cells PT 11.2 (9.0-12.0) Seconds INR 1.0 (0.9-1.1) APTT 23 (21-31) Seconds PTT Ratio 0.9 Sodium 128 L (136-145) mmol/L Potassium 4.5 (3.5-5.1) mmol/L Chloride 101 (98-107) mmol/L Carbon Dioxide 17 L (21-32) mmol/L Anion Gap 10 (3-11) BUN 28 H (6-23) mg/dl Creatinine 1.33 H (0.6-1.2) mg/dl Est Cr Clr Drug Dosing 30.9 ml/min eGFR 39.45 BUN/Creatinine Ratio 21.1 H (10-20) Glucose 119 H (70-99(Fasting)) mg/dl Osmolality 284 (280-300) mOsm/kg Calcium 9.2 (8.6-10.3) mg/dl Total Bilirubin 1.5 H (0.2-1.0) mg/dl AST 23 (13-39) U/L ALT 10 (7-52) U/L Alkaline Phosphatase 51 (34-104) U/L Total Protein 7.4 (6.0-8.3) gm/dl Albumin 4.4 (3.4-5.0) gm/dl Globulin 3.0 (2.5-4.0) gm/dl Albumin/Globulin Ratio 1.5 (0.9-2) Urine Color Yellow Urine Appearance Clear (Clear) Urine pH 5.5 (4.5-7.5) Ur Specific [place] 1.021 (1.000-1.030) Urine Protein Negative (Negative) Urine Glucose (UA) 3+ H (Negative) Urine Ketones Negative (Negative) Urine Blood Negative (Negative) Urine Nitrite Negative (Negative) Urine Bilirubin Negative (Negative) Urine Urobilinogen Negative (Negative) Ur Leukocyte Esterase Negative (Negative) Urine Osmolality 523 (500-800) mOsm/kg Urine Sodium 83 mmol/L Urine Potassium 42.5 mmol/L Urine Chloride 110 mmol/L Adenovirus (PCR) (NotDetected) B. pertussis DNA (PCR) (NotDetected) B.parapertussis DNA PCR (NotDetected) C. pneumoniae DNA (PCR) (NotDetected) Coronavirus OC43 (PCR) (NotDetected) Coronavirus HKU1 (PCR) (NotDetected) Coronavirus 229E (PCR) (NotDetected) SARS-CoV-2 (PCR) (NotDetected) Coronavirus NL63 (PCR) (NotDetected) Human Metapneumovir PCR (NotDetected) Influenza Type A (PCR) (NotDetected) Influenza Type B (PCR) (NotDetected) M. pneumoniae (PCR) (NotDetected) Parainfluenza 1 (PCR) (NotDetected) Parainfluenza 2 (PCR) (NotDetected) Parainfluenza 3 (PCR) (NotDetected) Parainfluenza 4 (PCR) (NotDetected) RSV (PCR) (NotDetected) Entero/Rhino (PCR) (NotDetected) 10/28/24 10/28/24 Range/Units 16:13 18:20 WBC 4.38 L (4.8-10.8) K/ul RBC 3.51 L (4.20-5.40) M/uL Hgb 11.3 L (12.0-16.0) g/dl Hct 33.9 L (37.0-47.0) % MCV 96.6 (80.0-100.0) fL MCH 32.2 (25.0-34.0) pg MCHC 33.3 (32.0-36.0) g/dL RDW Std Deviation 71.8 H (36.4-46.3) fL RDW Coeff of Rachid 20.3 H (11.5-14.5) % Plt Count 141 (130-400) K/uL MPV 9.9 (9.4-12.4) fL Immature Gran % (Auto) 0.2 % Neut % (Auto) 62.8 % Lymph % (Auto) 24.0 % [place] % (Auto) 10.5 % Eos % (Auto) 1.6 % Baso % (Auto) 0.9 % Neut # (Auto) 2.75 (1.40-6.50) K/uL Lymph # (Auto) 1.05 L (1.20-3.40) K/uL [place] # (Auto) 0.46 (0.11-0.59) K/uL Eos # (Auto) 0.07 (0.00-0.50) K/uL Baso # (Auto) 0.04 (0.00-0.20) K/uL Immature Gran # (Auto) 0.01 (0.01-0.20) K/uL Anisocytosis Present Tear Drop Cells 1+ PT (9.0-12.0) Seconds INR (0.9-1.1) APTT (21-31) Seconds PTT Ratio Sodium (136-145) mmol/L Potassium (3.5-5.1) mmol/L Chloride (98-107) mmol/L Carbon Dioxide (21-32) mmol/L Anion Gap (3-11) BUN (6-23) mg/dl Creatinine (0.6-1.2) mg/dl Est Cr Clr Drug Dosing ml/min eGFR BUN/Creatinine Ratio (10-20) Glucose (70-99(Fasting)) mg/dl Osmolality (280-300) mOsm/kg Calcium (8.6-10.3) mg/dl Total Bilirubin (0.2-1.0) mg/dl AST (13-39) U/L ALT (7-52) U/L Alkaline Phosphatase (34-104) U/L Total Protein (6.0-8.3) gm/dl Albumin (3.4-5.0) gm/dl Globulin (2.5-4.0) gm/dl Albumin/Globulin Ratio (0.9-2) Urine Color Urine Appearance (Clear) Urine pH (4.5-7.5) Ur Specific [place] (1.000-1.030) Urine Protein (Negative) Urine Glucose (UA) (Negative) Urine Ketones (Negative) Urine Blood (Negative) Urine Nitrite (Negative) Urine Bilirubin (Negative) Urine Urobilinogen (Negative) Ur Leukocyte Esterase (Negative) Urine Osmolality (500-800) mOsm/kg Urine Sodium mmol/L Urine Potassium mmol/L Urine Chloride mmol/L Adenovirus (PCR) Not Detected (NotDetected) B. pertussis DNA (PCR) Not Detected (NotDetected) B.parapertussis DNA PCR Not Detected (NotDetected) C. pneumoniae DNA (PCR) Not Detected (NotDetected) Coronavirus OC43 (PCR) Not Detected (NotDetected) Coronavirus HKU1 (PCR) Not Detected (NotDetected) Coronavirus 229E (PCR) Not Detected (NotDetected) SARS-CoV-2 (PCR) Not Detected (NotDetected) Coronavirus NL63 (PCR) Not Detected (NotDetected) Human Metapneumovir PCR Not Detected (NotDetected) Influenza Type A (PCR) Not Detected (NotDetected) Influenza Type B (PCR) Not Detected (NotDetected) M. pneumoniae (PCR) Not Detected (NotDetected) Parainfluenza 1 (PCR) Not Detected (NotDetected) Parainfluenza 2 (PCR) Not Detected (NotDetected) Parainfluenza 3 (PCR) Not Detected (NotDetected) Parainfluenza 4 (PCR) Not Detected (NotDetected) RSV (PCR) Not Detected (NotDetected) Entero/Rhino (PCR) Not Detected (NotDetected) Administered Medications Discontinued Medications Sodium Chloride (Nss) 500 mls @ 999 mls/hr IV .Q31M ONE Stop: 10/28/24 15:24 Last Infusion: 10/28/24 16:26 Dose: Infused Documented By: Admin: 10/28/24 15:44 Dose: 999 mls/hr Documented By: SHARON Prochlorperazine 2.5 mg/ (Syringe) 5 mls @ 5 mls/min IV NOW STA Stop: 10/28/24 17:07 Last Admin: 10/28/24 17:30 Dose: 5 mls/min Documented By: SHARON Meclizine HCl (Meclizine Hcl 25 Mg Tab) 25 mg PO NOW STA Stop: 10/28/24 17:05 Last Admin: 10/28/24 17:30 Dose: 25 mg Documented By: SHARON Methylprednisolone (Methylprednisolone 125 Mg/2 Ml Vial) 40 mg IV NOW STA Stop: 10/28/24 14:55 Last Admin: 10/28/24 15:43 Dose: 40 mg Documented By: SHARON Imaging Data Radiologist's Impression: Head CT 10/28/24 14:54 CT head without contrast History: Vertigo Comparison: September 25, 2024 Technique: Using multidetector thin collimation helical acquisition technique, axial, coronal and sagittal CT images from the skull base to the vertex were obtained without intravenous contrast. Dose reduction techniques were achieved by using automatic exposure control and/or adjustment of mA and/or kV according to patient size and/or use of iterative reconstruction technique. Findings: No intracranial hemorrhage, mass-effect, or midline shift. The ventricles are proportionate to the cerebral sulci. The miller to white matter differentiation of the cerebral hemispheres is preserved. The basal cisterns are patent. The visualized paranasal sinuses are clear. Mastoid air cells are clear. Impression: No acute intracranial pathology. Electronically signed by Miguel Quintanilla 10-28-2024 5:09 PM Chest X-Ray 10/28/24 17:39 Chest radiograph, one view History: Hypoxia Comparison: September 25, 2024 Findings: Single AP view of the chest performed. No focal consolidation or pleural effusion. No pneumothorax. The cardiomediastinal silhouette is within normal limits. Normal pulmonary vascularity. No evidence for lymphadenopathy. No visualized bony or soft tissue abnormality. Impression: Normal chest radiograph Electronically signed by Miguel Quintanilla 10-28-2024 6:48 PM Discharge Plan Visit Data Chief Complaint: Vertigo Stated Complaint: VERTIGO ED Provider: Jesse Melgoza Discharge Problem: Acute hypoxemic respiratory failure, Acute hyponatremia, Nausea & vomiting, Vertigo Forms Stand Alone Forms: [employer] [facility] Prescriptions Prescriptions: No Action metformin 1,000 mg tablet 1,000 mg PO BID Qty: 180 3RF metoprolol succinate 50 mg tablet extended release 24 hr 50 mg PO BID Qty: 180 3RF (DME) OneTouch Ultra Test Strip See Rx Instructions .Route Qty: 100 5RF Rx Instructions: Test daily buspirone 5 mg tablet 5 mg PO TID Qty: 270 1RF lisinopril 40 mg tablet 40 mg PO QAM Qty: 90 3RF Jardiance 25 mg tablet 25 mg PO QAM 90 Days Qty: 90 4RF insulin glargine [Lantus Solostar U-100 Insulin] 100 unit/mL (3 mL) insulin pen 54 unit SQ QAM Qty: 15 3RF Rx Instructions: 54 units subcut daily; atorvastatin 40 mg tablet 40 mg PO DAILY Qty: 90 3RF cholecalciferol (vitamin D3) 25 mcg (1,000 unit) capsule 25 mcg PO QPM ferrous sulfate [FeroSul] 325 mg (65 mg iron) tablet 325 mg PO DAILY (DME) pen needle, diabetic 31 gauge x 3/16" needle See Rx Instructions .ROUTE .MEDSUPPLY Rx Instructions: As directed- Once Daily ondansetron HCl 8 mg tablet 8 mg PO Q8H PRN (Reason: Nausea And Vomiting) loperamide [Imodium A-D] 2 mg tablet 2 mg PO Q6H PRN (Reason: Diarrhea) diclofenac sodium 1 % gel 2 g topical BID Rx Instructions: apply to hands; for hand includes palm/fingers/back of hand capecitabine 500 mg tablet 2,000 mg PO BID Rx Instructions: On 2 weeks, off 1 week cranberry extract 250 mg capsule 250 mg PO QAM Rx Instructions: administer with a meal famotidine 20 mg tablet 20 mg PO QPM meclizine 25 mg tablet 25 mg PO UD PRN (Reason: motion sickness) lorazepam 1 mg tablet 0.5 mg PO UD PRN (Reason: vertigo) Rx Instructions: Take 1 tab [address] scan; may repeat dose immediately prior to CT if symptoms occur Trulicity 1.5 mg/0.5 mL pen injector 1.5 mg SUBCUT WK Patient Comments: wednesdays amlodipine 5 mg tablet 5 mg PO QAM prochlorperazine maleate 10 mg tablet 10 mg PO Q8 PRN (Reason: as directed) Referrals Referrals: Krystal Jung MD [Primary Care Provider] - Discharge Problem: Nausea & vomiting Qualifiers: Vomiting type: unspecified Qualified Code(s): R11.2 - Nausea with vomiting, unspecified
[2024-10-28 15:19] LABS: Appearance Urine Clear (Clear); Bilirubin Urine Negative (Negative); Blood Urine Negative (Negative); Color Urine Yellow; Glucose Urine UA 3+ (Negative); Ketones Urine Negative (Negative); Leukocyte Esterase Urine Negative (Negative); Nitrite Urine Negative (Negative); Protein Urine Negative (Negative); Specific Gravity Urine 1.021 (1.000-1.030); Urobilinogen Urine Negative (Negative); pH Urine 5.5 (4.5-7.5)
[2024-10-28 15:39] LABS: Partial Thromboplastin Ratio 0.9; Partial Thromboplastin Time 23 Seconds (21-31); Prothrombin Time 11.2 Seconds (9.0-12.0)
[2024-10-28] MEDS: methylPREDNISolone 125 MG/2 ML VIAL IV STA (15:43)
[2024-10-28] MEDS: SODIUM CHLORIDE 0.9% 500 ML IV ONE (15:44)
[2024-10-28 16:37] LABS: Basophils # (auto) 0.04 K/uL (0.00-0.20); Basophils % (auto) 0.9 %; Eosinophils # (auto) 0.07 K/uL (0.00-0.50); Eosinophils % (auto) 1.6 %; Hematocrit (blood only) 33.9 % (37.0-47.0); Hemoglobin 11.3 g/dl (12.0-16.0); Immature Granulocytes # (auto) 0.01 K/uL (0.01-0.20); Immature Granulocytes % (auto) 0.2 %; Lymphocytes # (auto) 1.05 K/uL (1.20-3.40); Mean Corpuscular Hemoglobin 32.2 pg (25.0-34.0); Mean Corpuscular Hgb Conc 33.3 g/dL (32.0-36.0); Mean Corpuscular Volume 96.6 fL (80.0-100.0); Mean Platelet Volume 9.9 fL (9.4-12.4); Monocytes # (auto) 0.46 K/uL (0.11-0.59); Monocytes % (auto) 10.5 %; Neutrophils # (auto) 2.75 K/uL (1.40-6.50); Neutrophils % (auto) 62.8 %; Platelet Count 141 K/uL (130-400); RDW Coefficient of Variation 20.3 % (11.5-14.5); RDW Standard Deviation 71.8 fL (36.4-46.3); Red Blood Count 3.51 M/uL (4.20-5.40); White Blood Count 4.38 K/ul (4.8-10.8)
[2024-10-28 17:00] LABS: Anisocytosis Present; Tear Drop Cells 1+
[2024-10-28 17:07] LABS: Albumin Globulin Ratio 1.5 (0.9-2); Albumin Level 4.4 gm/dl (3.4-5.0); BUN Creatinine Ratio 21.1 (10-20); Bilirubin,Total 1.5 mg/dl (0.2-1.0); Calcium 9.2 mg/dl (8.6-10.3); Creatinine Clr Calc Pharmacy 30.9 ml/min; Total Protein 7.4 gm/dl (6.0-8.3)
--- NOTE | 2024-10-28 17:09 | CT Scan Report ---
CT head without contrast History: Vertigo Comparison: September 25, 2024 Technique: Using multidetector thin collimation helical acquisition technique, axial, coronal and sagittal CT images from the skull base to the vertex were obtained without intravenous contrast. Dose reduction techniques were achieved by using automatic exposure control and/or adjustment of mA and/or kV according to patient size and/or use of iterative reconstruction technique. Findings: No intracranial hemorrhage, mass-effect, or midline shift. The ventricles are proportionate to the cerebral sulci. The miller to white matter differentiation of the cerebral hemispheres is preserved. The basal cisterns are patent. The visualized paranasal sinuses are clear. Mastoid air cells are clear. Impression: No acute intracranial pathology. Electronically signed by Miguel Quintanilla 10-28-2024 5:09 PM
[2024-10-28 17:16] LABS: Potassium 4.5 mmol/L (3.5-5.1)
--- NOTE | 2024-10-28 17:27 | Electrocardiogram Report ---
Test Reason : Blood Pressure : */* mmHG Vent. Rate : 73 BPM Atrial Rate : 73 BPM P-R Int : 160 ms QRS Dur : 122 ms QT Int : 424 ms P-R-T Axes : 61 87 6 degrees QTcB Int : 467 ms Normal sinus rhythm Right bundle branch block Abnormal ECG When compared with ECG of 25-Jun-2024 09:55, Premature atrial complexes are no longer Present Confirmed by Jamal Cary ([id number]) on 10/28/2024 5:26:52 PM Referred By: REFERRED SELF Confirmed By: Jamal Cary
[2024-10-28] MEDS: MECLIZINE HCL 25 MG TAB PO STA (17:30)
[2024-10-28] MEDS: PROCHLORPERAZINE IV STA (17:30)
--- NOTE | 2024-10-28 18:49 | XRay Report ---
Chest radiograph, one view History: Hypoxia Comparison: September 25, 2024 Findings: Single AP view of the chest performed. No focal consolidation or pleural effusion. No pneumothorax. The cardiomediastinal silhouette is within normal limits. Normal pulmonary vascularity. No evidence for lymphadenopathy. No visualized bony or soft tissue abnormality. Impression: Normal chest radiograph Electronically signed by Miguel Quintanilla 10-28-2024 6:48 PM
[2024-10-28 18:52] LABS: Urine Potassium 42.5 mmol/L
[2024-10-28] MEDS ORDERED: LORazepam 0.5 MG TAB PO PRN (18:56)
[2024-10-28] MEDS ORDERED: NON-FORMULARY MEDICATION (Dulaglutide [Trulicity] 1.5 mg/0.5 mL pen injector) SQ SCH (19:00)
--- NOTE | 2024-10-28 19:07 | History & Physical Report ---
Date of Service October 28, 2024 Assessment & Plan (1) Acute labyrinthitis: Plan: With vertigo and nausea. Scheduled meclizine dosing ordered along with parenteral steroid therapy. If symptoms persist, she will have brain MRI scan to rule out midbrain CVA. Supportive care (2) HTN (hypertension): Plan: Stable. Continue current medical management (3) Stage III chronic kidney disease: Plan: Monitor intake and output. Serial labs (4) Type 2 diabetes mellitus: Plan: ADA diet. Sliding scale coverage. Continue basal Lantus therapy Plan Hopefully home tomorrowOctober 29 History of Present Illness Chief Complaint: Vertigo Primary Care Provider: Krystal Jung MD 84-year-old white female with a past history of vertigo from acute labyrinthitis. She developed symptoms again this morning associated with imbalance and nausea. She came to the ED for evaluation. Her symptoms have nearly abated while she is lying still. Head CT scan negative for any significant findings. If her symptoms persist she probably will need a brain MRI scan to rule out midbrain CVA. For the time being, will place in observation with telemetry and administer scheduled dosing of meclizine along with parenteral steroid therapy. Glucose will probably increase somewhat since she has a history of diabetes. Sliding scale coverage ordered. Hopefully she can go home tomorrowOctober 29. She denies palpitations, chest pain, syncope Allergies Allergy/AdvReac Type Severity Reaction Status Date / Time No Known Allergies Allergy Verified 09/20/24 15:06 Home Medications Medication Instructions Recorded Confirmed Type cholecalciferol (vitamin D3) 25 25 mcg PO QPM 01/02/20 10/28/24 History mcg (1,000 unit) capsule cranberry extract 250 mg capsule 250 mg PO QAM 10/20/22 10/28/24 History famotidine 20 mg tablet 20 mg PO QPM 10/20/22 10/28/24 History amlodipine 5 mg tablet 5 mg PO QAM 01/29/24 10/28/24 History pen needle, diabetic 31 gauge x 03/16/24 10/28/24 History 3/16" metformin 1,000 mg tablet 1,000 mg PO BID #180 tabs 03/22/24 10/28/24 Rx metoprolol succinate 50 mg 50 mg PO BID #180 tabs 03/22/24 10/28/24 Rx tablet,extended release 24 hr blood sugar diagnostic (OneTouch #100 ea 04/09/24 10/28/24 Rx Ultra Test strips) ferrous sulfate 325 mg (65 mg 325 mg PO DAILY 05/21/24 10/28/24 History iron) tablet (FeroSul) dulaglutide 1.5 mg/0.5 mL 1.5 mg subcut WK 07/03/24 10/28/24 History subcutaneous pen injector (Trulicity) lorazepam 1 mg tablet 0.5 mg PO UD PRN vertigo 07/03/24 10/28/24 History meclizine 25 mg tablet 25 mg PO UD PRN motion sickness 07/03/24 10/28/24 History buspirone 5 mg tablet 5 mg PO TID #270 tabs 07/16/24 10/28/24 Rx lisinopril 40 mg tablet 40 mg PO QAM #90 tabs 07/19/24 10/28/24 Rx empagliflozin 25 mg tablet 25 mg PO QAM 90 days #90 tabs 08/07/24 10/28/24 Rx (Jardiance) insulin glargine 100 unit/mL (3 54 unit (0.54 mL) subcut QAM #15 mL 08/10/24 10/28/24 Rx mL) subcutaneous pen (Lantus Solostar U-100 Insulin) capecitabine 500 mg tablet 2,000 mg PO BID 08/27/24 10/28/24 History diclofenac sodium 1 % topical gel 2 g topical BID 08/27/24 10/28/24 History loperamide 2 mg tablet (Imodium 2 mg PO Q6H PRN Diarrhea 08/27/24 10/28/24 History A-D) ondansetron HCl 8 mg tablet 8 mg PO Q8H PRN Nausea And Vomiting 08/27/24 10/28/24 History atorvastatin 40 mg tablet 40 mg PO DAILY #90 tabs 09/15/24 10/28/24 Rx prochlorperazine maleate 10 mg 10 mg PO Q8 PRN as directed 10/28/24 10/28/24 History tablet Past Med/Surg History Problem List (Updated 10/28/24 @ 19:05 by Rikki Zñuiga MD) Type 2 diabetes mellitus Acute labyrinthitis Primary adenocarcinoma of transverse colon Anemia Mild tricuspid regurgitation Thyroid nodule Ambulatory dysfunction (Acute) Hypertriglyceridemia Gout Chronic low back pain Stage III chronic kidney disease Anxiety disorder due to medical condition (Acute) Arthritis (Acute) Atrial premature complex (Acute) Controlled type 2 diabetes with renal manifestation (Acute) Hearing loss (Acute) Obesity (Acute) HTN (hypertension) (Chronic) Medical History Thyroid nodule monitoring. Anemia History of gout Colon cancer dx apr 2024 GERD (gastroesophageal reflux disease) Ambulatory dysfunction no WC or walker - slow to ambulate. Stage III chronic kidney disease no specialist Hyperlipidemia HTN (hypertension) Arthritis Atrial premature complex no cards Anxiety hx of situational anxiety - taking buspirone from 10 years ago Diabetes mellitus, type 2 IDDM Vertigo triggered by laying supine. Surgical History H/O colectomy (07/11/24) Robotic Assisted transverse Colectomy, robotic mobilization of splenic flexure and hepatic flexure, intracorporeal anastomosis- Yan Wilson DO, FACS History of cataract surgery bilat History of colonoscopy History of tubal ligation Family History Father Cardiac disorder Myocardial infarction Mother Diabetes Cardiac disorder Hypertension Grandmother (Paternal) Breast cancer Other No family history of adverse response to anesthesia Denies family history of Ovarian cancer Prostate cancer Colorectal cancer Social History Smoking Status: Former smoker Tobacco Type: Cigarettes Age Started Using Tobacco: 16; Age Quit Using Tobacco: 62; packs per day: 1; Cigarettes Per Day: smoked 40 years; Second Hand Exposure: No; Do You Dip or Chew Tobacco: No; Hx Alcohol Use: Yes Hx Substance Use: No Preferred Language: Lao Communication Ability: Effective Visual Impairment: No Limitations Hearing Ability: Use of Hearing Aid Staff Midwife/Apprenticeship Director Required: No Beliefs That Will Affect Care: None marital status: Current Living Situation: Spouse current occupational status: retired current occupation: used to teach middle school, all subjects How many Children do You have: 1 Feels Safe at Home: Yes Childhood Exposure to Second-Hand Smoke: Yes Diet: regular caffeine: No during the past year weight has: decreased > 10 lbs Dental Care, Regularly: Yes Physical Activity Frequency: 1-2 Times per Week Seatbelt Use: always Sunscreen Use: No Assistive Devices: None Review of Systems 2 Review of Systems: Constitutionalno fever or chills ENTno blurred vision, no double vision, no epistaxis, no sore throat Respiratoryno cough, no wheezing, no shortness of breath Cardiacno palpitations, no chest pain, no syncope [place] nausea, vomiting, diarrhea, melena, hematochezia GUno urinary retention, no urinary incontinence, no dysuria, no hematuria Musculoskeletalno joint pain, no muscle tenderness Skinno bruising, no rashes, no pruritus Neurono isolated weakness, no paresthesia. Vertigo symptoms have nearly abated while lying still Psychno depression, no anxiety Physical Exam 2 Physical Exam: General-alert and oriented x3, no fever, no chills HEENT-head atraumatic and normocephalic, pupils equal and reactive to light, extraocular muscles intact. Left beating nystagmus with left lateral gaze Neck-no lymphadenopathy or thyromegaly, trachea midline Chest-clear to auscultation. No rales, wheezing or rhonchi Cardiac-regular rate and rhythm, normal S1 and S2 Abdomen-normal bowel sounds, no hepatosplenomegaly Extremities-no cyanosis, clubbing, or edema Neuro-cranial nerves II through XII intact, motor and sensory function within normal limits, strength symmetrical, no focal deficits Psych-normal affect, normal mood Results & Data Results & Data Vital Signs (Past 12 Hours) Vital Signs Temp Pulse Pulse Resp BP Pulse Ox O2 Del Method 10/28/24 17:50 69 10/28/24 15:00 72 10/28/24 14:42 36.3 C L 72 20 143/107 H 95 Room Air Laboratory Results 10/28/24 16:13 10/28/24 14:51 Code Status & VTE Plan Code Status Full code VTE Prophylaxis Plan VTE Prophylaxis will be ordered: Yes PG Care Time/CCT Total # of Minutes Spent Total Time Spent with Patient: Total time spent is greater than 50% in coordination of care (as documented) at patient's floor/unit and/or counseling patient: Coding Level of Care Code 53421 INT INP/OBS CARE 3/75MIN Diagnoses Acute labyrinthitis H83.09 HTN (hypertension) I10 Stage III chronic kidney disease N18.3 Type 2 diabetes mellitus E11.9
[2024-10-28 19:23] LABS: Adenovirus PCR Not Detected (NotDetected); Bordetella parapertussis PCR Not Detected (NotDetected); Bordetella pertussis PCR Not Detected (NotDetected); Chlamydia pneumoniae PCR Not Detected (NotDetected); Coronavirus 229E PCR Not Detected (NotDetected); Coronavirus CoV-2 (COVID19)PCR Not Detected (NotDetected); Coronavirus HKU1 PCR Not Detected (NotDetected); Coronavirus NL63 PCR Not Detected (NotDetected); Coronavirus OC43PCR Not Detected (NotDetected); Human Metapneumovirus PCR Not Detected (NotDetected); Influenza A PCR Not Detected (NotDetected); Influenza B PCR Not Detected (NotDetected); Mycoplasma pneumoniae PCR Not Detected (NotDetected); Parainfluenza Virus 1 PCR Not Detected (NotDetected); Parainfluenza Virus 2 PCR Not Detected (NotDetected); Parainfluenza Virus 3 PCR Not Detected (NotDetected); Parainfluenza Virus 4 PCR Not Detected (NotDetected); Respiratory Syncytial VirusPCR Not Detected (NotDetected); Rhinovirus/Enterovirus PCR Not Detected (NotDetected)
[2024-10-28] MEDS ORDERED: methylPREDNISolone 10 mg/mL (For Ped Dose < 7mg) IV SCH (21:17)
[2024-10-28] MEDS ORDERED: GLUCAGON FOR INJ 1 MG VIAL SQ PRN ×2 (21:17→21:30)
[2024-10-28] MEDS ORDERED: GLUCOSE 10 TAB/TUBE PO PRN ×2 (21:17→21:30)
[2024-10-28] MEDS ORDERED: ONDANSETRON INJ 2 MG/ML 2 ML VIAL IV PRN (21:17)
[2024-10-28] MEDS ORDERED: DEXTROSE 50% 50 ML SYRINGE IV PRN ×2 (21:17→21:30)
[2024-10-28] MEDS ORDERED: CARBOHYDRATES FOR HYPOGLYCEMIA PO PRN ×2 (21:17→21:30)
[2024-10-28] MEDS ORDERED: GLUCOSE 40% GEL 15 GM TUBE PO PRN ×2 (21:17→21:30)
[2024-10-28] MEDS: [UNRECOGNIZED DRUG - REMARK] SCH (21:40)
[2024-10-28] MEDS: INSULIN ASPART PER UNIT CHARGE SC SCH (21:48)
[2024-10-28] MEDS: CAPECITABINE PO SCH (21:48)
[2024-10-28] MEDS: HEPARIN SOD 5,000 UNIT/0.5 ML VIAL SQ SCH (21:49)
[2024-10-28] MEDS: METOPROLOL SUCC 50MG EXT REL TAB PO SCH (21:50)
[2024-10-28] MEDS: CHOLECALCIFEROL 25 MCG (1000 UNITS) TAB PO SCH (21:50)
[2024-10-28] MEDS: busPIRone 5 MG TAB PO SCH (21:50)
[2024-10-28] MEDS: MECLIZINE 12.5 MG TAB PO SCH (21:51)
[2024-10-28] MEDS: FAMOTIDINE 20 MG TAB PO SCH (21:52)
[2024-10-28] MEDS: methylPREDNISolone 40 MG in SYRINGE 0 ML IV SCH (22:24)
--- NOTE | 2024-10-29 07:21 | Hospitalist Progress Note ---
Date of Service October 29, 2024 Assessment & Plan (1) Acute labyrinthitis: (2) Acute hyponatremia: (3) Stage III chronic kidney disease: (4) Type 2 diabetes mellitus: Plan 84-year-old female presents to the emergency department with vertigo. She has a history of diabetes and is currently under oral treatment for colon cancer. Did endorse vertiginous symptoms. Other than hyponatremia on presentation significant abnormalities. CT scan of head is negative. #Labyrinthitis/vertigo patient is on meclizine therapy there is no intracranial changes seen on CT head treated the symptoms #Hyponatremia, patient has normal serum and urine osmolality but a high urine sodium. This could be consistent with SIADH check a cortisol and TSH level #Diabetes patient's Trulicity metformin will be held she is on basal bolus insulin therapy #Hypertension patient continues to take amlodipine, lisinopril, metoprolol #Colon cancer continue capecitabine once discharged Admission and Anticipated Discharge Date Admission Date: October 28, 2024 Results & Data Results & Data Vital Signs (Past 12 Hours) Vital Signs Temp Pulse Pulse Resp BP BP Pulse Ox 10/29/24 07:00 67 10/29/24 03:38 98.1 F 72 16 105/57 L 92 10/28/24 22:57 97.5 F L 61 16 102/64 93 10/28/24 21:21 71 10/28/24 21:20 10/28/24 21:09 97.5 F L 76 16 145/71 H 94 O2 Del Method 10/29/24 07:00 10/29/24 03:38 Room Air 10/28/24 22:57 Room Air 10/28/24 21:21 10/28/24 21:20 Room Air 10/28/24 21:09 Room Air PG Care Time/CCT Total # of Minutes Spent Total Time Spent with Patient: Total time spent is greater than 50% in coordination of care (as documented) at patient's floor/unit and/or counseling patient: Coding Diagnoses Acute labyrinthitis H83.09 Acute hyponatremia E87.1 Stage III chronic kidney disease N18.3 Type 2 diabetes mellitus E11.9
[2024-10-29 07:38] VITALS: O2SAT 93
[2024-10-29] MEDS: LANTUS PER UNIT CHARGE SC SCH (08:57)
[2024-10-29] MEDS: ATORVASTATIN 40 MG TAB PO SCH (08:58)
[2024-10-29] MEDS: FERROUS SULFATE 325 MG TAB PO SCH (08:58)
[2024-10-29] MEDS: amLODIPine BESYLATE 5 MG TAB PO SCH (08:58)
[2024-10-29] MEDS: lisinopril 40 MG TAB PO SCH (08:59)
[2024-10-29 11:01] VITALS: BP 114/68; PULSE 79; RESP 16; TEMP 97.5
[2024-10-29 11:07] LABS: BUN Creatinine Ratio 22.6 (10-20); Calcium 9.1 mg/dl (8.6-10.3); Creatinine Clr Calc Pharmacy 26.4 ml/min; Potassium 5.9 mmol/L (3.5-5.1)
[2024-10-29 11:53] LABS: BUN Creatinine Ratio 21.1 (10-20); Calcium 9.4 mg/dl (8.6-10.3); Creatinine Clr Calc Pharmacy 26.1 ml/min; Potassium 5.8 mmol/L (3.5-5.1)
[2024-10-29 13:56] LABS: Thyroid Stimulating Hormone 0.423 uIu/ml (0.300-4.500)
--- NOTE | 2024-10-29 14:06 | Discharge Summary ---
Discharge Summary Date of Service October 29, 2024 Principal Dx & Hospital Course #1 = Principal Diagnosis (1) Acute labyrinthitis: (2) Acute hyponatremia: (3) Stage III chronic kidney disease: (4) Type 2 diabetes mellitus: Plan 84-year-old female presents to the emergency department with vertigo. She has a history of diabetes and is currently under oral treatment for colon cancer. Did endorse vertiginous symptoms. Other than hyponatremia on presentation significant abnormalities. CT scan of head is negative. #Labyrinthitis/vertigo patient has had complete resolution of symptoms on meclizine therapy. there is no intracranial changes seen on CT head renewed home Rx for meclizine #Hyponatremia, patient has normal serum and urine osmolality but a high urine sodium. This could be consistent with SIADH, good improvement of sodium to 133 morning cortisol is slightly low may have out pt recheck as was at 10 am. Educated on avoidance of excess water #Diabetes patient's Trulicity metformin #Hypertension patient continues to take amlodipine, lisinopril, metoprolol #Colon cancer continue capecitabine once discharged Notes For Next Care Provider checked random cortisol was a bit low, but not true am sample, consider recheck or cosyntropin stim Admission HPI Per Admitting Provider 84-year-old white female with a past history of vertigo from acute labyrinthitis. She developed symptoms again this morning associated with imbalance and nausea. She came to the ED for evaluation. Her symptoms have nearly abated while she is lying still. Head CT scan negative for any significant findings. If her symptoms persist she probably will need a brain MRI scan to rule out midbrain CVA. For the time being, will place in observation with telemetry and administer scheduled dosing of meclizine along with parenteral steroid therapy. Glucose will probably increase somewhat since she has a history of diabetes. Sliding scale coverage ordered. Hopefully she can go home tomorrow, October 29. She denies palpitations, chest pain, syncope Discharge Exam awake and alert no nystagmus or reproducible symptoms Discharge Plan Discharge Items Patient Disposition: Home - Self-Care Reason For Visit: VERTIGO,ACUTE LABYRINTHITIS Discharge Diagnosis: Vertigo low sodium Activity: Resume your previous activity Non-emergency contact: Primary Care Provider Call non-emergency contact if: your symptoms worsen Follow-up/Referrals: Thal,Krystal A., MD [Primary Care Provider] - Diet: Carb Consistent or DM2 Addtl Attending Provider Instructions: Please follow your usual interventions for your vertigo, upon discharge take one additional meclizine in the evening of 10/29/24, if you feel normal in the am of 10/30, you dont need to take any more, if you are with some symptoms take additonal meclizine every 8 hours until symptoms are gone your blood sodium has risen to near normal, at this point I would avoid excess water intake but have some water and some other liquids so as not to overly dilute your sodium down with just plain water Pending Studies at Discharge: No Stand-Alone Forms: [facility] Tempered Mind, Smoking Cessation Medications and DC Order Prescriptions: Continued metformin 1,000 mg tablet 1,000 mg PO BID Qty: 180 3RF metoprolol succinate 50 mg tablet extended release 24 hr 50 mg PO BID Qty: 180 3RF (DME) OneTouch Ultra Test Strip See Rx Instructions .Route Qty: 100 5RF Rx Instructions: Test daily buspirone 5 mg tablet 5 mg PO TID Qty: 270 1RF lisinopril 40 mg tablet 40 mg PO QAM Qty: 90 3RF Jardiance 25 mg tablet 25 mg PO QAM 90 Days Qty: 90 4RF insulin glargine [Lantus Solostar U-100 Insulin] 100 unit/mL (3 mL) insulin pen 54 unit SQ QAM Qty: 15 3RF Rx Instructions: 54 units subcut daily; atorvastatin 40 mg tablet 40 mg PO DAILY Qty: 90 3RF cholecalciferol (vitamin D3) 25 mcg (1,000 unit) capsule 25 mcg PO QPM ferrous sulfate [FeroSul] 325 mg (65 mg iron) tablet 325 mg PO DAILY (DME) pen needle, diabetic 31 gauge x 3/16" needle See Rx Instructions .ROUTE .MEDSUPPLY Rx Instructions: As directed- Once Daily ondansetron HCl 8 mg tablet 8 mg PO Q8H PRN (Reason: Nausea And Vomiting) loperamide [Imodium A-D] 2 mg tablet 2 mg PO Q6H PRN (Reason: Diarrhea) diclofenac sodium 1 % gel 2 g topical BID Rx Instructions: apply to hands; for hand includes palm/fingers/back of hand capecitabine 500 mg tablet 2,000 mg PO BID Rx Instructions: On 2 weeks, off 1 week cranberry extract 250 mg capsule 250 mg PO QAM Rx Instructions: administer with a meal famotidine 20 mg tablet 20 mg PO QPM lorazepam 1 mg tablet 0.5 mg PO UD PRN (Reason: vertigo) Rx Instructions: Take 1 tab [address] scan; may repeat dose immediately prior to CT if symptoms occur Trulicity 1.5 mg/0.5 mL pen injector 1.5 mg SUBCUT WK Patient Comments: wednesdays amlodipine 5 mg tablet 5 mg PO QAM prochlorperazine maleate 10 mg tablet 10 mg PO Q8 PRN (Reason: as directed) meclizine 25 mg tablet 25 mg PO UD PRN (Reason: motion sickness/vertigo) Qty: 20 0RF Rx Instructions: take every 8 hours until symptoms resolve Admission Data Admit Date/Time: 10/28/24 18:55 Attending Provider: Hussein Tapia Admit Provider: Rikki Zuñiga Primary Care Provider: Krystal Jung Other Providers: Rikki Zuñiga Hospital Stay Data Consultations 10/28/24 18:12 ED Decision to Admit Stat Diagnostic Imagining Performed 10/28/24 14:54 CT head/brain wo con Stat Pending Results Patient Have Any Pending Studies at Discharge: No Discharge Instructions Given to Patient (Per Discharging Provider) Please follow your usual interventions for your vertigo, upon discharge take one additional meclizine in the evening of 10/29/24, if you feel normal in the am of 10/30, you dont need to take any more, if you are with some symptoms take additonal meclizine every 8 hours until symptoms are gone your blood sodium has risen to near normal, at this point I would avoid excess water intake but have some water and some other liquids so as not to overly dilute your sodium down with just plain water Total Time Total Time Spent Total Time Spent (In Minutes): It required greater than 30 minutes to prepare this patient for discharge. Coding Level of Care Code 75592 INP/OBS DISCH >30 MIN Diagnoses Acute labyrinthitis H83.09 Acute hyponatremia E87.1 Stage III chronic kidney disease N18.3 Type 2 diabetes mellitus E11.9
== END 2024-10-29 16:11 | disposition home or self-care (01) ==
LOC: ED 14:32 → INTOOBSV 18:55 → 2N 18:55 → SUATTDRO 18:55 → 2N 20:54

== ENCOUNTER 2024-11-01 08:25 | Observation (INO) ==
[2024-11-01] MEDS: MECLIZINE HCL 25 MG TAB PO STA (09:07)
[2024-11-01] MEDS: ONDANSETRON INJ 2 MG/ML 2 ML VIAL IV STA (09:07)
[2024-11-01] MEDS: SODIUM CHLORIDE 0.9% 500 ML IV ONE (09:07)
--- NOTE | 2024-11-01 09:11 | CT Scan Report ---
CT head/brain wo con CLINICAL HISTORY: vertigo, dizzy. TECHNIQUE: Multiple axial CT images of the head were obtained without contrast. A dose lowering tech nique was utilized adhering to the principles of ALARA. CT DOSE: 1501.36 mGy.cm COMPARISON: 10/28/2024 FINDINGS: No intracranial hemorrhage seen. No mass effect, midline shift, or hydrocephalus. There are stable mild chronic small vessel ischemic changes. Visualized paranasal sinuses and mastoid air cell s are clear. No skull fracture seen. IMPRESSION: No acute findings. ACT 112: Negative or not required by law. The above report was generated using voice recognition software. It may contain grammatical, syntax o r spelling errors. Electronically signed by: Yan Campbell M.D. 11/01/2024 9:10 AM
--- NOTE | 2024-11-01 09:22 | Emergency Department Note ---
ED Provider Note History of Present Illness Chief Complaint: Vertigo Stated Complaint: VERTIGO, BLURRED VISION Time Seen by Provider: 11/01/24 08:37 Source: patient and family Mode of arrival: ambulatory Limitations: no limitations Patient is an 84-year-old female who presents to the emergency department with complaints of vertigo. Patient states that she was seen here in the emergency department on Tuesday for same symptoms, admitted to the hospital and then discharged yesterday after she was feeling better. Patient states that last evening and into this morning her symptoms returned. Patient notes that she feels like the room is spinning and has intermittent nausea. Patient states that she has been taking the meclizine as prescribed and notes that it helps some, but has not taken her symptoms away. Home Medications Medication Instructions Recorded Confirmed Type cholecalciferol (vitamin D3) 25 25 mcg PO QPM 01/02/20 11/01/24 History mcg (1,000 unit) capsule cranberry extract 250 mg capsule 250 mg PO QAM 10/20/22 11/01/24 History famotidine 20 mg tablet 20 mg PO QPM 10/20/22 11/01/24 History amlodipine 5 mg tablet 5 mg PO QAM 01/29/24 11/01/24 History pen needle, diabetic 31 gauge x 03/16/24 10/30/24 History 3/16" metformin 1,000 mg tablet 1,000 mg PO BID #180 tabs 03/22/24 11/01/24 Rx blood sugar diagnostic (OneTouch #100 ea 04/09/24 10/30/24 Rx Ultra Test strips) ferrous sulfate 325 mg (65 mg 325 mg PO DAILY 05/21/24 11/01/24 History iron) tablet (FeroSul) dulaglutide 1.5 mg/0.5 mL 1.5 mg subcut WK 07/03/24 11/01/24 History subcutaneous pen injector (Trulicity) lorazepam 1 mg tablet 0.5 mg PO UD PRN vertigo 07/03/24 11/01/24 History buspirone 5 mg tablet 5 mg PO TID #270 tabs 07/16/24 11/01/24 Rx lisinopril 40 mg tablet 40 mg PO QAM #90 tabs 07/19/24 11/01/24 Rx empagliflozin 25 mg tablet 25 mg PO QAM 90 days #90 tabs 08/07/24 11/01/24 Rx (Jardiance) insulin glargine 100 unit/mL (3 54 unit (0.54 mL) subcut QAM #15 mL 08/10/24 11/01/24 Rx mL) subcutaneous pen (Lantus Solostar U-100 Insulin) capecitabine 500 mg tablet 2,000 mg PO BID 08/27/24 11/01/24 History diclofenac sodium 1 % topical gel 2 g topical BID 08/27/24 11/01/24 History loperamide 2 mg tablet (Imodium 2 mg PO Q6H PRN Diarrhea 08/27/24 11/01/24 History A-D) ondansetron HCl 8 mg tablet 8 mg PO Q8H PRN Nausea And Vomiting 08/27/24 11/01/24 History atorvastatin 40 mg tablet 40 mg PO DAILY #90 tabs 09/15/24 11/01/24 Rx prochlorperazine maleate 10 mg 10 mg PO Q8 PRN as directed 10/28/24 11/01/24 History tablet azelastine 137 mcg (0.1 %) nasal 2 spray NA BID PRN runny nose 11/03/24 Rx spray /congestion #1 inhaler guaifenesin 600 mg tablet, 600 mg PO Q12 PRN congestion #1 tab 11/03/24 Rx extended release 12 hr (Mucinex) meclizine 25 mg tablet 25 mg PO UD PRN motion 11/03/24 11/01/24 Rx sickness/vertigo #20 tabs metoprolol succinate 50 mg 50 mg PO QAM #180 tabs 11/03/24 11/01/24 Rx tablet,extended release 24 hr Allergies Allergy/AdvReac Type Severity Reaction Status Date / Time No Known Allergies Allergy Verified 09/20/24 15:06 Past Med/Surg History Problem List (Updated 11/01/24 @ 16:33 by Background Daemon) Asymptomatic bacteriuria Acute UTI (urinary tract infection) (Acute) Vertigo (Acute) Nausea & vomiting (Acute) Acute hyponatremia (Acute) Acute hypoxemic respiratory failure (Acute) Type 2 diabetes mellitus Acute labyrinthitis Primary adenocarcinoma of transverse colon Anemia Mild tricuspid regurgitation Thyroid nodule Ambulatory dysfunction (Acute) Hypertriglyceridemia Gout Chronic low back pain Stage III chronic kidney disease Anxiety disorder due to medical condition (Acute) Arthritis (Acute) Atrial premature complex (Acute) Controlled type 2 diabetes with renal manifestation (Acute) Hearing loss (Acute) Obesity (Acute) HTN (hypertension) (Chronic) Medical History Thyroid nodule monitoring. Anemia History of gout Colon cancer dx apr 2024 GERD (gastroesophageal reflux disease) Ambulatory dysfunction no WC or walker - slow to ambulate. Stage III chronic kidney disease no specialist Hyperlipidemia HTN (hypertension) Arthritis Atrial premature complex no cards Anxiety hx of situational anxiety - taking buspirone from 10 years ago Diabetes mellitus, type 2 IDDM Vertigo triggered by laying supine. Surgical History H/O colectomy (07/11/24) Robotic Assisted transverse Colectomy, robotic mobilization of splenic flexure and hepatic flexure, intracorporeal anastomosis- Yan Wilson, DO, FACS History of cataract surgery bilat History of colonoscopy History of tubal ligation Family History Father Cardiac disorder Myocardial infarction Mother Diabetes Cardiac disorder Hypertension Grandmother (Paternal) Breast cancer Other No family history of adverse response to anesthesia Denies family history of Ovarian cancer Prostate cancer Colorectal cancer Social History Smoking Status: Former smoker Tobacco Type: Cigarettes Age Started Using Tobacco: 16; Age Quit Using Tobacco: 62; packs per day: 1; Cigarettes Per Day: 1 PPD; Second Hand Exposure: No; Do You Dip or Chew Tobacco: No; Hx Alcohol Use: No Hx Substance Use: No Preferred Language: Khmer Communication Ability: Effective Visual Impairment: No Limitations Hearing Ability: Use of Hearing Aid Entertainment Agent Required: No Beliefs That Will Affect Care: None marital status: Current Living Situation: Spouse Current Living Situation Comment: one story home with three steps to front door current occupational status: retired current occupation: used to teach middle school, all subjects How many Children do You have: 1 Feels Safe at Home: Yes Childhood Exposure to Second-Hand Smoke: Yes Diet: regular caffeine: No during the past year weight has: decreased > 10 lbs Dental Care, Regularly: Yes Physical Activity Frequency: 1-2 Times per Week Seatbelt Use: always Sunscreen Use: No Assistive Devices: Glasses and Walker Physical Exam Vital Signs Vital Signs - 24 hr 11/01/24 08:29 11/01/24 08:47 11/01/24 08:57 Temperature 36.4 C L Temperature Source Temporal Artery Scan Pulse Rate 63 59 L Pulse Rate [Apical] 66 Pulse Rate from SpO2 Sensor Pulse Rhythm Pulse Rhythm [Apical] Regular Respiratory Rate 20 16 Respiratory Effort / Characteristics Non-Labored Spontaneous Non-Labored Spontaneous Respiratory Depth Normal Normal Respiratory Pattern Regular Regular Blood Pressure 126/77 Blood Pressure [Left Arm] 134/104 H Blood Pressure Mean 93 Blood Pressure Mean [Left Arm] 114 Pulse Oximetry 97 94 Oxygen Delivery Method Room Air Room Air Sepsis Recent Fever Within 48 Hours No Sepsis New/Unexplained Change in Mental Status No Sepsis Action Taken by Nursing No Action Required 11/01/24 08:57 11/01/24 09:30 11/01/24 09:30 Temperature Temperature Source Pulse Rate 66 Pulse Rate [Apical] Pulse Rate from SpO2 Sensor Pulse Rhythm Regular Pulse Rhythm [Apical] Respiratory Rate Respiratory Effort / Characteristics Respiratory Depth Respiratory Pattern Blood Pressure 136/64 136/64 Blood Pressure [Left Arm] Blood Pressure Mean 91 91 Blood Pressure Mean [Left Arm] Pulse Oximetry 94 Oxygen Delivery Method Room Air Sepsis Recent Fever Within 48 Hours Sepsis New/Unexplained Change in Mental Status Sepsis Action Taken by Nursing 11/01/24 09:30 11/01/24 09:30 11/01/24 09:30 Temperature Temperature Source Pulse Rate 70 Pulse Rate [Apical] Pulse Rate from SpO2 Sensor 66 Pulse Rhythm Pulse Rhythm [Apical] Respiratory Rate Respiratory Effort / Characteristics Respiratory Depth Respiratory Pattern Blood Pressure 136/64 136/64 Blood Pressure [Left Arm] Blood Pressure Mean 91 91 Blood Pressure Mean [Left Arm] Pulse Oximetry 97 Oxygen Delivery Method Sepsis Recent Fever Within 48 Hours Sepsis New/Unexplained Change in Mental Status Sepsis Action Taken by Nursing 11/01/24 09:42 11/01/24 09:54 11/01/24 10:15 Temperature Temperature Source Pulse Rate 64 65 64 Pulse Rate [Apical] Pulse Rate from SpO2 Sensor 65 64 64 Pulse Rhythm Pulse Rhythm [Apical] Respiratory Rate 20 20 18 Respiratory Effort / Characteristics Respiratory Depth Respiratory Pattern Blood Pressure Blood Pressure [Left Arm] Blood Pressure Mean Blood Pressure Mean [Left Arm] Pulse Oximetry 95 95 94 Oxygen Delivery Method Sepsis Recent Fever Within 48 Hours Sepsis New/Unexplained Change in Mental Status Sepsis Action Taken by Nursing 11/01/24 10:21 11/01/24 10:30 11/01/24 10:42 Temperature Temperature Source Pulse Rate 64 70 Pulse Rate [Apical] 64 Pulse Rate from SpO2 Sensor 64 67 Pulse Rhythm Pulse Rhythm [Apical] Respiratory Rate 18 16 16 Respiratory Effort / Characteristics Non-Labored Spontaneous Respiratory Depth Normal Respiratory Pattern Regular Blood Pressure Blood Pressure [Left Arm] 107/60 Blood Pressure Mean Blood Pressure Mean [Left Arm] 75 Pulse Oximetry 94 94 96 Oxygen Delivery Method Room Air Sepsis Recent Fever Within 48 Hours Sepsis New/Unexplained Change in Mental Status Sepsis Action Taken by Nursing 11/01/24 10:54 11/01/24 11:00 11/01/24 11:00 Temperature Temperature Source Pulse Rate 67 Pulse Rate [Apical] Pulse Rate from SpO2 Sensor 70 Pulse Rhythm Pulse Rhythm [Apical] Respiratory Rate 26 H Respiratory Effort / Characteristics Respiratory Depth Respiratory Pattern Blood Pressure 112/59 L 112/59 L Blood Pressure [Left Arm] Blood Pressure Mean 94 94 Blood Pressure Mean [Left Arm] Pulse Oximetry 98 Oxygen Delivery Method Sepsis Recent Fever Within 48 Hours Sepsis New/Unexplained Change in Mental Status Sepsis Action Taken by Nursing 11/01/24 11:00 11/01/24 11:18 11/01/24 11:21 Temperature Temperature Source Pulse Rate 65 65 62 Pulse Rate [Apical] Pulse Rate from SpO2 Sensor 66 65 63 Pulse Rhythm Pulse Rhythm [Apical] Respiratory Rate 22 16 12 Respiratory Effort / Characteristics Respiratory Depth Respiratory Pattern Blood Pressure Blood Pressure [Left Arm] Blood Pressure Mean Blood Pressure Mean [Left Arm] Pulse Oximetry 97 95 96 Oxygen Delivery Method Sepsis Recent Fever Within 48 Hours Sepsis New/Unexplained Change in Mental Status Sepsis Action Taken by Nursing 11/01/24 11:24 11/01/24 11:30 11/01/24 11:30 Temperature Temperature Source Pulse Rate 61 Pulse Rate [Apical] Pulse Rate from SpO2 Sensor 61 Pulse Rhythm Pulse Rhythm [Apical] Respiratory Rate 16 Respiratory Effort / Characteristics Respiratory Depth Respiratory Pattern Blood Pressure 106/57 L 106/57 L Blood Pressure [Left Arm] Blood Pressure Mean 69 69 Blood Pressure Mean [Left Arm] Pulse Oximetry 95 Oxygen Delivery Method Sepsis Recent Fever Within 48 Hours Sepsis New/Unexplained Change in Mental Status Sepsis Action Taken by Nursing 11/01/24 11:48 11/01/24 11:51 11/01/24 11:54 Temperature Temperature Source Pulse Rate 63 65 65 Pulse Rate [Apical] Pulse Rate from SpO2 Sensor 65 63 66 Pulse Rhythm Pulse Rhythm [Apical] Respiratory Rate 19 24 18 Respiratory Effort / Characteristics Respiratory Depth Respiratory Pattern Blood Pressure Blood Pressure [Left Arm] Blood Pressure Mean Blood Pressure Mean [Left Arm] Pulse Oximetry 95 95 95 Oxygen Delivery Method Sepsis Recent Fever Within 48 Hours Sepsis New/Unexplained Change in Mental Status Sepsis Action Taken by Nursing 11/01/24 12:00 11/01/24 12:00 11/01/24 12:12 Temperature Temperature Source Pulse Rate 64 Pulse Rate [Apical] 63 Pulse Rate from SpO2 Sensor Pulse Rhythm Pulse Rhythm [Apical] Respiratory Rate 16 16 Respiratory Effort / Characteristics Non-Labored Spontaneous Respiratory Depth Normal Respiratory Pattern Regular Blood Pressure 109/61 Blood Pressure [Left Arm] 109/61 Blood Pressure Mean 91 Blood Pressure Mean [Left Arm] 77 Pulse Oximetry 94 Oxygen Delivery Method Room Air Sepsis Recent Fever Within 48 Hours Sepsis New/Unexplained Change in Mental Status Sepsis Action Taken by Nursing 11/01/24 12:21 11/01/24 12:30 11/01/24 12:36 Temperature Temperature Source Pulse Rate 63 60 Pulse Rate [Apical] Pulse Rate from SpO2 Sensor 66 63 Pulse Rhythm Pulse Rhythm [Apical] Respiratory Rate 17 15 Respiratory Effort / Characteristics Respiratory Depth Respiratory Pattern Blood Pressure 112/60 Blood Pressure [Left Arm] Blood Pressure Mean 88 Blood Pressure Mean [Left Arm] Pulse Oximetry 96 96 Oxygen Delivery Method Sepsis Recent Fever Within 48 Hours Sepsis New/Unexplained Change in Mental Status Sepsis Action Taken by Nursing 11/01/24 12:42 11/01/24 12:57 11/01/24 13:00 Temperature Temperature Source Pulse Rate 62 69 Pulse Rate [Apical] Pulse Rate from SpO2 Sensor 65 69 Pulse Rhythm Pulse Rhythm [Apical] Respiratory Rate 21 17 Respiratory Effort / Characteristics Respiratory Depth Respiratory Pattern Blood Pressure 132/65 Blood Pressure [Left Arm] Blood Pressure Mean 116 Blood Pressure Mean [Left Arm] Pulse Oximetry 93 95 Oxygen Delivery Method Sepsis Recent Fever Within 48 Hours Sepsis New/Unexplained Change in Mental Status Sepsis Action Taken by Nursing 11/01/24 13:03 11/01/24 13:21 11/01/24 13:31 Temperature Temperature Source Pulse Rate 70 69 Pulse Rate [Apical] Pulse Rate from SpO2 Sensor 70 69 Pulse Rhythm Pulse Rhythm [Apical] Respiratory Rate 15 15 Respiratory Effort / Characteristics Respiratory Depth Respiratory Pattern Blood Pressure 106/82 Blood Pressure [Left Arm] Blood Pressure Mean 95 Blood Pressure Mean [Left Arm] Pulse Oximetry 96 93 Oxygen Delivery Method Sepsis Recent Fever Within 48 Hours Sepsis New/Unexplained Change in Mental Status Sepsis Action Taken by Nursing 11/01/24 13:48 Temperature Temperature Source Pulse Rate 67 Pulse Rate [Apical] Pulse Rate from SpO2 Sensor 66 Pulse Rhythm Pulse Rhythm [Apical] Respiratory Rate 19 Respiratory Effort / Characteristics Respiratory Depth Respiratory Pattern Blood Pressure Blood Pressure [Left Arm] Blood Pressure Mean Blood Pressure Mean [Left Arm] Pulse Oximetry 95 Oxygen Delivery Method Sepsis Recent Fever Within 48 Hours Sepsis New/Unexplained Change in Mental Status Sepsis Action Taken by Nursing VITAL SIGNS - Vital signs and nursing notes were reviewed. GENERAL -84-year-old female appearing their stated age, who is in no acute distress. Communicates well with provider and answers questions appropriately. Patient's is at bedside. HEAD - Normocephalic, Atraumatic. No Patel's Sign or Raccoon's Eyes. No depressed skull fractures palpable. EYES - PERRL with EOMI bilaterally. Sclera anicteric. Conjunctiva pink and moist with no injection noted. No nystagmus noted. EARS - No deformities of external structures noted on gross examination bilaterally. NOSE - Midline and without cyanosis. No epistaxis or purulent drainage noted. NECK - Neck with FROM. Supple to palpation. No lymphadenopathy noted. LUNGS - Chest wall symmetric without accessory muscle use, intercostals retractions, or central cyanosis. Normal vesicular breath sounds CTA B/L. No wheezes, rales, or rhonchi appreciated. CARDIAC - RRR with S1/S2. No murmur, rubs, or gallops appreciated. EXTREMITIES - No edema present. +5/5 strength noted in UE/LE bilaterally. NEUROLOGIC -Sensory intact to light touch throughout. PSYCH - A&Ox3 and cooperates fully with examiner. Pt is very pleasant and interacts well with examiner Course Administered Medications Discontinued Medications Amlodipine Besylate (Amlodipine Besylate 5 Mg Tab) 5 mg PO QAM [facility] Stop: 12/02/24 08:59 Last Admin: 11/03/24 09:03 Dose: 5 mg Documented By: Admin: 11/02/24 08:15 Dose: 5 mg Documented By: ROMA Atorvastatin Calcium (Atorvastatin 40 Mg Tab) 40 mg PO DAILY [facility] Stop: 12/02/24 08:59 Last Admin: 11/03/24 09:03 Dose: 40 mg Documented By: Admin: 11/02/24 08:15 Dose: 40 mg Documented By: ROMA Azelastine HCl (Azelastine Hcl 0.1% Nasal 200 Sprays/27,400 Mcg Btl) 2 sprays NA BID BRIAN Stop: 12/02/24 20:59 Last Admin: 11/03/24 09:03 Dose: 2 sprays Documented By: Admin: 11/02/24 21:04 Dose: 2 sprays Documented By: NICK Buspirone HCl (Buspirone 5 Mg Tab) 5 mg PO TID BRIAN Stop: 12/01/24 16:44 Last Admin: 11/03/24 09:03 Dose: 5 mg Documented By: Admin: 11/02/24 21:03 Dose: 5 mg Documented By: Admin: 11/02/24 13:01 Dose: 5 mg Documented By: Admin: 11/02/24 08:15 Dose: 5 mg Documented By: Admin: 11/01/24 21:28 Dose: 5 mg Documented By: Admin: 11/01/24 17:27 Dose: 5 mg Documented By: KELLY Capecitabine (Capecitabine 500mg Tablet) 4 each PO BID [facility] Stop: 11/04/24 21:01 Last Admin: 11/03/24 09:04 Dose: 4 each Documented By: ROMA Co-signed By: IRIS Admin: 11/02/24 21:05 Dose: 4 each Documented By: NICK Co-signed By: crew chief: 11/02/24 09:33 Dose: 4 each Documented By: ROMA Co-signed By: IRIS Admin: 11/01/24 21:32 Dose: 4 each Documented By: CHELE Co-signed By: NICK Diclofenac Sodium (Diclofenac Sod 1% Gel 100 Gm Tube) 2 gm EXT BID BRIAN; Protocol Stop: 12/01/24 20:59 Last Admin: 11/03/24 09:02 Dose: 2 gm Documented By: Admin: 11/02/24 21:04 Dose: 2 gm Documented By: Admin: 11/02/24 08:15 Dose: 2 gm Documented By: Admin: 11/01/24 21:29 Dose: 2 gm Documented By: CHELE Famotidine (Famotidine 20 Mg Tab) 20 mg PO QPM BRIAN Stop: 12/01/24 20:59 Last Admin: 11/02/24 21:04 Dose: 20 mg Documented By: Admin: 11/01/24 21:28 Dose: 20 mg Documented By: CHELE Ferrous Sulfate (Ferrous Sulfate 325 Mg Tab) 325 mg PO DAILY BRIAN Stop: 12/02/24 08:59 Last Admin: 11/03/24 09:03 Dose: 325 mg Documented By: Admin: 11/02/24 08:15 Dose: 325 mg Documented By: ROMA Guaifenesin (Guaifenesin 600 Mg Tabcr) 600 mg PO Q12 BRIAN Stop: 12/02/24 16:34 Last Admin: 11/03/24 09:03 Dose: 600 mg Documented By: Admin: 11/02/24 21:04 Dose: 600 mg Documented By: Admin: 11/02/24 17:44 Dose: 600 mg Documented By: ROMA Sodium Chloride (Nss) 500 mls @ 999 mls/hr IV .Q31M ONE Stop: 11/01/24 09:13 Last Infusion: 11/01/24 10:03 Dose: Infused Documented By: Admin: 11/01/24 09:07 Dose: 999 mls/hr Documented By: JOHANNA Ceftriaxone Sodium (Rocephin) 1,000 mg in 50 mls @ 100 mls/hr IV NOW STA Stop: 11/01/24 11:44 Last Infusion: 11/01/24 13:00 Dose: Infused Documented By: Admin: 11/01/24 11:39 Dose: 100 mls/hr Documented By: JOHANNA Sodium Chloride (Nss) 500 mls @ 999 mls/hr IV .Q31M ONE Stop: 11/02/24 12:55 Last Infusion: 11/02/24 13:37 Dose: Infused Documented By: Admin: 11/02/24 13:01 Dose: 999 mls/hr Documented By: ROMA Insulin Aspart (Insulin Aspart Per Unit Charge) 0 units SC ACHS BRIAN Stop: 12/01/24 16:34 Last Admin: 11/03/24 13:11 Dose: Not Given Documented By: Admin: 11/03/24 09:03 Dose: 6 units Documented By: ROMA Co-signed By: IRIS Admin: 11/02/24 20:40 Dose: Not Given Documented By: Admin: 11/02/24 17:44 Dose: 5 units Documented By: ROMA Co-signed By: TOM Admin: 11/02/24 13:00 Dose: 8 units Documented By: ROMA Co-signed By: IRIS Admin: 11/02/24 09:33 Dose: 7 units Documented By: ROMA Co-signed By: IRIS Admin: 11/01/24 20:58 Dose: Not Given Documented By: Admin: 11/01/24 17:28 Dose: 3 units Documented By: KELLY Co-signed By: TOM Insulin Glargine (Lantus Per Unit Charge) 27 units SQ BID BRIAN Stop: 12/02/24 08:59 Last Admin: 11/03/24 09:03 Dose: 27 units Documented By: ROMA Co-signed By: IRIS Admin: 11/02/24 21:03 Dose: 27 units Documented By: NICK Co-signed By: crew chief: 11/02/24 09:33 Dose: 27 units Documented By: ROMA Co-signed By: IRIS Lorazepam (Lorazepam 2 Mg/1 Ml Vial) 0.5 mg IV ONE PRN PRN Reason: Pre-MRI anxiety Last Admin: 11/01/24 19:34 Dose: 0.5 mg Documented By: CHELE Meclizine HCl (Meclizine Hcl 25 Mg Tab) 25 mg PO NOW STA Stop: 11/01/24 08:44 Last Admin: 11/01/24 09:07 Dose: 25 mg Documented By: JOHANNA Meclizine HCl (Meclizine 12.5 Mg Tab) 12.5 mg PO TID BRIAN Stop: 12/01/24 20:59 Last Admin: 11/03/24 09:03 Dose: 12.5 mg Documented By: Admin: 11/02/24 21:03 Dose: 12.5 mg Documented By: Admin: 11/02/24 13:01 Dose: 12.5 mg Documented By: Admin: 11/02/24 08:15 Dose: 12.5 mg Documented By: Admin: 11/01/24 21:32 Dose: 12.5 mg Documented By: CHELE Metoprolol Succinate (Metoprolol Succ 50mg Ext Rel Tab) 50 mg PO BID BRIAN Stop: 12/01/24 20:59 Last Admin: 11/02/24 08:15 Dose: 50 mg Documented By: Admin: 11/01/24 21:30 Dose: 50 mg Documented By: CHELE Metoprolol Succinate (Metoprolol Succ 50mg Ext Rel Tab) 50 mg PO QAM BRIAN Stop: 12/03/24 08:59 Last Admin: 11/03/24 09:03 Dose: 50 mg Documented By: ROMA Ondansetron HCl (Ondansetron Inj 2 Mg/Ml 2 Ml Vial) 4 mg IV NOW STA Stop: 11/01/24 08:44 Last Admin: 11/01/24 09:07 Dose: 4 mg Documented By: JOHANNA Sodium Chloride (Sodium Chloride 0.65% Na Soln 45 Ml ([place])) 2 sprays NA Q2H PRN PRN Reason: Nasal Congestion Stop: 12/02/24 16:32 Last Admin: 11/02/24 17:44 Dose: 2 sprays Documented By: ROMA Medical Decision Making Differential Diagnosis Vertigo, CVA, nausea, electrolyte imbalance, among others Medical Records Attestation: I reviewed the patient's medical records. Home Medications was personally reviewed by me Laboratory Data Attestation: I reviewed the patient's lab results. 11/02/24 07:09 11/02/24 07:09 Lab Results 11/01/24 11/01/24 Range/Units 08:46 09:10 WBC 6.07 (4.8-10.8) K/ul RBC 4.00 L (4.20-5.40) M/uL Hgb 12.8 (12.0-16.0) g/dl Hct 39.2 (37.0-47.0) % MCV 98.0 (80.0-100.0) fL MCH 32.0 (25.0-34.0) pg MCHC 32.7 (32.0-36.0) g/dL RDW Std Deviation 75.6 H (36.4-46.3) fL RDW Coeff of Rachid 21.3 H (11.5-14.5) % Plt Count 188 (130-400) K/uL MPV 9.9 (9.4-12.4) fL Immature Gran % (Auto) 0.5 % Neut % (Auto) 69.5 % Lymph % (Auto) 19.6 % [place] % (Auto) 8.1 % Eos % (Auto) 2.1 % Baso % (Auto) 0.2 % Neut # (Auto) 4.22 (1.40-6.50) K/uL Lymph # (Auto) 1.19 L (1.20-3.40) K/uL [place] # (Auto) 0.49 (0.11-0.59) K/uL Eos # (Auto) 0.13 (0.00-0.50) K/uL Baso # (Auto) 0.01 (0.00-0.20) K/uL Immature Gran # (Auto) 0.03 (0.01-0.20) K/uL Hypersegmented Neuts 1+ Polychromasia 1+ Anisocytosis Present Tear Drop Cells 1+ Ovalocytes 1+ Sodium 136 (136-145) mmol/L Potassium 4.8 (3.5-5.1) mmol/L Chloride 105 (98-107) mmol/L Carbon Dioxide 24 (21-32) mmol/L Anion Gap 7 (3-11) BUN 40 H (6-23) mg/dl Creatinine 1.46 H (0.6-1.2) mg/dl Est Cr Clr Drug Dosing 29.5 ml/min eGFR 35.28 BUN/Creatinine Ratio 27.4 H (10-20) Glucose 169 H (70-99(Fasting)) mg/dl Calcium 8.9 (8.6-10.3) mg/dl Total Bilirubin 1.2 H (0.2-1.0) mg/dl AST 17 (13-39) U/L ALT 16 (7-52) U/L Alkaline Phosphatase 54 (34-104) U/L Troponin I High Sens 3.5 (0-14) pg/ml Total Protein 7.2 (6.0-8.3) gm/dl Albumin 4.5 (3.4-5.0) gm/dl Globulin 2.7 (2.5-4.0) gm/dl Albumin/Globulin Ratio 1.7 (0.9-2) Urine Color Yellow Urine Appearance Clear (Clear) Urine pH 5.5 (4.5-7.5) Ur Specific [place] 1.015 (1.000-1.030) Urine Protein Negative (Negative) Urine Glucose (UA) 3+ H (Negative) Urine Ketones Negative (Negative) Urine Blood Negative (Negative) Urine Nitrite Negative (Negative) Urine Bilirubin Negative (Negative) Urine Urobilinogen Negative (Negative) Ur Leukocyte Esterase 2+ H (Negative) Urine WBC (Auto) 11-20 H (0-5) /hpf Urine RBC (Auto) 0-2 (0-2) /hpf U Hyaline Cast (Auto) 0-2 (0-2) /lpf U Epithel Cells (Auto) 0-2 (0-2) /hpf Urine Bacteria (Auto) None Seen (None Seen) Imaging Data Radiologist's Impression: Head CT 11/01/24 08:43 CT head/brain wo con CLINICAL HISTORY: vertigo, dizzy. TECHNIQUE: Multiple axial CT images of the head were obtained without contrast. A dose lowering technique was utilized adhering to the principles of ALARA. CT DOSE: 1501.36 mGy.cm COMPARISON: 10/28/2024 FINDINGS: No intracranial hemorrhage seen. No mass effect, midline shift, or hydrocephalus. There are stable mild chronic small vessel ischemic changes. Visualized paranasal sinuses and mastoid air cells are clear. No skull fracture seen. IMPRESSION: No acute findings. ACT 112: Negative or not required by law. The above report was generated using voice recognition software. It may contain grammatical, syntax or spelling errors. Electronically signed by: Yan Campbell M.D. 11/01/2024 9:10 AM [facility] Narrative Patient is a 20-year-old female who presents to the emergency department with complaints of a laceration to her right pointer finger. Patient states that she was at work and sliced her finger on a meat grinder. Bleeding is controlled upon presentation to the emergency department. Patient states that she is unsure when she last had a tetanus vaccine. Patient was evaluated by myself and findings were noted in the physical exam above. Patient was ordered IV placement, lab work, EKG, CT of the head, and a dose of meclizine and IV Zofran. Patient CT was completed and interpreted by radiology to show no acute findings. There is no intracranial hemorrhage noted, no mass effect, no midline shift or hydrocephalus. There was some stable mild chronic small vessel ischemic changes noted, however no acute findings. Patient's EKG shows her to be in a normal sinus rhythm with an incomplete right bundle branch which is not new for the patient. Patient's lab work resulted with a normal white blood cell count of 6.07. Patient had no indication of anemia with a hemoglobin of 12.8 and hematocrit of 39.0. Patient had no significant electrolyte imbalance noted. The patient does have some elevated kidney function test, and does have a normal troponin of 3.5. Patient's urinalysis was indicative of infection. I discussed all these findings with the patient who verbalized understanding. Patient states that she is feeling a little bit better after the meclizine and fluids however she is still feeling lightheaded and states that she does not feel safe going home. Patient is concerned that if she attempts to change position that she is going to get so lightheaded that she falls. I discussed with the patient going home with meclizine and treatment for her UTI and the patient stated that she would feel more comfortable staying in the hospital and does not feel that she can go home. I discussed with the patient that I would speak to the hospitalist group about keeping her in the hospital for further evaluation and monitoring. Patient verbalized understanding. Patient was ordered a dose of Rocephin IV at this time. I reached out to case management who contacted the [facility] about admitting the patient under their service to the hospital. I spoke with Dr. Vivar of the [facility] and gave him a full report on the patient's chief complaint, current status, and results of her imaging and lab work. Dr. Vivar agreed to accept the patient under his service. Please refer to [facility]'s documentation for further evaluation and management of this patient. Attending Attestation: I Steve Tai MD I have reviewed the advanced practitioner's documentation and agree with the plan of care. I accept the responsibility for the associated risk of managing the patient. I performed a substantive portion of the visit including involvement in all aspects of medical decision making. Impression Vertigo, Acute UTI (urinary tract infection) Discharge Plan Visit Data Chief Complaint: Vertigo Stated Complaint: VERTIGO, BLURRED VISION ED Provider: Steve Tai ED Midlevel Provider: Patty Bourne Discharge Problem: Vertigo, Acute UTI (urinary tract infection) Patient Disposition: Admitted As Inpatient Discharge Instructions Interventions: ED Discharge Assessment Last Done: 11/01/24 16:02
[2024-11-01 09:23] LABS: Basophils # (auto) 0.01 K/uL (0.00-0.20); Basophils % (auto) 0.2 %; Eosinophils # (auto) 0.13 K/uL (0.00-0.50); Eosinophils % (auto) 2.1 %; Hematocrit (blood only) 39.2 % (37.0-47.0); Hemoglobin 12.8 g/dl (12.0-16.0); Immature Granulocytes # (auto) 0.03 K/uL (0.01-0.20); Immature Granulocytes % (auto) 0.5 %; Lymphocytes # (auto) 1.19 K/uL (1.20-3.40); Lymphocytes % (auto) 19.6 %; Mean Corpuscular Hgb Conc 32.7 g/dL (32.0-36.0); Mean Platelet Volume 9.9 fL (9.4-12.4); Monocytes # (auto) 0.49 K/uL (0.11-0.59); Monocytes % (auto) 8.1 %; Neutrophils # (auto) 4.22 K/uL (1.40-6.50); Neutrophils % (auto) 69.5 %; Platelet Count 188 K/uL (130-400); RDW Coefficient of Variation 21.3 % (11.5-14.5); RDW Standard Deviation 75.6 fL (36.4-46.3); White Blood Count 6.07 K/ul (4.8-10.8)
[2024-11-01 09:33] LABS: Albumin Globulin Ratio 1.7 (0.9-2); Albumin Level 4.5 gm/dl (3.4-5.0); BUN Creatinine Ratio 27.4 (10-20); Bilirubin,Total 1.2 mg/dl (0.2-1.0); Calcium 8.9 mg/dl (8.6-10.3); Creatinine Clr Calc Pharmacy 29.5 ml/min; Globulin 2.7 gm/dl (2.5-4.0); Potassium 4.8 mmol/L (3.5-5.1); Total Protein 7.2 gm/dl (6.0-8.3)
[2024-11-01 09:39] LABS: Troponin I High Sensitivity 3.5 pg/ml (0-14)
[2024-11-01 09:43] LABS: Appearance Urine Clear (Clear); Bacteria Urine Automated None Seen (None Seen); Bilirubin Urine Negative (Negative); Blood Urine Negative (Negative); Cast Urine Automated 0-2 /lpf (0-2); Color Urine Yellow; Epithelial Cell Urine Auto 0-2 /hpf (0-2); Glucose Urine UA 3+ (Negative); Ketones Urine Negative (Negative); Leukocyte Esterase Urine 2+ (Negative); Nitrite Urine Negative (Negative); Protein Urine Negative (Negative); RBC Urine Automated 0-2 /hpf (0-2); Specific Gravity Urine 1.015 (1.000-1.030); Urobilinogen Urine Negative (Negative); pH Urine 5.5 (4.5-7.5)
[2024-11-01 09:47] LABS: Anisocytosis Present; Hypersegmented Neutrophils 1+; Ovalocytes 1+; Polychromasia 1+; Tear Drop Cells 1+
[2024-11-01] MEDS: cefTRIAXone SODIUM 1,000 MG/50 ML BAG IV STA (11:39)
--- NOTE | 2024-11-01 12:41 | History & Physical Report ---
Date of Service November 01, 2024 Assessment & Plan (1) Vertigo: (2) Asymptomatic bacteriuria: Plan This patient is an 84-year-old female who came in for refractory dizziness (thought secondary to vertigo) on 11/01. Recent [place] admission 10/28 - 10/29 for similar. She reports that she can have dizziness at rest, such as when she wakes up in the middle at night. #Vertigo/blurry vision Refractory to meclizine at home No tinnitus or recent viral infections to suggest a lot but that is No history of stroke No strokelike symptoms (such as unilateral deficits, slurred speech, or facial droop appreciated) Head CT on arrival revealed no acute findings Brain MRI ordered, pending PT evaluations appreciated; vestibular evaluation, Ray-Hallpike Meclizine 25 mg p.o. q8h Antiemetics PRN #UTI/asymptomatic bacteriuria UA with 2+ leukocyte Esterace on arrival Rocephin 1000 mg IV x 1 Clinically, patient denies burning with urination or urinary symptoms Will defer additional antibiotics at this time Follow current UCx #T2DM Last A1c at 6.3% on 09/14/2024 Hold metformin, empagliflozin Patient is normally on Lantus 54 units QAM Lantus 27 u BID while inpatient SSI; with target BSG range 110-140mg/dL, CF 20, carb ratio 8 T2DM diet BSG ACHS Adjust regimen as needed #CKD Hold lisinopril as CrCl < 30 #Colon cancer Continue capecitabine Disposition: Obs - admit to [facility] tele VTE PPx: SCDs History of Present Illness Chief Complaint: Vertigo Primary Care Provider: Krystal Jung MD Mrs. Tatum is an 84-year-old female with PMH of T2DM, HTN, gout, CKD stage III, and labyrinthitis. She presented on 11/01 for intractable dizziness/room spinning/bilateral blurry vision. Recent [facility] admission from 10/28 -10/29 for symptoms of vertigo. Patient felt okay upon discharge, but then her vertigo returned yesterday, and she developed blurry vision last night. The blurry vision is worse in her right eye; she does wear glasses at baseline. The vertigo/disequilibrium has been constant, however the "room spinning" at rest comes and goes. Patient would wake up while sleeping last night, in the room with to be spinning. Patient has been taking meclizine 25 mg p.o. at home every 8 hours for her vertigo this week, which would help sometimes, but other times it did not work. No prior history of stroke. No slurred speech, facial droop, unilateral deficits. No recent falls or syncope. Patient took her regular mo rning medicine today; no recent change in medications. Patient manages her own medicine at home. She has had no nausea or vomiting since Tuesday. Additionally, she does have a history of UTIs, but does not have any urinary symptoms at this time. Patient is a former tobacco cigarette smoker; quit 23 years ago. No recent alcohol use. Patient's vitals are stable at time admission. ED course: Zofran 4 mg IV Meclizine 25 mg p.o. NSS 500 mL IV Ceftriaxone 1000 mg IV ROS: Patient endorses dizziness, blurry vision bilaterally, nausea, and one episode of vomiting (on Tuesday, secondary to dizziness; resolved). Patient denies fatigue, slurred speech, rashes, tickbites, headache, tinnitus, chest pain, chest palpitations, SOB, cough, abdominal pain, diarrhea, burning with urination, or dysuria. Allergies Allergy/AdvReac Type Severity Reaction Status Date / Time No Known Allergies Allergy Verified 09/20/24 15:06 Home Medications Medication Instructions Recorded Confirmed Type cholecalciferol (vitamin D3) 25 25 mcg PO QPM 01/02/20 11/01/24 History mcg (1,000 unit) capsule cranberry extract 250 mg capsule 250 mg PO QAM 10/20/22 11/01/24 History famotidine 20 mg tablet 20 mg PO QPM 10/20/22 11/01/24 History amlodipine 5 mg tablet 5 mg PO QAM 01/29/24 11/01/24 History pen needle, diabetic 31 gauge x 03/16/24 10/30/24 History 3/16" metformin 1,000 mg tablet 1,000 mg PO BID #180 tabs 03/22/24 11/01/24 Rx blood sugar diagnostic (OneTouch #100 ea 04/09/24 10/30/24 Rx Ultra Test strips) ferrous sulfate 325 mg (65 mg 325 mg PO DAILY 05/21/24 11/01/24 History iron) tablet (FeroSul) dulaglutide 1.5 mg/0.5 mL 1.5 mg subcut WK 07/03/24 11/01/24 History subcutaneous pen injector (Trulicity) lorazepam 1 mg tablet 0.5 mg PO UD PRN vertigo 07/03/24 11/01/24 History buspirone 5 mg tablet 5 mg PO TID #270 tabs 07/16/24 11/01/24 Rx lisinopril 40 mg tablet 40 mg PO QAM #90 tabs 07/19/24 11/01/24 Rx empagliflozin 25 mg tablet 25 mg PO QAM 90 days #90 tabs 08/07/24 11/01/24 Rx (Jardiance) insulin glargine 100 unit/mL (3 54 unit (0.54 mL) subcut QAM #15 mL 08/10/24 11/01/24 Rx mL) subcutaneous pen (Lantus Solostar U-100 Insulin) capecitabine 500 mg tablet 2,000 mg PO BID 08/27/24 11/01/24 History diclofenac sodium 1 % topical gel 2 g topical BID 08/27/24 11/01/24 History loperamide 2 mg tablet (Imodium 2 mg PO Q6H PRN Diarrhea 08/27/24 11/01/24 History A-D) ondansetron HCl 8 mg tablet 8 mg PO Q8H PRN Nausea And Vomiting 08/27/24 11/01/24 History atorvastatin 40 mg tablet 40 mg PO DAILY #90 tabs 09/15/24 11/01/24 Rx prochlorperazine maleate 10 mg 10 mg PO Q8 PRN as directed 10/28/24 11/01/24 History tablet azelastine 137 mcg (0.1 %) nasal 2 spray NA BID PRN runny nose 11/03/24 Rx spray /congestion #1 inhaler guaifenesin 600 mg tablet, 600 mg PO Q12 PRN congestion #1 tab 11/03/24 Rx extended release 12 hr (Mucinex) meclizine 25 mg tablet 25 mg PO UD PRN motion 11/03/24 11/01/24 Rx sickness/vertigo #20 tabs metoprolol succinate 50 mg 50 mg PO QAM #180 tabs 11/03/24 11/01/24 Rx tablet,extended release 24 hr Past Med/Surg History Problem List (Updated 11/01/24 @ 16:33 by Background Daemon) Asymptomatic bacteriuria Acute UTI (urinary tract infection) (Acute) Vertigo (Acute) Nausea & vomiting (Acute) Acute hyponatremia (Acute) Acute hypoxemic respiratory failure (Acute) Type 2 diabetes mellitus Acute labyrinthitis Primary adenocarcinoma of transverse colon Anemia Mild tricuspid regurgitation Thyroid nodule Ambulatory dysfunction (Acute) Hypertriglyceridemia Gout Chronic low back pain Stage III chronic kidney disease Anxiety disorder due to medical condition (Acute) Arthritis (Acute) Atrial premature complex (Acute) Controlled type 2 diabetes with renal manifestation (Acute) Hearing loss (Acute) Obesity (Acute) HTN (hypertension) (Chronic) Medical History Thyroid nodule monitoring. Anemia History of gout Colon cancer dx apr 2024 GERD (gastroesophageal reflux disease) Ambulatory dysfunction no WC or walker - slow to ambulate. Stage III chronic kidney disease no specialist Hyperlipidemia HTN (hypertension) Arthritis Atrial premature complex no cards Anxiety hx of situational anxiety - taking buspirone from 10 years ago Diabetes mellitus, type 2 IDDM Vertigo triggered by laying supine. Surgical History H/O colectomy (07/11/24) Robotic Assisted transverse Colectomy, robotic mobilization of splenic flexure and hepatic flexure, intracorporeal anastomosis- Yan Wilson DO, [facility] History of cataract surgery bilat History of colonoscopy History of tubal ligation Family History Father Cardiac disorder Myocardial infarction Mother Diabetes Cardiac disorder Hypertension Grandmother (Paternal) Breast cancer Other No family history of adverse response to anesthesia Denies family history of Ovarian cancer Prostate cancer Colorectal cancer Social History Smoking Status: Former smoker Tobacco Type: Cigarettes Age Started Using Tobacco: 16; Age Quit Using Tobacco: 62; packs per day: 1; Cigarettes Per Day: 1 PPD; Second Hand Exposure: No; Do You Dip or Chew Tobacco: No; Hx Alcohol Use: No Hx Substance Use: No Preferred Language: Bahamian Communication Ability: Effective Visual Impairment: No Limitations Hearing Ability: Use of Hearing Aid Dial Polisher Required: No Beliefs That Will Affect Care: None marital status: Current Living Situation: Spouse Current Living Situation Comment: one story home with three steps to front door current occupational status: retired current occupation: used to teach middle school, all subjects How many Children do You have: 1 Feels Safe at Home: Yes Childhood Exposure to Second-Hand Smoke: Yes Diet: regular caffeine: No during the past year weight has: decreased > 10 lbs Dental Care, Regularly: Yes Physical Activity Frequency: 1-2 Times per Week Seatbelt Use: always Sunscreen Use: No Assistive Devices: Glasses and Walker Review of Systems Review of Systems: See HPI above Physical Exam Physical Exam: General: no acute distress; non-toxic appearing; frail appearing; cooperative; SpO2 94% on RA HEENT: normocephalic, atraumatic; no scleral icterus; PERRLA w/ EOMs intact, however patient exhibits rotary nystagmus in the eyes bilaterally while at rest; vision intact; hard of hearing; patient demonstrates ability to protrude and wig gle tongue bilaterally Neck: supple; trachea midline Skin: warm, dry without signs of tenting; no cyanosis; no rashes, bruising, lesions, or erythema noted CV: chest wall NTP; RRR; S1/S2 normal; no murmurs/rubs/gallops; pulses intact and symmetric at radial, DP, and PT Lungs: no acute respiratory distress; symmetrical chest wall expansion; clear breath sounds across all lung chavez w/o adventitious sounds; no wheezing ABD: Soft, NTP; BS present; no rebound/guarding; no distention MSK: no tics or fasciculations; no edema noted in the LEs b/l, nonerythematous; 5/5 shoemaking cutter strength bilaterally; patient demonstrates ability to lift legs against resistance without unilateral deficits Neuro: A&Ox3; normal mood and affect; fluent speech; no slurred speech or facial droop; no focal deficits; sensation intact and symmetric in lower EXTR bilaterally Results & Data Results & Data Vital Signs (Past 12 Hours) Vital Signs Temp Pulse Pulse Resp BP BP Pulse Ox 11/01/24 12:00 63 16 109/61 94 11/01/24 10:30 64 16 107/60 94 11/01/24 08:57 66 94 11/01/24 08:57 66 16 134/104 H 94 11/01/24 08:47 59 L 11/01/24 08:29 36.4 C L 63 20 126/77 97 O2 Del Method 11/01/24 12:00 Room Air 11/01/24 10:30 Room Air 11/01/24 08:57 Room Air 11/01/24 08:57 Room Air 11/01/24 08:47 11/01/24 08:29 Room Air Laboratory Results Abnormal lab results 11/01/24 11/01/24 Range/Units 08:46 09:10 RBC 4.00 L (4.20-5.40) M/uL RDW Std Deviation 75.6 H (36.4-46.3) fL RDW Coeff of Rachid 21.3 H (11.5-14.5) % Lymph # (Auto) 1.19 L (1.20-3.40) K/uL BUN 40 H (6-23) mg/dl Creatinine 1.46 H (0.6-1.2) mg/dl BUN/Creatinine Ratio 27.4 H (10-20) Glucose 169 H (70-99(Fasting)) mg/dl Total Bilirubin 1.2 H (0.2-1.0) mg/dl Urine Glucose (UA) 3+ H (Negative) Ur Leukocyte Esterase 2+ H (Negative) Urine WBC (Auto) 11-20 H (0-5) /hpf Diagnostic Findings Head CT 11/01/24 08:43 CT head/brain wo con CLINICAL HISTORY: vertigo, dizzy. TECHNIQUE: Multiple axial CT images of the head were obtained without contrast. A dose lowering technique was utilized adhering to the principles of ALARA. CT DOSE: 1501.36 mGy.cm COMPARISON: 10/28/2024 FINDINGS: No intracranial hemorrhage seen. No mass effect, midline shift, or hydrocephalus. There are stable mild chronic small vessel ischemic changes. Visualized paranasal sinuses and mastoid air cells are clear. No skull fracture seen. IMPRESSION: No acute findings. ACT 112: Negative or not required by law. The above report was generated using voice recognition software. It may contain grammatical, syntax or spelling errors. Electronically signed by: Yan Campbell M.D. 11/01/2024 9:10 AM ECG Additional Comments: ECG revealed NSR at 67 bpm; QTc 443 Code Status & VTE Plan VTE Prophylaxis Plan VTE Prophylaxis will be ordered: Yes Supervising Physician Co-Signing Physician Notes Attending Attestation & Admit Note: Pt seen/examined, chart reviewed, care plan d/w YARY Peralta. I agree w/ the escalona components of his admission documentation. 84yo female with h/o colon ca currently on capecitabine, remote h/o BPV 20+ years ago, HTN, DM, CKD stage 3. Recent hospitalization for vertigo from 10/28 to 10/29. Despite taking meclizine scheduled several times each day since hospital discharge she returned with ongoing dizziness and spinning/vertigo. Interestingly her vertigo can come on at rest, and can also be provoked by head movements. She has had blurry vision in both eyes, but denies visual field cuts. Denies double vision. Denies tinnitus. 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 PMH/PSH/allergies/meds/sochx - reviewed vitals stable, afebrile gen - NAD, lying comfortably in bed eyes - EOMI, horizontal nystagmus present - fast twitch to the right, no obvious visual field deficits neck - no JVD heart - RRR, s1 s2, no murmur lungs - CTA b/l abd - soft NT ND BS+ ext - no edema, pulses 2+ b/l neuro - strength 5/5 x 4 exts; finger/nose/finger maneuver w/o ataxia; no facial droop; EOMI intact; horizontal nystagmus noted as above; visual chavez full by direct confrontation labs reviewed head CT x 3 in the last 5 weeks including today's head CT --- all negative A/P: 1. dizziness with vertigo - check orthostatic BPs; obtain MRI brain - r/o subacute stroke, although exam and history not c/w stroke PT consult for vestibular eval Place on meclizine TID scheduled 2. colon ca - will check capecitabine drug profile to see if dizziness/vertigo is common side effect with such; however, she has been on this since 07/2024 without previous issues and I doubt is causing her current symptoms other plans per Mr Fabian Vivar MD PG Care Time/CCT Total # of Minutes Spent Total Time Spent with Patient: Total time spent is greater than 50% in coordination of care (as documented) at patient's floor/unit and/or counseling patient: Coding [place] [address] INT INP/OBS CARE 2/55MIN Patient Type Established Medical Decision Making Moderate Complexity Diagnoses Vertigo R42 Asymptomatic bacteriuria R82.71
[2024-11-01] MEDS ORDERED: PROCHLORPERAZINE MALEATE 10 MG TAB PO PRN (16:35)
[2024-11-01] MEDS ORDERED: GLUCOSE 10 TAB/TUBE PO PRN (16:35)
[2024-11-01] MEDS ORDERED: MECLIZINE HCL 25 MG TAB PO PRN (16:35)
[2024-11-01] MEDS ORDERED: GLUCOSE 40% GEL 15 GM TUBE PO PRN (16:35)
[2024-11-01] MEDS ORDERED: DEXTROSE 50% 50 ML SYRINGE IV PRN (16:35)
[2024-11-01] MEDS ORDERED: GLUCAGON FOR INJ 1 MG VIAL SQ PRN (16:35)
[2024-11-01] MEDS ORDERED: ACETAMINOPHEN 325 MG TAB PO PRN (16:35)
[2024-11-01] MEDS ORDERED: CARBOHYDRATES FOR HYPOGLYCEMIA PO PRN (16:35)
[2024-11-01] MEDS: busPIRone 5 MG TAB PO SCH (17:27)
[2024-11-01] MEDS: INSULIN ASPART PER UNIT CHARGE SC SCH (17:28)
[2024-11-01] MEDS: LORazepam 2 MG/1 ML VIAL IV PRN (19:34)
--- NOTE | 2024-11-01 20:34 | Electrocardiogram Report ---
Test Reason : Blood Pressure : */* mmHG Vent. Rate : 67 BPM Atrial Rate : 67 BPM P-R Int : 156 ms QRS Dur : 122 ms QT Int : 412 ms P-R-T Axes : 54 73 4 degrees QTcB Int : 435 ms Normal sinus rhythm Low voltage QRS Right bundle branch block Abnormal ECG When compared with ECG of 28-Oct-2024 14:38, No significant change Confirmed by Jamal Cary ([id number]) on 11/01/2024 8:34:26 PM Referred By: REFERRED SELF Confirmed By: Jamal Cary
[2024-11-01] MEDS ORDERED: NON-FORMULARY MEDICATION (Capecitabine 500 mg tablet) PO SCH (21:00)
[2024-11-01] MEDS: FAMOTIDINE 20 MG TAB PO SCH (21:28)
[2024-11-01] MEDS: DICLOFENAC SOD 1% GEL 100 GM TUBE EXT SCH (21:29)
[2024-11-01] MEDS: METOPROLOL SUCC 50MG EXT REL TAB PO SCH (21:30)
[2024-11-01] MEDS: MECLIZINE 12.5 MG TAB PO SCH (21:32)
[2024-11-01] MEDS: CAPECITABINE 500MG TABLET PO SCH (21:32)
--- NOTE | 2024-11-01 23:06 | Magnetic Resonance Report ---
Exam(s): MRI HEAD Without Contrast EXAM: MR Head Without Intravenous Contrast CLINICAL HISTORY: Intractable vertigo. TECHNIQUE: Magnetic resonance images of the head/brain without intravenous contrast in multiple planes. COMPARISON: CT Brain 11-01-2024. MRI Brain 02-05-2010. FINDINGS: Brain: Age-appropriate central and peripheral atrophy. No acute stroke. Mild degree of supratentorial periventricular and subcortical white matter hyperintensities on FLAIR and T2-weighted images. Likely age related are not deposition the bilateral basal ganglia and dentate nuclei. No mass lesion. No acute hemorrhage or abnormal extra-axial fluid collection. Ventricles: No midline shift. No ventriculomegaly. Bones/joints: Unremarkable. No acute fracture. Sinuses: Unremarkable as visualized. No acute sinusitis. Mastoid air cells: Unremarkable as visualized. No mastoid effusion. Orbits: Unremarkable as visualized. IMPRESSION: 1. No acute stroke or hemorrhage. 2. Nonspecific white matter changes most commonly seen with small vessel disease. Electronically signed by: Aristides Simms M.D. 11/01/24 23:05 PM
[2024-11-01 23:26] VITALS: RESP 18
[2024-11-02 07:38] LABS: Basophils # (auto) 0.02 K/uL (0.00-0.20); Basophils % (auto) 0.5 %; Eosinophils # (auto) 0.18 K/uL (0.00-0.50); Eosinophils % (auto) 4.3 %; Hematocrit (blood only) 35.3 % (37.0-47.0); Hemoglobin 11.7 g/dl (12.0-16.0); Immature Granulocytes # (auto) 0.01 K/uL (0.01-0.20); Immature Granulocytes % (auto) 0.2 %; Lymphocytes # (auto) 1.28 K/uL (1.20-3.40); Lymphocytes % (auto) 30.7 %; Mean Corpuscular Hemoglobin 32.4 pg (25.0-34.0); Mean Corpuscular Hgb Conc 33.1 g/dL (32.0-36.0); Mean Corpuscular Volume 97.8 fL (80.0-100.0); Mean Platelet Volume 9.8 fL (9.4-12.4); Neutrophils # (auto) 2.18 K/uL (1.40-6.50); Neutrophils % (auto) 52.3 %; Platelet Count 157 K/uL (130-400); RDW Coefficient of Variation 21.3 % (11.5-14.5); RDW Standard Deviation 74.8 fL (36.4-46.3); Red Blood Count 3.61 M/uL (4.20-5.40); White Blood Count 4.17 K/ul (4.8-10.8)
[2024-11-02 07:52] LABS: BUN Creatinine Ratio 20.3 (10-20); Calcium 8.7 mg/dl (8.6-10.3); Potassium 4.8 mmol/L (3.5-5.1)
[2024-11-02 08:01] LABS: Anisocytosis Present
[2024-11-02] MEDS: ATORVASTATIN 40 MG TAB PO SCH (08:15)
[2024-11-02] MEDS: FERROUS SULFATE 325 MG TAB PO SCH (08:15)
[2024-11-02] MEDS: amLODIPine BESYLATE 5 MG TAB PO SCH (08:15)
[2024-11-02] MEDS: LANTUS PER UNIT CHARGE SQ SCH (09:33)
[2024-11-02] MEDS: SODIUM CHLORIDE 0.9% 500 ML IV ONE (13:01)
[2024-11-02] MEDS: guaiFENesin 600 MG TABCR PO SCH (17:44)
[2024-11-02] MEDS: SODIUM CHLORIDE 0.65% NA SOLN 45 ML (OCEAN) PRN (17:44)
--- NOTE | 2024-11-02 19:54 | Hospitalist Progress Note ---
Date of Service November 02, 2024 Assessment & Plan (1) Vertigo: (2) Asymptomatic bacteriuria: Plan 84-year-old female with refractory vertigo. Recent [facility] admission 10/28 - 10/29 for similar. h/o BPV years ago. #Vertigo MRI brain neg for stroke Has had a few episodes of very brief b/l blurry vision but I don't think it is related to the vertigo Positive response to the meclizine - cont 12.5mg TID for now Await vestibular eval by PT Was cleared for home by OT Send to ENT post-d/c for the vertigo She also has been having chronic sinus issues #T2DM Last A1c at 6.3% on 09/14/2024 Hold metformin, empagliflozin Patient is normally on Lantus 54 units QAM Lantus 27 u BID while inpatient Cont Novolog SSI #Rhinitis / nasal congestion - saline spray mucinex for congestion astelin nasal spray BID previous use of flonase did not help #CKD #Colon cancer Continue capecitabine #HTN - given the orthostasis will lower her meto succ to once daily from BID dosing check orthos again tomorrow am hold lisinopril cont amlodipine for now watch overnight if vertigo is controlled d/c tomorrow am updated at bedside today Admission and Anticipated Discharge Date Admission Date: November 01, 2024 Subjective vertigo resolved no spins no dizziness or lightheadedness her orthostatic BPs were mildly positive today and additional fluid given with improved BPs we discussed lowering her meto succ dose we discussed ENT f/u for the vertigo and she reports chronic sinus issues as well tele overnight wnl Review of Systems Review of Systems: cv - no chest pain pulm - no dyspnea Gi - no N/V/D/abd pain Physical Exam Physical Exam: gen - looks well, NAD eyes - mild nystagmus, horizontal, fast twitch to the right; EOMI; PERRL mouth - MMM heart - RRR, s1 s2, no murmur lungs - CTA b/l abd - soft NT ND BS+ ext - no edema, pulses 2+ b/l neuro - finger/nose/finger w/o ataxia, strength 5/5 Results & Data Results & Data Vital Signs (Past 12 Hours) Vital Signs Temp Pulse Pulse Resp BP Pulse Ox O2 Del Method 11/02/24 15:39 36.6 C 73 18 120/71 96 Room Air 11/02/24 13:01 68 11/02/24 11:52 36.4 C L 63 18 93/59 L 96 Room Air Laboratory Results Laboratory Results - last 48 hr 11/01/24 11/01/24 11/02/24 17:14 20:58 07:09 WBC 4.17 L RBC 3.61 L Hgb 11.7 L Hct 35.3 L MCV 97.8 MCH 32.4 MCHC 33.1 RDW Std Deviation 74.8 H RDW Coeff of Rachid 21.3 H Plt Count 157 MPV 9.8 Immature Gran % (Auto) 0.2 Neut % (Auto) 52.3 Lymph % (Auto) 30.7 [place] % (Auto) 12.0 Eos % (Auto) 4.3 Baso % (Auto) 0.5 Neut # (Auto) 2.18 Lymph # (Auto) 1.28 [place] # (Auto) 0.50 Eos # (Auto) 0.18 Baso # (Auto) 0.02 Immature Gran # (Auto) 0.01 Anisocytosis Present Sodium 138 Potassium 4.8 Chloride 108 H Carbon Dioxide 25 Anion Gap 5 BUN 29 H Creatinine 1.43 H Est Cr Clr Drug Dosing 29.0 eGFR 36.17 BUN/Creatinine Ratio 20.3 H Glucose 85 POC Glucose 86 116 H Calcium 8.7 11/02/24 11/02/24 11/02/24 07:56 12:02 17:20 WBC RBC Hgb Hct MCV MCH MCHC RDW Std Deviation RDW Coeff of Rachid Plt Count MPV Immature Gran % (Auto) Neut % (Auto) Lymph % (Auto) [place] % (Auto) Eos % (Auto) Baso % (Auto) Neut # (Auto) Lymph # (Auto) [place] # (Auto) Eos # (Auto) Baso # (Auto) Immature Gran # (Auto) Anisocytosis Sodium Potassium Chloride Carbon Dioxide Anion Gap BUN Creatinine Est Cr Clr Drug Dosing eGFR BUN/Creatinine Ratio Glucose POC Glucose 95 124 H 97 Calcium PG Care Time/CCT Total # of Minutes Spent Total Time Spent with Patient: Total time spent is greater than 50% in coordination of care (as documented) at patient's floor/unit and/or counseling patient: Coding Level of Care Code 60782 SUB INP/OBS CARE 2/35MIN Diagnoses Vertigo R42 Asymptomatic bacteriuria R82.71
[2024-11-02] MEDS: AZELASTINE HCL 0.1% NASAL 200 SPRAYS/27,400 MCG BTL SCH (21:04)
[2024-11-03 08:00] VITALS: PULSE 70
[2024-11-03] MEDS: METOPROLOL SUCC 50MG EXT REL TAB PO SCH (09:03)
[2024-11-03 10:35] LABS: Hypersegmented Neutrophils 1+
[2024-11-03 11:10] VITALS: BP 106/69; TEMP 97.3; O2SAT 94
--- NOTE | 2024-11-03 12:36 | Discharge Summary ---
Discharge Summary Date of Service date of admission - November 01, 2024 date of discharge - November 03, 2024 Principal Dx & Hospital Course #1 = Principal Diagnosis (1) Vertigo: (2) Orthostatic hypotension: Plan 84-year-old female with history of T2DM/HTN who presented with ongoing/refractory vertigo. Recent [facility] admission 10/28 - 10/29 for similar symtpoms. Patient reported h/o BPV years ago. #Vertigo - * MRI brain negative for stroke * She reported a few episodes of very brief bilateral blurry vision while here but it seemed unrelated to her vertigo; no visual field cuts were experienced during the stay * She had a positive response to meclizine while here * Underwent vestibular eval by PT - they could not localize her vertigo symptoms to either ear * Was cleared for home by PT/OT * Will send to ENT post-d/c for the vertigo as well as chronic hearing loss & sinus symptoms * At discharge she will make meclizine scheduled for a few days, then resume prn usage thereafter #Orthostasis - * patient noted to have orthostatic hypotension but she did not have c/o discrete dizziness/lightheadedness * [id number] we made the following adjustments in her BP meds - * HOLD lisinopril * LOWER metoprolol succinate from 50mg BID ----> 50mg once daily * can cont amlodipine for now * on day of discharge systolic BP was 129 laying down, dropping modestly to 112 systolic with standing; no symptoms #T2DM - * Last A1c at 6.3% on 09/14/2024 * Hold metformin as CrCl is about 25-30 (borderline function to be using metformin at this point) * can continue empagliflozin * can continue Trulicty SC weekly * continue Lantus 54 units QAM #Rhinitis / nasal congestion - * cont saline spray prn * cont mucinex BID for congestion * cont astelin nasal spray BID scheduled or prn * of note - previous use of flonase did not help her sinus symptoms #CKD stage 4 - * CrCl about 25-30 * discharge creatinine 1.4 (baseline) #Colon cancer - stage III - * follows with Dr Mark Teixeira - [facility] * continue capecitabine 2gm BID #HTN - * given the orthostasis lowered her metoprolol succinate to once daily dosing from BID dosing * hold lisinopril * cont amlodipine for now #hyponatremia - * had such during the prior admission * however, Na levels were NORMAL this stay on 3 separate checks Notes For Next Care Provider If blurry vision episodes persist recommend full eye exam with eye provider Medication Changes From Visit 1. hold lisinopril 2. hold metformin 3. LOWER metoprolol succinate from 50mg BID ---> 50mg daily 4. meclizine prn Admission HPI Per Admitting Provider Mrs. Tatum is an 84-year-old female with PMH of T2DM, HTN, gout, CKD stage III, and labyrinthitis. She presented on 11/01 for intractable dizziness/room spinning/bilateral blurry vision. Recent [facility] admission from 10/28 -10/29 for symptoms of vertigo. Patient felt okay upon discharge, but then her vertigo returned yesterday, and she developed blurry vision last night. The blurry vision is worse in her right eye; she does wear glasses at baseline. The vertigo/disequilibrium has been constant, however the "room spinning" at rest comes and goes. Patient would wake up while sleeping last night, in the room w ith to be spinning. Patient has been taking meclizine 25 mg p.o. at home every 8 hours for her vertigo this week, which would help sometimes, but other times it did not work. No prior history of stroke. No slurred speech, facial droop, unilateral deficits. No recent falls or syncope. Patient took her regular morning medicine today; no recent change in medications. Patient manages her own medicine at home. She has had no nausea or vomiting since Tuesday. Additionally, she does have a history of UTIs, but does not have any urinary symptoms at this time. Patient is a former tobacco cigarette smoker; quit 23 years ago. No recent alcohol use. Patient's vitals are stable at time admission. ED course: Zofran 4 mg IV Meclizine 25 mg p.o. NSS 500 mL IV Ceftriaxone 1000 mg IV ROS: Patient endorses dizziness, blurry vision bilaterally, nausea, and one episode of vomiting (on Tuesday, secondary to dizziness; resolved). Patient denies fatigue, slurred speech, rashes, tickbites, headache, tinnitus, chest pain, chest palpitations, SOB, cough, abdominal pain, diarrhea, burning with urination, or dysuria. Discharge Exam gen - looks well, NAD eyes - minimal nystagmus, horizontal, fast twitch to the right; EOMI; PERRL mouth - MMM heart - RRR, s1 s2, no murmur lungs - CTA b/l abd - soft NT ND BS+ ext - no edema, pulses 2+ b/l neuro - finger/nose/finger w/o ataxia, strength 5/5 Discharge Plan Discharge Items Patient Disposition: Home - Self-Care Reason For Visit: VERTIGO Discharge Diagnosis: 1. vertigo (spinning) - improved; MRI brain negative for stroke 2. mildly low blood pressure with standing - improved 3. recently low sodium level - resolved 4. history of colon cancer 5. diabetes 6. recent sinus congestion Activity: As commented below Activity Comment: plan to take it easy for a few days and do light activities only Driving/Machine Use: NO DRIVING UNTIL VERTIGO IS COMPLETELY RESOLVED & YOU ARE OFF THE MECLIZINE Non-emergency contact: Primary Care Provider and Specialist Call non-emergency contact if: you have any medication questions and your symptoms worsen Follow-up/Referrals: Arun Solares MD [Physician] - (we will assist you in getting an appointment with ears, nose, & throat clinic for the vertigo ) Krystal Jung MD [Primary Care Provider] - 11/09/24 9:30 am Diet: Carb Consistent or DM2 Addtl Attending Provider Instructions: Mrs Tatum, You were hospitalized due to ongoing vertigo/dizziness. You underwent MRI of the brain - this did NOT show any stroke, tumor, blood, etc. Thus, the dizziness & vertigo are not due to a problem with the brain itself. The vertigo is likely coming from one of the ears; specifically, it comes from the "inner ear." See handout. The vertigo (spinning) improved with meclizine. In addition we noted that when you stood up your blood pressures were borderline low. This improved with some IV fluids, reducing the dose of your metoprolol, and holding your lisinopril. The low blood pressure problem with standing can contribute to dizziness as well. Recommendations - 1. meclizine - * take 12.5mg (1/2 tablet) twice daily x 3 days, then - * take 12.5mg (1/2 tablet) once daily x 2 days, then use as needed thereafter * meclizine can give you dry eyes, constipation, make you tired, etc. * it is even possible that the meclizine may have contributed to your recent blurry vision * if you have dry eyes, blurry vision, or discomfort try using some lmwd-gnr-kaftfcy "artificial tears" 2. blood pressure medicine - * reduce your metoprolol succinate from twice daily to ONCE DAILY ONLY (take in the morning only) * HOLD your lisinopril * continue your amlodipine as previous 3. for sinus/nasal congestion - * xmpn-tll-edkutwk mucinex as needed * jgiw-xbv-zmrufyl astelin (azelastine) -- 2 squirts in each notril up to twice daily as needed * tvbz-uia-sybryiz saline spray as needed/as desired 4. no driving a car until the vertigo & dizziness are fully resolved and you are no longer taking the meclizine medication 5. if you continue to have episodes of blurry vision please see your eye doctor for an eye exam 6. hold your metformin unless Dr Jung asks you to take it Follow-up - see Dr Jung this week We will also get you an appointment with ears/nose/throat in the future Return to [facility] if - * you have severe vertigo/dizziness that is not responding to your meclizine * you have trouble with walking/balance or have falls * you have severe nausea/vomiting * you develop double vision * any other concerns It was our pleasure to care for you! -Dr Vivar Pending Studies at Discharge: No Stand-Alone Forms: [facility], Smoking Cessation Medications and DC Order Prescriptions: New azelastine 137 mcg (0.1 %) [place],Non-Aerosol 2 spray NA BID PRN (Reason: runny nose /congestion) Qty: 1 0RF Rx Instructions: this medicine is found [id number]-awdxvqc if you wish to purchase it in the ture guaifenesin [Mucinex] 600 mg Tablet Extended Release 12hr 600 mg PO Q12 PRN (Reason: congestion) Qty: 1 0RF Rx Instructions: purchase [id number] Continued (DME) OneTouch Ultra Test Strip See Rx Instructions .Route Qty: 100 5RF Rx Instructions: Test daily buspirone 5 mg tablet 5 mg PO TID Qty: 270 1RF Jardiance 25 mg tablet 25 mg PO QAM 90 Days Qty: 90 4RF insulin glargine [Lantus Solostar U-100 Insulin] 100 unit/mL (3 mL) insulin pen 54 unit SQ QAM Qty: 15 3RF Rx Instructions: 54 units subcut daily; atorvastatin 40 mg tablet 40 mg PO DAILY Qty: 90 3RF cholecalciferol (vitamin D3) 25 mcg (1,000 unit) capsule 25 mcg PO QPM ferrous sulfate [FeroSul] 325 mg (65 mg iron) tablet 325 mg PO DAILY (DME) pen needle, diabetic 31 gauge x 3/16" needle See Rx Instructions .ROUTE .MEDSUPPLY Rx Instructions: As directed- Once Daily ondansetron HCl 8 mg tablet 8 mg PO Q8H PRN (Reason: Nausea And Vomiting) loperamide [Imodium A-D] 2 mg tablet 2 mg PO Q6H PRN (Reason: Diarrhea) diclofenac sodium 1 % gel 2 g topical BID Rx Instructions: apply to hands; for hand includes palm/fingers/back of hand capecitabine 500 mg tablet 2,000 mg PO BID Rx Instructions: On 2 weeks, off 1 week cranberry extract 250 mg capsule 250 mg PO QAM Rx Instructions: administer with a meal famotidine 20 mg tablet 20 mg PO QPM lorazepam 1 mg tablet 0.5 mg PO UD PRN (Reason: vertigo) Rx Instructions: Take 1 tab [address] scan; may repeat dose immediately prior to CT if symptoms occur Trulicity 1.5 mg/0.5 mL pen injector 1.5 mg SUBCUT WK Patient Comments: wednesdays meclizine 25 mg tablet 25 mg PO UD PRN (Reason: motion sickness/vertigo) Qty: 20 0RF Rx Instructions: take 1/2 tablet (12.5mg) twice daily x 3 days, then 1 tab daily x 2 days, then use as needed thereafter amlodipine 5 mg tablet 5 mg PO QAM prochlorperazine maleate 10 mg tablet 10 mg PO Q8 PRN (Reason: as directed) Changed metoprolol succinate 50 mg tablet extended release 24 hr 50 mg PO QAM Qty: 180 3RF Held metformin 1,000 mg tablet 1,000 mg PO BID Qty: 180 3RF Hold Instructions: Due to borderline kidney function levels please HOLD your metformin unless Dr Jung asks you to resume it lisinopril 40 mg tablet 40 mg PO QAM Qty: 90 3RF Hold Instructions: HOLD unless Dr Jung advises you to resume the medicine Discharge Orders: Discharge Order (Routine); Ordered 11/03/24 Ordered By: Arnold Em/Other Patient Handouts: Vertigo Staying Safe, ED Vertigo, Unspecified Admission Data Admit Date/Time: 11/01/24 13:52 Attending Provider: Arnold Vivar Admit Provider: Arnold Vivar Primary Care Provider: Krystal Jung Other Providers: Arnold Vivar Other Interventions: Discharge Summary Assessment (RN) Last Done: 11/03/24 12:25 Hospital Stay Data Consultations PT, OT Diagnostic Imagining Performed Head CT 11/01/24 08:43 CT head/brain wo con CLINICAL HISTORY: vertigo, dizzy. TECHNIQUE: Multiple axial CT images of the head were obtained without contrast. A dose lowering technique was utilized adhering to the principles of ALARA. CT DOSE: 1501.36 mGy.cm COMPARISON: 10/28/2024 FINDINGS: No intracranial hemorrhage seen. No mass effect, midline shift, or hydrocephalus. There are stable mild chronic small vessel ischemic changes. Visualized paranasal sinuses and mastoid air cells are clear. No skull fracture seen. IMPRESSION: No acute findings. ACT 112: Negative or not required by law. The above report was generated using voice recognition software. It may contain grammatical, syntax or spelling errors. Electronically signed by: Yan Campbell M.D. 11/01/2024 9:10 AM Brain MRI 11/01/24 13:12 Exam(s): MRI HEAD Without Contrast EXAM: MR Head Without Intravenous Contrast CLINICAL HISTORY: Intractable vertigo. TECHNIQUE: Magnetic resonance images of the head/brain without intravenous contrast in multiple planes. COMPARISON: CT Brain 11-01-2024. MRI Brain 02-05-2010. FINDINGS: Brain: Age-appropriate central and peripheral atrophy. No acute stroke. Mild degree of supratentorial periventricular and subcortical white matter hyperintensities on FLAIR and T2-weighted images. Likely age related are not deposition the bilateral basal ganglia and dentate nuclei. No mass lesion. No acute hemorrhage or abnormal extra-axial fluid collection. Ventricles: No midline shift. No ventriculomegaly. Bones/joints: Unremarkable. No acute fracture. Sinuses: Unremarkable as visualized. No acute sinusitis. Mastoid air cells: Unremarkable as visualized. No mastoid effusion. Orbits: Unremarkable as visualized. IMPRESSION: 1. No acute stroke or hemorrhage. 2. Nonspecific white matter changes most commonly seen with small vessel disease. Electronically signed by: Aristides Simms M.D. 11/01/24 23:05 PM Pending Results Patient Have Any Pending Studies at Discharge: No Discharge Instructions Given to Patient (Per Discharging Provider) Mrs Tatum, Honorio were hospitalized due to ongoing vertigo/dizziness. You underwent MRI of the brain - this did NOT show any stroke, tumor, blood, etc. Thus, the dizziness & vertigo are not due to a problem with the brain itself. The vertigo is likely coming from one of the ears; specifically, it comes from the "inner ear." See handout. The vertigo (spinning) improved with meclizine. In addition we noted that when you stood up your blood pressures were borderline low. This improved with some IV fluids, reducing the dose of your metoprolol, and holding your lisinopril. The low blood pressure problem with standing can contribute to dizziness as well. Recommendations - 1. meclizine - * take 12.5mg (1/2 tablet) twice daily x 3 days, then - * take 12.5mg (1/2 tablet) once daily x 2 days, then use as needed thereafter * meclizine can give you dry eyes, constipation, make you tired, etc. * it is even possible that the meclizine may have contributed to your recent blurry vision * if you have dry eyes, blurry vision, or discomfort try using some mhsz-zyy-edcntjc "artificial tears" 2. blood pressure medicine - * reduce your metoprolol succinate from twice daily to ONCE DAILY ONLY (take in the morning only) * HOLD your lisinopril * continue your amlodipine as previous 3. for sinus/nasal congestion - * qlyj-dno-zjlsneo mucinex as needed * neek-xgt-kfygcaw astelin (azelastine) -- 2 squirts in each notril up to twice daily as needed * fvgc-zjs-nsjcrzm saline spray as needed/as desired 4. no driving a car until the vertigo & dizziness are fully resolved and you are no longer taking the meclizine medication 5. if you continue to have episodes of blurry vision please see your eye doctor for an eye exam 6. hold your metformin unless Dr Jung asks you to take it Follow-up - see Dr Jung this week We will also get you an appointment with ears/nose/throat in the future Return to [facility] if - * you have severe vertigo/dizziness that is not responding to your meclizine * you have trouble with walking/balance or have falls * you have severe nausea/vomiting * you develop double vision * any other concerns It was our pleasure to care for you! -Dr Vivar Total Time Total Time Spent Total Time Spent (In Minutes): 45 Coding Level of Care Code 20028 INP/OBS DISCH >30 MIN Diagnoses Vertigo R42 Orthostatic hypotension I95.1
== END 2024-11-03 13:12 | disposition home or self-care (01) ==
LOC: ED 08:25 → 2W 08:25